=== PATIENT | female | born 1945 | race Caucasian/White ===

== ENCOUNTER 2020-07-04 09:30 | Observation (INO) | payer MEDICARE, SELFPAY ==
[2020-07-04] VITALS (10 sets, daily range): BP systolic 101–144; BP diastolic 50–68; PULSE 72–88; RESP 16–18; TEMP 36.4–37.7; O2SAT 92–99; BMI 38.5
--- NOTE | ~2020-07-04 | CT_ITS ---
EXAMINATION: CT brain wo con DATE: 07/04/2020 15:28 INDICATION: Headache TECHNIQUE: Computed tomography (CT) of the head was performed without intravenous contrast. Sagittal and coronal reconstructions were performed. The mA was adjusted according to patient size. Iterative reconstruction technique was employed. The dose-length product was 605.33 mGy-cm. COMPARISON: head CT dated 11/04/2012 FINDINGS: No acute intracranial hemorrhage, acute infarction or abnormal extra axial fluid collection. There is mild scattered white matter hypoattenuation consistent with chronic small vessel ischemic disease. Ventricles are normal and symmetric. No mass/mass effect. The orbits, paranasal sinuses and mastoid a ir cells are normal. Intracranial calcified cerebral atherosclerosis is noted. IMPRESSION: 1. No acute intracranial process. 2. Age-related changes with mild scattered white matter hypoattenuation consistent with chronic small vessel ischemic disease. Reviewed, dictated and finalized at location A. IMPRESSION: 1. No acute intracranial process. 2. Age-related changes with mild scattered white matter hypoattenuation consist ent with chronic small vessel ischemic disease.
--- NOTE | ~2020-07-04 | CT_ITS ---
EXAMINATION: CTA chest PE protocol EXAM DATE: 07/04/2020 12:36 INDICATION: Chronic thoracic pain. Generalized weakness and body aches. TECHNIQUE: Spiral CTA of the chest (pulmonary arteries) was performed with 100 cc Omnipaque 350 intr avenous contrast injection. Images were acquired during the pulmonary arterial phase. Coronal maxi mum intensity projection 3D-reconstructions were created by the technologist on dedicated workstation . Axial, coronal and sagittal reformatted images were reviewed. The dose-length product (DLP) for t his examination was 988.17 mGy-cm. The exposure was tailored according to patient size (auto mA exp osure control), and iterative reconstruction (ASIR) was used as additional dose reduction technique. Correlation is made to chest x-ray same day. FINDINGS: There are no pulmonary emboli in the 1st through 3rd order (central and interlobar) pulmon kwasi arteries. Some loss of attenuation in the left basilar segmental pulmonary arteries due to respi ratory motion, but no intraluminal filling defects suspected. No thoracic aortic dissection. Some l inear left basilar scarring, with elevated left hemidiaphragm. There are no pleural or pericardial e ffusions. Tracheobronchial tree is patent. There is no mediastinal, hilar or axillary lymphadenop athy. There is no pneumothorax. Heart normal in size. There is mild coronary arterial calcifica tion, arterial sclerosis. Anterior upper abdominal mesh. Right thyroid lobe nodule. There is mild t horacic spondylosis without osteoblastic or osteolytic lesions identified. IMPRESSION: 1. Limited left basilar segmental evaluation, but no pulmonary emboli are suspected or other acute f indings. 2. Left basilar scarring, elevated hemidiaphragm. Reviewed, dictated and finalized at location A. IMPRESSION: 1. Limited left basilar segmental evaluation, but no pulmonary emboli are susp ected or other acute findings. 2. Left basilar scarring, elevated hemidiaphragm.
--- NOTE | ~2020-07-04 | XR_ITS ---
EXAMINATION: XR chest 1V portable EXAM DATE: 07/04/2020 10:38 INDICATION: Pain all over. TECHNIQUE: Portable AP frontal chest x-ray was obtained. Comparison is made to prior examination from 09/26/2019. FINDINGS: Chronic left hemidiaphragm elevation, possible paralysis. This is unchanged. The lungs are clear. There are no pleural effusions. The cardiomediastinal silhouette is within normal limits. T here is no pneumothorax suspected. The bones and soft tissues are unremarkable. IMPRESSION: Chronic left hemidiaphragm elevation. Reviewed, dictated and finalized at location A.
--- NOTE | 2020-07-04 10:27 | ECG_ITS ---
Measurements Intervals [place] Rate: 78 P: 50 [place]: 135 QRS: -4 QRSD: 103 T: -8 QT: 400 QTc: 457 Interpretive Statements SINUS RHYTHM INCOMPLETE RIGHT BUNDLE BRANCH BLOCK LOW QRS VOLTAGE IN PRECORDIAL LEADS NONSPECIFIC ST & T-WAVE ABNORMALITY- ANT/INF LEADS BORDERLINE ECG Electronically Signed On 07-04-2020 16:53:55 CDT by Jonnathan Galdamez D.O.
[2020-07-04] MEDS: SODIUM CHLORIDE 0.9% IV 500 ML 999 ML IV CONT (10:46)
[2020-07-04] MEDS: FAMOTIDINE 20 MG/2 ML VIAL IV PUSH (10:46)
[2020-07-04 10:57] LABS: Basophils Percent Auto 0.2 % (0.2-1.2); Eosinophils Absolute Auto 0.1 K/mm3 (0-0.3); Eosinophils Percent Auto 0.3 % (0-4.4); Hematocrit 39.9 % (37.0-47.0); Hemoglobin 13.3 g/dL (12.0-15.0); Immature Granulocyte Absolute 0.09 K/mm3 (0.00-0.031); Immature Granulocyte Percent A 0.6 % (0-0.5); Lymphocytes Absolute Auto 0.71 K/mm3 (0.9-3.2); Lymphocytes Percent Auto 4.5 % (18.3-44.2); Mean Corpuscular HGB Conc 33.3 g/dl (32-36); Mean Corpuscular Hemoglobin 29.7 pg (26-34); Mean Corpuscular Volume 89.1 fl (80-100); Mean Platelet Volume 9.7 fl (7.4-10.4); Monocytes Absolute Auto 0.8 K/mm3 (0.1-0.6); Neutrophils Percent Auto 89.4 % (45.5-73.1); Platelet Count Result 283 k/mm3 (150-375); Red Blood Count 4.48 M/mm3 (4.2-5.4); Red Cell Distribution Width 14.6 % (11.5-14.5); White Blood Count 15.7 K/mm3 (4.5-10.0)
[2020-07-04 11:05] LABS: Ovalocytes 1+ (NORMAL); Platelet Estimate Adequate (Adequate)
[2020-07-04 11:06] LABS: INR 1.1; Prothrombin Time 13.8 Seconds (11.1-14.7)
[2020-07-04 11:07] LABS: Partial Thromboplastin Time 27.8 SECONDS (22.3-36.8)
[2020-07-04 11:07] LABS: Add Urine Microscopic? YES; Appearance Urine Clear (Clear); Bilirubin Urine 1+ (Negative); Blood Urine Negative (Negative); Color Urine Yellow (Yellow); Glucose Urine UA Negative (Negative); Ketones Urine Trace mg/dL (Negative); Leukocyte Esterase Ur Negative LEU/UL (Negative); Mucus Urine Heavy /lpf; Nitrate Urine Negative (Negative); Protein Urine 1+ mg/dL (Negative); Specific Grav Ur 1.028 (1.001-1.035); Squamous Epithelial Cell Urine Rare /hpf (Few); Urobilinogen Urine Negative mg/dL (<2.0); WBC Urine 0-3 /hpf
[2020-07-04 11:09] LABS: D Dimer 0.75 ug/mL (<0.48)
[2020-07-04 11:19] LABS: Alanine Aminotransferase 16 U/L (4-35); Albumin Level 3.9 g/dL (3.5-5.1); Alkaline Phosphatase 76 U/L (38-126); Anion Gap 6 mmol/L (8-16); Aspartate Amino Transferase 22 U/L (14-36); Bilirubin,Total 0.7 mg/dL (0.2-1.3); Blood Urea Nitrogen 18 mg/dL (7-17); CRP 6.2 mg/dL (<1.0); Carbon Dioxide 34 mmol/L (22-30); Chloride 99 mmol/L (98-107); Estimated CRCL calculation 75 ml/min; Estimated Glomerular Filt Rate > 60; Glucose 121 mg/dL (65-105); Lipase 25 U/L (23-300); Potassium 3.2 mmol/L (3.4-5.0); Sodium 139 mmol/L (137-145)
[2020-07-04 11:20] LABS: Creatine Kinase 60 U/L (30-135)
[2020-07-04 11:22] LABS: Erythrocyte Sedimentation Rate 26 mm/hr (0-20)
[2020-07-04 11:28] LABS: Troponin I < 0.012 ng/mL (0.000-0.034)
[2020-07-04 12:00] LABS: Alveolar/Arterial O2 Gradient 28.3 mmHg; Base Excess ABG 4.4 mEq/l (+/-2.0); Carboxyhemoglobin 0.8 % THb (0-2.0); Device ROOM AIR; Fractional Inspired Oxygen 21 %; HCO3 ABG 29.1 mEq/l (22.0-26.0); Methemoglobin ABG 0.2 %THb (0-1.5); Modified Allen's Test Pass; Oxygen Saturation ABG 94.3 % (95.0-100.0); Oxyhemoglobin 92.7 % THb (90.0-100.0); PCO2 ABG 43.9 mmHg (35.0-45.0); PO2 ABG 68.9 mmHg (80.0-100.0); PO2 FiO2 Ratio Arterial Blood 3.28 %; Reduced Hemoglobin 6.3 %THb (0-5.0); Site Drawn RIGHT RADIAL
[2020-07-04] MEDS: MORPHINE SULFATE (*CRX) 2 MG/ML INJ IV PUSH ×2 (12:01→19:18)
--- NOTE | 2020-07-04 12:44 | PC.NURSE ---
PT STILL COMPLAINING OF 8/[address] PA YAA AWARE, NEW ORDERS PLACED.
[2020-07-04] MEDS: MORPHINE SULFATE (*CRX) 4 MG/ML INJ IV PUSH (12:49)
--- NOTE | 2020-07-04 13:59 | PC.NURSE ---
ATTEMPTED TO AMBULATE PT, PT STATES THAT SHE FEELS LIGHTHEADED, PT HAS UNSTEADY GAIT AND NEEDS ASSIST X2 TO WALK TO COUNTER. RAJESH MON AWARE.
--- NOTE | 2020-07-04 14:34 | ED.GENADULT ---
HPI - General Adult General Chief complaint: Unspecified Stated complaint: severe pain all over my body Time Seen by Provider: 07/04/20 10:15 Source: patient and family Mode of arrival: EMS Limitations: no limitations History of Present Illness HPI narrative: Patient is a 74-year-old female who presents to emergency department for evaluation of generalized body aches noting pain that woke her in the middle the night emanating from the thoracic region and into the extremities and down the back also noting mild headache. Patient denies injury trauma similar occurrence in the past or sick exposures or contacts. Patient presents by EMS due to the level of pain being on tolerable and difficulty with activity secondary to the pain patient also notes some associated nausea. Patient on arrival to emergency department appears uncomfortable but in no distress. Patient's daughter accompanies her. Patient lives at home by herself and is normally ambulatory without complications. Patient has history of chronic low back pain for which she sees pain management and has received injections but does not currently take narcotics or other medications for this. Related Data Home Medications Medication Instructions Recorded Confirmed bupropion HCl 300 mg PO DAILY 09/26/19 09/26/19 citalopram 40 mg DAILY 09/26/19 09/26/19 gabapentin 300 mg TID 09/26/19 09/26/19 hydrochlorothiazide 50 mg DAILY 09/26/19 09/26/19 omeprazole 20 mg DAILY 09/26/19 09/26/19 potassium chloride 20 meq PO DAILY 09/26/19 09/26/19 propranolol 60 mg PO DAILY 09/26/19 09/26/19 simvastatin 40 mg DAILY 09/26/19 09/26/19 Allergies Allergy/AdvReac Type Severity Reaction Status Date / Time Penicillins Allergy Unknown Rash Verified 09/26/19 16:24 Review of Systems Review of Systems: All systems reviewed & are unremarkable except as noted in HPI and below PMFSH Past Medical History Medical History Chronic low back pain Depression Surgical History Surgical History History of orthopedic surgery Social History Social History Smoking status: Never smoker Gender identity (if verbalized by the patient): Female Exam Narrative: Exam Narrative: GENERAL: Well-appearing, well-nourished, and in no acute distress. HEAD: Normocephalic, atraumatic. EYES: PERRLA and EOMI. ENT: Nares clear, no rhinorrhea or epistaxis. Mucous membranes moist. Oropharynx without tonsillar hypertrophy exudate or other lesions. NECK: Supple. No adenopathy or masses. CHEST: Clear to auscultation. No respiratory distress. No wheezes rales or rhonchi HEART: Regular rate and rhythm. No murmur heard. Normal peripheral pulses. ABDOMEN: Soft, nontender, nondistended EXTREMITIES: Normal range of motion. No edema. Patient has tenderness of the spine with no deformities rashes or other abnormalities noted on exam SKIN: Warm, dry, no rash. NEURO: No focal deficits. Alert and oriented x3. Cranial nerves II through XII grossly intact. Moves all extremities without difficulty but does note pain with moving them PSYCH: Normal mood and affect. Course Course Emergency Course: Patient in the room continued to have pain aware of case findings treatment plan and diagnosis patient did have some improvement with medications however with ambulation or activity patient had difficulty ambulating was off balance with increasing pain. Unsure as to the etiology of the patient's pain could be early illness given the white count however no other high risk changes in the imaging or blood work and will bring the patient in for further evaluation of her pain and new disability secondary to her pain Consultations Consultation #1: Discussed case with hospitalist who has agreed to accept the patient Date: 07/04/20 Time: 14:48 Vital Signs Vital signs: Vital Sig
--- NOTE | 2020-07-04 17:10 | ADMGEN ---
This patient, Adalgisa Wu, was admitted to 2 Medical Room 259-. Patient/family oriented to hospital policies and general routines including ID bracelet, bed and alarms, visiting hours, pain management, procedures, bathroom and other care routines, personal items, smoking policy, room service/diet, and visiting hours. Valuables list has been completed. Information on how to activate the Rapid Response Team has been discussed. Patient/Family are encouraged to report perceived risks to care and to ask questions if they do not understand what they are told or what they should do.
[2020-07-04] MEDS: ONDANSETRON INJ 4 MG/2 ML VIAL IV PUSH (19:27)
[2020-07-04] MEDS: HYDROcodone/acetaminophen (*CRX) 5-325 MG TABLET 1 TAB PO (22:47)
[2020-07-05] MEDS: clonazePAM (*CRX) 0.5 MG TABLET PO ×2 (00:13→21:05)
[2020-07-05] MEDS: POTASSIUM CHLORIDE 20 MEQ TABLET 40 MEQ PO (00:53)
[2020-07-05] MEDS: MORPHINE SULFATE (*CRX) 2 MG/ML INJ IV PUSH ×3 (00:54→15:24)
--- NOTE | 2020-07-05 02:28 | PM.IMHP ---
H&P: HPI History of Present Illness Date/Time: 07/05/20 01:20 Chief complaint: weakness, pain all over Narrative: Adalgisa Wu is a 74 year old female with a past medical history of hypertension, depression, chronic back pain and multiple prior back surgeries who presented to the ER after developing sudden onset of fatigue, myalgias and worsening back pain on 07/03/2020. She states that she had been up earlier that day doing her usual amount of activity without difficulty. Then that evening she was aching all over with increased pain across her shoulder blades in her thoracic spine and in her lumbar spine. She had myalgias, decreased appetite and a mild headache. She denies any cough or cold symptoms. 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 She denies any nausea or vomiting. She has not had any changes in her bowel habits. She denies loss of sense of taste or smell but admits that she really has not eaten anything since the afternoon of the . She reports that the pain in her shoulders is worse with palpation of the muscles. She has some point tenderness over the L5 region along the spinous process but otherwise her lumbar pain extends in the to the paraspinal muscles bilaterally and down into the sacrum. She has not had any loss of sensation or loss of bowel or bladder control. Influenza swab performed in the ER was negative. Review of Systems Review of Systems: Narrative: 12 systems were reviewed with pertinent positives and negatives per HPI. Except as documented in the HPI, all other systems were reviewed and are negative. FORMERLY [facility], 1928–[facility] Past Medical History Medical History (Updated 07/05/20 @ 05:09 by Maddy Rasheed DO) Cataracts, bilateral Maturing Chronic low back pain Managed by Dr. Brennan currently getting treated with injections Depression GERD (gastroesophageal reflux disease) Hypercholesterolemia Obesity Obstructive sleep apnea Non adherent to CPAP therapy TIA (transient ischemic attack) 2014 Surgical History Surgical History (Updated 07/05/20 @ 05:03 by Maddy Rasheed DO) H/O cervical spine surgery 1993 with anterior cervical fusion History of cardiac catheterization Normal May 2019 History of gastric bypass In 2002 with subsequent reversal after prolonged hospitalization due to infection. 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 She is and lives in [place]. She has 1 daughter. Primary care physician: She reports that her primary care physician Dr. Keanu Urias retired last summer. She has not yet become established with a new provider. Code status: Full code Surrogate decision maker: Aure Rodriguez (daughter) Smoking status: Never smoker Second hand tobacco smoke exposure: Yes Alcohol intake: never Substance use: never Gender identity (if verbalized by the patient): Female Sexual Orientation (if Verbalized by the Patient): Straight or Heterosexual Spiritual care concerns: No Meds Home Medications and Allergies Home Medications Medication Instructions Recorded Confirmed Type bupropion HCl 300 mg PO DAILY 09/26/19 07/04/20 History citalopram 40 mg PO DAILY 09/26/19 07/04/20 History gabapentin 300 mg PO BID 09/26/19 07/04/20 History hydrochlorothiazide 50 mg PO DAILY 09/26/19 07/04/20 History omeprazole 20 mg PO DAILY 09/26/19 07/04/20 History potassium chloride 20 meq PO
--- NOTE | 2020-07-05 03:24 | PC.NURSE ---
Due to covid testing patient transferred to med surg. Report given to Eduardo.
[2020-07-05 03:30] VITALS: BP 122/64; PULSE 82; RESP 20; TEMP 36.7; O2SAT 93
[2020-07-05 06:16] LABS: Basophils Percent Auto 0.3 % (0.2-1.2); Eosinophils Absolute Auto 0.1 K/mm3 (0-0.3); Eosinophils Percent Auto 0.5 % (0-4.4); Hematocrit 35.7 % (37.0-47.0); Immature Granulocyte Absolute 0.04 K/mm3 (0.00-0.031); Immature Granulocyte Percent A 0.4 % (0-0.5); Lymphocytes Absolute Auto 1.54 K/mm3 (0.9-3.2); Lymphocytes Percent Auto 14.2 % (18.3-44.2); Mean Corpuscular HGB Conc 33.6 g/dl (32-36); Mean Corpuscular Hemoglobin 30.1 pg (26-34); Mean Corpuscular Volume 89.5 fl (80-100); Mean Platelet Volume 9.9 fl (7.4-10.4); Monocytes Absolute Auto 1.1 K/mm3 (0.1-0.6); Monocytes Percent Auto 9.9 % (2.6-8.5); Neutrophils Absolute Auto 8.1 K/mm3 (1.3-6.7); Neutrophils Percent Auto 74.7 % (45.5-73.1); Platelet Count Result 235 k/mm3 (150-375); Red Blood Count 3.99 M/mm3 (4.2-5.4); Red Cell Distribution Width 14.8 % (11.5-14.5); White Blood Count 10.9 K/mm3 (4.5-10.0)
[2020-07-05 06:28] LABS: Magnesium 1.8 mg/dL (1.6-2.3)
[2020-07-05 06:30] LABS: Anion Gap 6 mmol/L (8-16); Blood Urea Nitrogen 13 mg/dL (7-17); Calcium 8.6 mg/dL (8.4-10.2); Carbon Dioxide 33 mmol/L (22-30); Chloride 99 mmol/L (98-107); Estimated CRCL calculation 83 ml/min; Estimated Glomerular Filt Rate > 60; Glucose 100 mg/dL (65-105); Potassium 3.3 mmol/L (3.4-5.0); Sodium 138 mmol/L (137-145)
[2020-07-05 08:00] VITALS: BP 119/56; PULSE 100; PULSE 82; RESP 16; TEMP 36.7; O2SAT 94
[2020-07-05] MEDS: buPROPion HCL XL (24 HR) 150 MG TABCR 300 MG PO (08:09)
[2020-07-05] MEDS: TRIAMCINOLONE ACET 0.1% CREAM 15 GM TUBE 1 APPLIC TOPICAL (08:09)
[2020-07-05] MEDS: NAPROXEN 500 MG TABLET PO ×2 (08:09→17:47)
[2020-07-05] MEDS: ENOXAPARIN 40 MG/0.4 ML SYRINGE SUB-Q (08:10)
[2020-07-05 08:11] VITALS: PULSE 100
[2020-07-05] MEDS: PROPRANOLOL HCL 60 MG CAPSULE CR 180 MG PO (08:11)
[2020-07-05] MEDS: HYDROcodone/acetaminophen (*CRX) 5-325 MG TABLET 1 TAB PO (08:13)
[2020-07-05] MEDS: SIMVASTATIN 20 MG TABLET 40 MG PO (09:45)
[2020-07-05] MEDS: POTASSIUM CHLORIDE 20 MEQ TABLET.ER PO (09:45)
[2020-07-05] MEDS: hydroCHLOROthiazide 25 MG TABLET 50 MG PO (09:45)
[2020-07-05] MEDS: CITALOPRAM HYDROBROMIDE 20 MG TABLET 40 MG PO (09:45)
[2020-07-05] MEDS: GABAPENTIN 300 MG CAPSULE PO ×2 (09:45→17:47)
[2020-07-05 12:00] VITALS: BP 116/66; PULSE 65; RESP 16; TEMP 36.8; O2SAT 95
[2020-07-05] MEDS: PANTOPRAZOLE SOD SESQUIHYDRATE 20 MG TAB PO (15:24)
[2020-07-05 16:00] VITALS: BP 109/56; PULSE 68; RESP 16; TEMP 36.8; O2SAT 95
--- NOTE | 2020-07-05 16:48 | PM.IMPN ---
Progress Note: A&P Assessment and Plan (1) Leukocytosis: Code(s): D72.829 - Elevated white blood cell count, unspecified Status: Acute Assessment and Plan: Mild leukocytosis with no definitive source of infection, but mildly elevated temperature above baseline at 99.8. Influenza swab is negative. Will check COVID swab given the patient's associated myalgias, fatigue, and headache of somewhat sudden onset. 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 Blood cultures are pending. Is possible the patient could have a osteomyelitis or diskitis given her history of back pain but the distribution of her back pain seems inconsistent with fasting last colitis or diskitis. 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 (2) Myalgia: Code(s): M79.10 - Myalgia, unspecified site Status: Acute Assessment and Plan: Please see above plan (3) Back pain: Code(s): M54.9 - Dorsalgia, unspecified Status: Acute Assessment and Plan: Please see above plan. Physical therapy and occupation therapy have been consulted. Pain medications have been ordered with [place] and morphine as needed. She reports that her pain has improved since admission. Her fatigue and myalgias still persist. 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 Review of Systems Review of Systems: All systems reviewed & are unremarkable except as noted in HPI and below Exam Narrative: Exam Narrative: patient is seen in the room but not examined temperature is 98? point pulse is 60 respiratory 68 pulse ox is 95% on 1 L nasal can, patient is 109/56 Const: General: comfortable and no acute distress HENMT: General nose exam: Normal nares present Eyes: Sclera: sclerae normal Neck: Other: no retraction Resp: Effort & Inspection: normal respiratory effort GI: Other: not distended Skin: General skin exam: normal color Neuro: Speech: normal speech Extrem: General: normal to inspection Psych: Affect: Anxious affect present Objective Data Vital Signs Vital Signs: Vital Signs - 24 hr 07/04/20 16:57 07/04/20 17:19 07/04/20 19:19 Temperature 99.8 F H 97.8 F Pulse Rate 72 83 Respiratory Rate 18 18 Blood Pressure 111/61 128/66 Pulse Oximetry 99 97 07/04/20 22:00 07/05/20 03:30 07/05/20 08:00 Temperature 98.1 F 98.1 F 98.0 F Pulse Rate 88 82 100 Respiratory Rate 16 20 16 Blood Pressure 101/50 L 122/64 119/56 L Pulse Oximetry 94 93 94 07/05/20 08:11 07/05/20 12:00 Temperature 98.3 F Pulse Rate 100 65 Respiratory Rate 16 Blood Pressure 116/66 Pulse Oximetry 95 Intake/Output Intake/Output: Intake & Output 07/02/20 07/03/20 07/04/20 07/05/20 23:59 23:59 23:59 23:59 Intake Total 650 940 Output Total 100 800
[2020-07-05 18:12] LABS: SARS-CoV-2 RNA PCR Negative
[2020-07-05 22:00] VITALS: BP 127/57; PULSE 72; RESP 16; TEMP 36.8; O2SAT 96
[2020-07-06 06:00] VITALS: BP 112/55; PULSE 76; RESP 16; TEMP 36.7; O2SAT 97
[2020-07-06] MEDS: HYDROcodone/acetaminophen (*CRX) 5-325 MG TABLET 1 TAB PO (09:19)
[2020-07-06] MEDS: SIMVASTATIN 20 MG TABLET 40 MG PO (09:19)
[2020-07-06] MEDS: GABAPENTIN 300 MG CAPSULE PO (09:19)
[2020-07-06] MEDS: buPROPion HCL XL (24 HR) 150 MG TABCR 300 MG PO (09:19)
[2020-07-06] MEDS: CITALOPRAM HYDROBROMIDE 20 MG TABLET 40 MG PO (09:20)
[2020-07-06] MEDS: NAPROXEN 500 MG TABLET PO (09:20)
[2020-07-06] MEDS: hydroCHLOROthiazide 25 MG TABLET 50 MG PO (09:20)
[2020-07-06] MEDS: TRIAMCINOLONE ACET 0.1% CREAM 15 GM TUBE 1 APPLIC TOPICAL (09:20)
[2020-07-06] MEDS: ENOXAPARIN 40 MG/0.4 ML SYRINGE SUB-Q (09:20)
[2020-07-06] MEDS: POTASSIUM CHLORIDE 20 MEQ TABLET.ER PO (09:20)
[2020-07-06 09:21] VITALS: PULSE 72
[2020-07-06] MEDS: PROPRANOLOL HCL 60 MG CAPSULE CR 180 MG PO (09:21)
[2020-07-06] MEDS: PANTOPRAZOLE SOD SESQUIHYDRATE 20 MG TAB PO (10:03)
[2020-07-06 10:28] LABS: Hematocrit 36.5 % (37.0-47.0); Mean Corpuscular HGB Conc 32.9 g/dl (32-36); Mean Corpuscular Hemoglobin 29.3 pg (26-34); Mean Platelet Volume 10.1 fl (7.4-10.4); Platelet Count Result 310 k/mm3 (150-375); Red Cell Distribution Width 14.7 % (11.5-14.5); White Blood Count 8.6 K/mm3 (4.5-10.0)
[2020-07-06 10:41] LABS: Anion Gap 4 mmol/L (8-16); Blood Urea Nitrogen 19 mg/dL (7-17); Calcium 8.8 mg/dL (8.4-10.2); Carbon Dioxide 38 mmol/L (22-30); Chloride 95 mmol/L (98-107); Estimated CRCL calculation 74 ml/min; Estimated Glomerular Filt Rate > 60; Glucose 156 mg/dL (65-105); Magnesium 1.8 mg/dL (1.6-2.3); Potassium 3.3 mmol/L (3.4-5.0); Sodium 137 mmol/L (137-145)
[2020-07-06] MEDS: POTASSIUM CHLORIDE 20 MEQ TABLET 40 MEQ PO (11:57)
--- NOTE | 2020-07-06 11:59 | PM.DS ---
DS: Admitting Diagnosis Admitting Diagnosis Admitting Diagnosis: weakness, pain all over DS: Discharge Diagnosis Discharge Diagnosis (1) Leukocytosis: Code(s): D72.829 - Elevated white blood cell count, unspecified Status: Acute Assessment and Plan: Mild leukocytosis with no definitive source of infection, but mildly elevated temperature above baseline at 99.8. Influenza swab is negative. Will check COVID swab given the patient's associated myalgias, fatigue, and headache of somewhat sudden onset. 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 Blood cultures are pending. Is possible the patient could have a osteomyelitis or diskitis given her history of back pain but the distribution of her back pain seems inconsistent with fasting last colitis or diskitis. 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 (2) Myalgia: Code(s): M79.10 - Myalgia, unspecified site Status: Acute Assessment and Plan: Please see above plan (3) Back pain: Code(s): M54.9 - Dorsalgia, unspecified Status: Acute Assessment and Plan: Please see above plan. Physical therapy and occupation therapy have been consulted. Pain medications have been ordered with [place] and morphine as needed. She reports that her pain has improved since admission. Her fatigue and myalgias still persist. DS: Summary Hospital Course Reason for hospitalization: Chief complaint: weakness, pain all over Narrative: Adalgisa Wu is a 74 year old female with a past medical history of hypertension, depression, chronic back pain and multiple prior back surgeries who presented to the ER after developing sudden onset of fatigue, myalgias and worsening back pain on 07/03/2020. She states that she had been up earlier that day doing her usual amount of activity without difficulty. Then that evening she was aching all over with increased pain across her shoulder blades in her thoracic spine and in her lumbar spine. She had myalgias, decreased appetite and a mild headache. She denies any cough or cold symptoms. 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 She denies any nausea or vomiting. She has not had any changes in her bowel habits. She denies loss of sense of taste or smell but admits that she really has not eaten anything since the afternoon of the . She reports that the pain in her shoulders is worse with palpation of the muscles. She has some point tenderness over the L5 region along the spinous process but otherwise her lumbar pain extends in the to the paraspinal muscles bilaterally and down into the sacrum. She has not had any loss of sensation or loss of bowel or bladder control. 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
[2020-07-06 14:00] VITALS: BP 117/56; PULSE 66; RESP 18; TEMP 36.3; O2SAT 98
== END 2020-07-06 14:20 | disposition home or self-care (01) ==
LOC: ANHED 15:37 → ANH2MED 07-05 02:29 → ANH3MEDSUR 07-05 11:05 → ANH2MED 07-08 11:57 → ANH3MEDSUR 07-08 11:57
PROVIDERS: Emergency Medicine Emergency Medical Services; Internal Medicine; Admitting Provider Internal Medicine; Emergency Provider Emergency Medicine; Visit Provider Family Medicine
DX: M79.10 Myalgia, unspecified site (principal); Z20.828 Contact with and (suspected) exposure to other viral communicable diseases; R53.83 Other fatigue; G89.29 Other chronic pain; D72.829 Elevated white blood cell count, unspecified; M54.5 Low back pain; E66.9 Obesity, unspecified; G47.33 Obstructive sleep apnea (adult) (pediatric); Z86.73 Personal history of transient ischemic attack (TIA), and cerebral infarction without residual deficits; Z68.38 Body mass index [BMI] 38.0-38.9, adult; Z79.01 Long term (current) use of anticoagulants
CPT/HCPCS: 36415; 36600; 51701; 70450; 71045; 71275; 80048; 80053; 81001; 82375; 82550; 82805; 83050; 83605; 83690; 83735; 84484; 85025; 85027; 85380; 85610; 85652; 85730; 86140; 87040; 87635; 87804; 93005; 96361; 96365; 96372; 96375; 96376; 97110; 97161; 97165; 97530; 97535; 99285; A9270; C9803; G0378; J0131; J1650; J2270; J2405; J7040; Q9967; U0003

== ENCOUNTER 2020-12-20 19:45 | Emergency (ER) | payer MEDICARE, SELFPAY ==
[2020-12-20 19:57] VITALS: BP 85/64; PULSE 75; RESP 20; TEMP 36; O2SAT 96
--- NOTE | 2020-12-20 20:08 | ED.SKABFB ---
HPI - Skin/Abscess/Foreign Bdy General Chief complaint: Skin/Abscess/Foreign Body Stated complaint: Itching on scalp Time Seen by Provider: 12/20/20 19:55 Source: patient and RN notes reviewed Mode of arrival: ambulatory Limitations: no limitations History of Present Illness HPI narrative: 75-year-old female presents to the [facility] with complaints of an itchy scalp. Patient reports that it started this morning. Has tried taking Benadryl (8 25mg since waking up) with no relief. Was started on antibiotic a week ago for an ingrown toenail. No new creams or ointments lotions or detergents. Patient wears a wig. States that she has been using the tea tree oil on her scalp for over over 1 hours. Denies chest pain or shortness of breath. No facial swelling. No lip swelling. Related Data Home Medications Medication Instructions Recorded Confirmed bupropion HCl 300 mg PO DAILY 09/26/19 12/20/20 citalopram 40 mg PO DAILY 09/26/19 12/20/20 hydrochlorothiazide 50 mg PO DAILY 09/26/19 12/20/20 omeprazole 20 mg PO DAILY 09/26/19 12/20/20 potassium chloride 20 meq PO DAILY 09/26/19 12/20/20 propranolol 60 mg PO DAILY 09/26/19 12/20/20 simvastatin 40 mg PO DAILY 09/26/19 12/20/20 clonazepam 1 mg PO HS 07/04/20 12/20/20 propranolol 120 mg PO DAILY 07/04/20 12/20/20 triamcinolone acetonide 1 applic TOPICAL DAILY 07/04/20 12/20/20 naproxen 375 mg PO BID 12/20/20 12/20/20 sulfamethoxazole-trimethoprim 1 tablet PO BID 12/20/20 12/20/20 Allergies Allergy/AdvReac Type Severity Reaction Status Date / Time Penicillins Allergy Unknown Rash Verified 07/04/20 19:41 chlorhexidine Allergy Rash Verified 07/04/20 19:43 Review of Systems Review of Systems: Narrative: CONSTITUTIONAL: Denies fever, chills, or sweats. EYES: Denies visual changes, redness, or discharge. ENT: Denies rhinorrhea, congestion, sore throat, or otalgia. CARDIOVASCULAR: Denies chest pain, palpitations, or edema. RESPIRATORY: Denies cough or dyspnea. SKIN: Denies rash. Reports itching of the scalp only. MUSCULOSKELETAL: Denies back pain, joint pain, or myalgia. NEUROLOGIC: Denies headache, numbness, or weakness. PSYCHIATRIC: Denies anxiety or depression. All other systems reviewed are negative, except as documented in HPI. [facility] Past Medical History Medical History (Updated 12/21/20 @ 00:00 by Background Daemon) Cataracts, bilateral Maturing Chronic low back pain Managed by Dr. Brennan currently getting treated with injections Depression GERD (gastroesophageal reflux disease) Hypercholesterolemia Obesity Obstructive sleep apnea Non adherent to CPAP therapy TIA (transient ischemic attack) 2014 Surgical History Surgical History H/O cervical spine surgery 1993 with anterior cervical fusion History of cardiac catheterization Normal May 2019 History of gastric bypass In 2002 with subsequent reversal after prolonged hospitalization due to infection. 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 She has 1 daughter. Primary care physician: She reports that her primary care physician Dr. Keanu Urias retired last summer. She has not yet become established with a new provider. Code status: Full code Surrogate decision maker: Aure Rodriguez (daughter) Smoking status: Never smoker Second hand tobacco smoke exposure: Yes Alcohol intake: never Substance use: never
[2020-12-20 20:18] VITALS: BP 89/65
== END 2020-12-20 20:19 | disposition home or self-care (01) ==
PROVIDERS: Emergency Provider Nurse Practitioner; PCP Internal Medicine
DX: L29.9 Pruritus, unspecified (principal); L50.9 Urticaria, unspecified; F32.9 Major depressive disorder, single episode, unspecified; E78.00 Pure hypercholesterolemia, unspecified; K21.9 Gastro-esophageal reflux disease without esophagitis; G47.33 Obstructive sleep apnea (adult) (pediatric); Z86.73 Personal history of transient ischemic attack (TIA), and cerebral infarction without residual deficits; E66.9 Obesity, unspecified; Z68.36 Body mass index [BMI] 36.0-36.9, adult; Z98.84 Bariatric surgery status; Z96.653 Presence of artificial knee joint, bilateral
CPT/HCPCS: 99211; G0463

== ENCOUNTER 2022-09-16 14:48 | Emergency (ER) | payer MEDICARE, SELFPAY ==
--- NOTE | ~2022-09-16 | XR_ITS ---
EXAMINATION: XR chest 2V DATE: 09/16/2022 17:37 INDICATION: Shortness of breath. TECHNIQUE: frontal and lateral views of the chest were obtained. COMPARISON: Chest radiograph and CT dated 07/04/2020 FINDINGS: Chronic eventration along the medial right hemidiaphragm. Unchanged elevation of the lateral left hem idiaphragm with opacities at the left costophrenic angle which on prior CT appear to correspond to a small diaphragmatic hernia containing fat with adjacent atelectasis/scarring. Additional linear bands of discoid atelectasis/scarring at the lingula and left lower lobe best appreciated on the lateral p rojection. No new airspace opacities, pulmonary edema, pleural effusion or pneumothorax. The cardiome diastinal silhouette is within normal limits for AP technique. Moderate thoracic spondylosis. IMPRESSION: 1. No acute cardiopulmonary disease. 2. Chronic atelectasis/scarring at the left lower lung zone. Reviewed, dictated and finalized at location A. NEERING PROGRAMMER
[2022-09-16 15:08] VITALS: BP 112/90; PULSE 80; RESP 18; TEMP 37.2; O2SAT 95
--- NOTE | 2022-09-16 17:07 | ECG_ITS ---
Measurements Intervals [place] Rate: 70 P: 35 CO: 150 QRS: -7 QRSD: 93 T: -6 QT: 391 QTc: 424 Interpretive Statements SINUS RHYTHM LOW QRS VOLTAGE IN PRECORDIAL LEADS [QRS DEFLECTION < 1.0 mV IN CHEST LEADS] COMPARED TO ECG 07/04/2020 11:06:13 NO SIGNIFICANT CHANGES Electronically Signed On 09-16-2022 21:18:13 DOBBY LOOMS PEGGER by Beatirz Jade M.D.
--- NOTE | 2022-09-16 17:16 | ED.GENADULT ---
HPI - General Adult General Chief complaint: Shortness of Breath/Dyspnea Stated complaint: SOB Time Seen by Provider: 09/16/22 16:31 History of Present Illness HPI narrative: 76-year-old female with a history of GERD, HLD, morbid obesity, sleep apnea, TIA presents for evaluation of shortness of breath x1 week. Patient has frequent dry cough which causes a burning sensation in her chest while she is coughing. She was seen at outside hospital and given Keflex and albuterol which is not improving her symptoms. She denies fever. Per family at bedside the patient has a history of chronic bronchitis . Related Data Home Medications Medication Instructions Recorded Confirmed bupropion HCl 300 mg 24 hr tablet, 300 mg PO DAILY 09/26/19 12/20/20 extended release citalopram 40 mg tablet 40 mg PO DAILY 09/26/19 12/20/20 hydrochlorothiazide 50 mg tablet 50 mg PO DAILY 09/26/19 12/20/20 omeprazole 40 mg capsule,delayed 20 mg PO DAILY 09/26/19 12/20/20 release potassium chloride 20 mEq 20 meq PO DAILY 09/26/19 12/20/20 tablet,extended release(part/cryst) propranolol 60 mg capsule,24 60 mg PO DAILY 09/26/19 12/20/20 hr,extended release simvastatin 40 mg tablet 40 mg PO DAILY 09/26/19 12/20/20 clonazepam 1 mg tablet 1 mg PO HS 07/04/20 12/20/20 propranolol 120 mg capsule,24 120 mg PO DAILY 07/04/20 12/20/20 hr,extended release triamcinolone acetonide 0.1 % 1 applic topical DAILY 07/04/20 12/20/20 topical cream naproxen 375 mg tablet 375 mg PO BID 12/20/20 12/20/20 sulfamethoxazole 800 1 tablet PO BID 12/20/20 12/20/20 mg-trimethoprim 160 mg tablet Allergies Allergy/AdvReac Type Severity Reaction Status Date / Time Penicillins Allergy Unknown Rash Verified 09/16/22 15:11 chlorhexidine Allergy Rash Verified 09/16/22 15:11 Sulfa (Sulfonamide Allergy Rash Verified 09/16/22 15:11 Antibiotics) Review of Systems Review of Systems: CONSTITUTIONAL: Denies fever, chills, or sweats. EYES: Denies visual changes, redness, or discharge. ENT: Denies rhinorrhea, congestion, sore throat, or otalgia. CARDIOVASCULAR: Denies chest pain, palpitations, or edema. RESPIRATORY: Denies cough or dyspnea. GASTROINTESTINAL: Denies abdominal pain, nausea, vomiting, or diarrhea. GENITOURINARY: Denies dysuria or hematuria. SKIN: Denies rash or itching. MUSCULOSKELETAL: Denies back pain, joint pain, or myalgia. NEUROLOGIC: Denies headache, numbness, or weakness. PSYCHIATRIC: Denies anxiety or depression. [facility] Past Medical History Medical History Cataracts, bilateral Maturing Chronic low back pain Managed by Dr. Brennan currently getting treated with injections Depression GERD (gastroesophageal reflux disease) Hypercholesterolemia Obesity Obstructive sleep apnea Non adherent to CPAP therapy TIA (transient ischemic attack) 2014 Surgical History Surgical History H/O cervical spine surgery 1993 with anterior cervical fusion History of cardiac catheterization Normal May 2019 History of gastric bypass In 2002 with subsequent reversal after prolonged hospitalization due to infection. 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 She has 1 daughter. Primary care physician: She reports that her primary care physician Dr. Keanu Urias retired last summer. She has not
--- NOTE | 2022-09-16 17:30 | PC.NURSE ---
pt in XRAY at this time.
[2022-09-16 17:52] VITALS: O2SAT 98
[2022-09-16 17:52] LABS: Basophils Percent Auto 0.6 % (0.2-1.2); Eosinophils Absolute Auto 0.1 K/mm3 (0-0.3); Eosinophils Percent Auto 0.9 % (0-4.4); Hematocrit 31.4 % (37.0-47.0); Immature Granulocyte Absolute 0.01 K/mm3 (0.00-0.031); Immature Granulocyte Percent A 0.2 % (0-0.5); Lymphocytes Absolute Auto 0.68 K/mm3 (0.9-3.2); Lymphocytes Percent Auto 12.6 % (18.3-44.2); Mean Corpuscular HGB Conc 31.8 g/dl (32-36); Mean Corpuscular Hemoglobin 26.7 pg (26-34); Monocytes Absolute Auto 0.8 K/mm3 (0.1-0.6); Monocytes Percent Auto 14.7 % (2.6-8.5); Neutrophils Absolute Auto 3.8 K/mm3 (1.3-6.7); Platelet Count Result 300 k/mm3 (150-375); Red Blood Count 3.74 M/mm3 (4.2-5.4); Red Cell Distribution Width 15.9 % (11.5-14.5); White Blood Count 5.4 K/mm3 (4.5-10.0)
[2022-09-16 17:53] VITALS: PULSE 73
[2022-09-16 18:04] VITALS: BP 120/61; PULSE 73; RESP 13; O2SAT 97
[2022-09-16 18:08] LABS: Alanine Aminotransferase 16 U/L (6-35); Albumin Level 3.9 g/dL (3.5-5.1); Alkaline Phosphatase 64 U/L (38-126); Anion Gap 5 mmol/L (8-16); Aspartate Amino Transferase 34 U/L (14-36); Bilirubin,Total 0.5 mg/dL (0.2-1.3); Blood Urea Nitrogen 12 mg/dL (7-17); Calcium 8.5 mg/dL (8.4-10.2); Carbon Dioxide 30 mmol/L (22-30); Chloride 98 mmol/L (98-107); Estimated CRCL calculation 55 ml/min; Estimated Glomerular Filt Rate 54; Glucose 94 mg/dL (65-110); Potassium 3.6 mmol/L (3.4-5.0); Sodium 133 mmol/L (137-145)
[2022-09-16 18:19] LABS: NT Pro B Type Natriuretic Pept 930 pg/mL (5-100); Troponin I < 0.012 ng/mL (0.000-0.034)
[2022-09-16 19:18] VITALS: BP 112/56; PULSE 75; RESP 20; O2SAT 95
[2022-09-16] MEDS: FUROSEMIDE INJ 40 MG/4 ML VIAL IV PUSH (19:19)
[2022-09-16] MEDS: ACETAMINOPHEN 500 MG TABLET 1000 MG PO (19:34)
== END 2022-09-16 19:43 | disposition home or self-care (01) ==
PROVIDERS: Emergency Provider Emergency Medicine; PCP Internal Medicine
DX: I50.9 Heart failure, unspecified (principal); J40 Bronchitis, not specified as acute or chronic; E78.00 Pure hypercholesterolemia, unspecified; K21.9 Gastro-esophageal reflux disease without esophagitis; H26.9 Unspecified cataract; G47.33 Obstructive sleep apnea (adult) (pediatric); G89.29 Other chronic pain; M54.50 Low back pain, unspecified; F32.A Depression, unspecified; E66.01 Morbid (severe) obesity due to excess calories; Z68.36 Body mass index [BMI] 36.0-36.9, adult; Z96.653 Presence of artificial knee joint, bilateral; Z86.73 Personal history of transient ischemic attack (TIA), and cerebral infarction without residual deficits; Z98.84 Bariatric surgery status
CPT/HCPCS: 36415; 71046; 80053; 83880; 84484; 85025; 93005; 96374; 99284; A9270; J1940

== ENCOUNTER 2024-01-18 15:36 | Emergency (ER) | payer MEDICARE, SELFPAY ==
[2024-01-18] VITALS (19 sets, daily range): BP systolic 113–192; BP diastolic 54–94; PULSE 67–81; RESP 11–21; TEMP 36.6; O2SAT 97–100
--- NOTE | ~2024-01-18 | XR_ITS ---
EXAMINATION: XR chest 1V portable DATE: 01/18/2024 16:22 INDICATION: Chest pain. TECHNIQUE: A single frontal view of the chest was obtained. COMPARISON: None. FINDINGS: There is mild elevation of left hemidiaphragm. There is blunting of left lateral costophren ic angle, consistent with scarring. No pleural effusion or pneumothorax. The heart size is normal. IMPRESSION: 1. Scarring in left lateral costophrenic angle. Reviewed, dictated and finalized at location E.
--- NOTE | 2024-01-18 16:05 | ECG_ITS ---
SEE SCANNED COPY FOR CONFIRMED REPORT MTDD
--- NOTE | 2024-01-18 16:20 | ED.GENADULT ---
HPI - General Adult General Chief complaint: Unspecified Stated complaint: SOB, anxious, pain all over History of Present Illness HPI narrative: 78-year-old female presenting to the emergency department for a panic attack. Patient does arrive to the emergency department with a high level of anxiety. Patient was complaining of intermittent chest pain. Family states the patient does have a history of anxiety. Related Data Home Medications Medication Instructions Recorded Confirmed bupropion HCl 300 mg 24 hr tablet, 300 mg PO DAILY 09/26/19 12/20/20 extended release citalopram 40 mg tablet 40 mg PO DAILY 09/26/19 12/20/20 hydrochlorothiazide 50 mg tablet 50 mg PO DAILY 09/26/19 12/20/20 omeprazole 40 mg capsule,delayed 20 mg PO DAILY 09/26/19 12/20/20 release potassium chloride 20 mEq 20 meq PO DAILY 09/26/19 12/20/20 tablet,extended release(part/cryst) propranolol 60 mg capsule,24 60 mg PO DAILY 09/26/19 12/20/20 hr,extended release simvastatin 40 mg tablet 40 mg PO DAILY 09/26/19 12/20/20 clonazepam 1 mg tablet 1 mg PO HS 07/04/20 12/20/20 propranolol 120 mg capsule,24 120 mg PO DAILY 07/04/20 12/20/20 hr,extended release triamcinolone acetonide 0.1 % 1 applic topical DAILY 07/04/20 12/20/20 topical cream naproxen 375 mg tablet 375 mg PO BID 12/20/20 12/20/20 sulfamethoxazole 800 1 tablet PO BID 12/20/20 12/20/20 mg-trimethoprim 160 mg tablet Allergies Allergy/AdvReac Type Severity Reaction Status Date / Time Penicillins Allergy Unknown Rash Verified 09/16/22 15:11 chlorhexidine Allergy Rash Verified 09/16/22 15:11 Sulfa (Sulfonamide Allergy Rash Verified 09/16/22 15:11 Antibiotics) Review of Systems Review of Systems: All systems reviewed & are unremarkable except as noted in HPI and below PMFSH Past Medical History Medical History Cataracts, bilateral Maturing Chronic low back pain Managed by Dr. Brennan currently getting treated with injections Depression GERD (gastroesophageal reflux disease) Hypercholesterolemia Obesity Obstructive sleep apnea Non adherent to CPAP therapy TIA (transient ischemic attack) 2014 Surgical History Surgical History H/O cervical spine surgery 1993 with anterior cervical fusion History of cardiac catheterization Normal May 2019 History of gastric bypass In 2002 with subsequent reversal after prolonged hospitalization due to infection. 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 Primary care physician: She reports that her primary care physician Dr. Keanu Urias retired last summer. She has not yet become established with a new provider. Code status: Full code Surrogate decision maker: Aure Rodriguez (daughter) Smoking status: Never smoker Second hand tobacco smoke exposure: Yes Alcohol intake: never Substance use: never Gender identity (if verbalized by the patient): Female Sexual Orientation (if Verbalized by the Patient): Straight or Heterosexual Spiritual care concerns: No Exam Narrative: APPEARANCE: Well appearing, no pain, no distress, well-nourished. HEAD: normocephalic, atraumatic. EYES: PERRLA/EOMI, conjunctivae clear. NOSE: Normal no drainage EARS:TMS clear with good light reflex. THROAT: Pharynx clear, no exudate. NECK: Supple. No adenopathy, no masses. RESPIRATORY: Airway patent, respirations nonlabored. Clear to auscultation bilaterally, no rales, rhonchi, wheezing. CARDIOVASCULAR: Regular rate and rhythm without murmurs rubs or gallops. ABDOMINAL: Soft, nontender, nondistended, normal bowel sounds MUSCULOSKELETAL: Moves all extremities. Strength/ROM intact, No edema, No calf tenderness. NEURO: Alert. Cranial nerves II through XII intact. Good gait. Good coordination SKIN: Warm, dry. Normal Color PSYCHIATRIC: Very anxious upon arrival but improved on re-evaluation Course Vital Signs Vital signs: Vital Signs Temperature 97.8 F 01/18/24 15:41 Pulse Rate 73 01/18/24 15:41 Respiratory Rate 21 H 01/18/24 15:41 Blood Pressure 144/94 H 01/18/24 15:41 Pulse Oximetry 97 01/18/24 15:41 Oxygen Delivery Nasal Cannula 01/18/24 15:41 Oxygen Flow Rate 2 01/18/24 15:41 Temperature 97.8 F 01/18/24 18:46 Pulse Rate 67 01/18/24 20:47 Respiratory Rate 16 01/18/24 20:47 Blood Pressure 116/61 01/18/24 20:47 Pulse Oximetry 97 01/18/24 20:47 Oxygen Delivery Nasal Cannula 01/18/24 15:41 Oxygen Flow Rate 2 01/18/24 15:41 Medical Decision Making MDM Narrative Medical decision making narrative: 78-year-old female presenting to emergency department for evaluation of chest pain and anxiety. Patient's anxiety was reported treatment. Patient had negative cardiac enzymes x2. Patient was afebrile with no leukocytosis and a stable hemoglobin. Patient was comfortable the plan for discharge and close follow-up. All questions concerns were addressed. Low concern for ACS. Symptoms more consistent with a panic attack and anxiety. Differential Diagnosis Differential Diagnosis: Atypical chest pain, pneumonia, pneumothorax, ACS, anxiety, PE Vital Signs Vital Signs: Vital Signs Temperature 97.8 F 01/18/24 15:41 Pulse Rate 73 01/18/24 15:41 Respiratory Rate 21 H 01/18/24 15:41 Blood Pressure 144/94 H 01/18/24 15:41 Pulse Oximetry 97 01/18/24 15:41 Oxygen Delivery Nasal Cannula 01/18/24 15:41 Oxygen Flow Rate 2 01/18/24 15:41 Temperature 97.8 F 01/18/24 18:46 Pulse Rate 67 01/18/24 20:47 Respiratory Rate 16 01/18/24 20:47 Blood Pressure 116/61 01/18/24 20:47 Pulse Oximetry 97 01/18/24 20:47 Oxygen Delivery Nasal Cannula 01/18/24 15:41 Oxygen Flow Rate 2 01/18/24 15:41 Lab Data 01/18/24 16:15 01/18/24 16:15 Labs: Lab Results 04/19/24 04/19/24 Range/Units 16:15 19:09 WBC 6.9 (4.5-10.0) K/mm3 RBC 4.70 (4.2-5.4) M/mm3 Hgb 12.7 (12.0-15.0) g/dL Hct 37.9 (37.0-47.0) % MCV 80.6 (80-100) fl MCH 27.0 (26-34) pg MCHC 33.5 (32-36) g/dl RDW 14.7 H (11.5-14.5) % Plt Count 317 (150-375) k/mm3 MPV 9.9 (7.4-10.4) fl Immature Gran % (Auto) 0.3 (0-0.5) % Neut % (Auto) 65.1 (45.5-73.1) % Lymph % (Auto) 24.2 (18.3-44.2) % [place] % (Auto) 8.8 H (2.6-8.5) % Eos % (Auto) 0.9 (0-4.4) % Baso % (Auto) 0.7 (0.2-1.2) % Lymph # (Auto) 1.68 (0.9-3.2) K/mm3 [place] # (Auto) 0.6 (0.1-0.6) K/mm3 Eos # (Auto) 0.1 (0-0.3) K/mm3 Baso # (Auto) 0.1 (0.0-0.1) K/mm3 Abs Immat Gran (auto) 0.02 (0.00-0.031) K/mm3 Absolute Neuts (auto) 4.5 (1.3-6.7) K/mm3 Absolute Nucleated RBC 0.000 (0.0-0.012) K/mm3 Nucleated RBC % 0.0 (0.0-0.2) % Sodium 139 (137-145) mmol/L Potassium 3.3 L (3.4-5.0) mmol/L Chloride 105 (98-107) mmol/L Carbon Dioxide 26 (22-30) mmol/L Anion Gap 8 (4-12) mmol/L BUN 19 H (7-17) mg/dL Creatinine 0.90 (0.7-1.0) mg/dL Estim Creat Clear Calc 53 ml/min Estimated GFR > 60 (59 - ) Glucose 93 (65-110) mg/dL Calcium 9.6 (8.4-10.2) mg/dL Total Bilirubin 0.6 (0.2-1.3) mg/dL AST 24 (14-36) U/L ALT 15 (6-35) U/L Alkaline Phosphatase 98 (38-126) U/L Troponin I < 0.012 < 0.012 (0.000-0.034) ng/mL Total Protein 8.0 (6.3-8.2) g/dL Albumin 4.4 (3.5-5.1) g/dL Influenza A (RT-PCR) Negative (Negative) Influenza B (RT-PCR) Negative (Negative) RSV (RT-PCR) Negative (Negative) SARS-CoV-2 RNA (RT-PCR) Negative (Negative) Discharge Plan Discharge Clinical Impression: Chest pain, Anxiety Patient Disposition: Home, Self-Care Condition: Stable Instructions: Antibiotic Form, Anxiety (ED) Additional Instructions: have close follow-up with your primary care physician for additional outpatient cardiac testing. if you have any worsening symptoms then please call or return to the emergency department. Prescriptions: No Action simvastatin 40 mg tablet 40 mg PO DAILY potassium chloride 20 mEq tablet,ER particles/crystals 20 meq PO DAILY bupropion HCl 300 mg tablet extended release 24 hr 300 mg PO DAILY citalopram 40 mg tablet 40 mg PO DAILY hydrochlorothiazide 50 mg tablet 50 mg PO DAILY propranolol 60 mg capsule,extended release 24 hr 60 mg PO DAILY Rx Instructions: patient list has 60 mg daily and 120 mg daily to equal 180 mg dose omeprazole 40 mg capsule,delayed release(DR/EC) 20 mg PO DAILY naproxen 375 mg tablet 375 mg PO BID sulfamethoxazole-trimethoprim 800-160 mg tablet 1 tablet PO BID clonazepam 1 mg tablet 1 mg PO HS triamcinolone acetonide 0.1 % cream 1 applic TOPICAL DAILY Rx Instructions: apply to dry skin on legs propranolol 120 mg capsule,extended release 24 hr 120 mg PO DAILY Rx Instructions: 60 mg daily and 120 mg daily to make 180 mg dose furosemide [Lasix] 20 mg tablet 20 mg PO DAILY Qty: 5 0RF Follow-up/Referrals: Mervin,Klye Chávez MD [Primary Care Provider] - Quality HEART score for chest pain patients History: slightly suspicious ECG: normal Age: > or = to 65 years Risk factors: 1 or 2 risk factors Troponin: < or = to 1x normal limit Heart score: 3
[2024-01-18] MEDS: HYDROmorphone HCL INJ (*CRX) 1 MG/ML SYR 0.5 MG IV PUSH (16:21)
[2024-01-18] MEDS: LORazepam INJ (*CRX) 2 MG/ML VIAL 0.5 MG IV PUSH (16:22)
[2024-01-18 16:26] LABS: Basophils Absolute Auto 0.1 K/mm3 (0.0-0.1); Basophils Percent Auto 0.7 % (0.2-1.2); Eosinophils Absolute Auto 0.1 K/mm3 (0-0.3); Eosinophils Percent Auto 0.9 % (0-4.4); Hematocrit 37.9 % (37.0-47.0); Hemoglobin 12.7 g/dL (12.0-15.0); Immature Granulocyte Absolute 0.02 K/mm3 (0.00-0.031); Immature Granulocyte Percent A 0.3 % (0-0.5); Lymphocytes Absolute Auto 1.68 K/mm3 (0.9-3.2); Lymphocytes Percent Auto 24.2 % (18.3-44.2); Mean Corpuscular HGB Conc 33.5 g/dl (32-36); Mean Corpuscular Volume 80.6 fl (80-100); Mean Platelet Volume 9.9 fl (7.4-10.4); Monocytes Absolute Auto 0.6 K/mm3 (0.1-0.6); Monocytes Percent Auto 8.8 % (2.6-8.5); Neutrophils Absolute Auto 4.5 K/mm3 (1.3-6.7); Neutrophils Percent Auto 65.1 % (45.5-73.1); Platelet Count Result 317 k/mm3 (150-375); Red Cell Distribution Width 14.7 % (11.5-14.5); White Blood Count 6.9 K/mm3 (4.5-10.0)
[2024-01-18 16:35] LABS: Alanine Aminotransferase 15 U/L (6-35); Albumin Level 4.4 g/dL (3.5-5.1); Alkaline Phosphatase 98 U/L (38-126); Anion Gap 8 mmol/L (4-12); Aspartate Amino Transferase 24 U/L (14-36); Bilirubin,Total 0.6 mg/dL (0.2-1.3); Blood Urea Nitrogen 19 mg/dL (7-17); Calcium 9.6 mg/dL (8.4-10.2); Carbon Dioxide 26 mmol/L (22-30); Chloride 105 mmol/L (98-107); Estimated CRCL calculation 53 ml/min; Estimated Glomerular Filt Rate > 60; Glucose 93 mg/dL (65-110); Potassium 3.3 mmol/L (3.4-5.0); Sodium 139 mmol/L (137-145)
[2024-01-18 16:47] LABS: Troponin I < 0.012 ng/mL (0.000-0.034)
[2024-01-18 17:01] LABS: Influenza A QL RT-PCR Negative (Negative); Influenza B QL RT-PCR Negative (Negative); RSV RNA, RT-PCR Negative (Negative); SARS-CoV-2 RNA PCR Negative (Negative)
--- NOTE | 2024-01-18 18:56 | PC.NURSE ---
Pt resting with reg resp. Family at bedside states pt anxiety is improved, pt able to handle back pain.
--- NOTE | 2024-01-18 19:20 | ECG_ITS ---
SEE SCANNED COPY FOR CONFIRMED REPORT MTDD
--- NOTE | 2024-01-18 19:33 | PC.NURSE ---
this rn assumed care of patient. this rn took patient report from CAMILA Strange.
[2024-01-18 19:57] LABS: Troponin I < 0.012 ng/mL (0.000-0.034)
== END 2024-01-18 20:50 | disposition home or self-care (01) ==
PROVIDERS: Emergency Provider Emergency Medicine; PCP Internal Medicine
DX: F41.9 Anxiety disorder, unspecified (principal); R07.9 Chest pain, unspecified; Z20.822 Contact with and (suspected) exposure to COVID-19; K21.9 Gastro-esophageal reflux disease without esophagitis; E78.00 Pure hypercholesterolemia, unspecified; G47.33 Obstructive sleep apnea (adult) (pediatric); Z86.73 Personal history of transient ischemic attack (TIA), and cerebral infarction without residual deficits; Z98.1 Arthrodesis status; Z98.84 Bariatric surgery status; Z90.710 Acquired absence of both cervix and uterus; Z96.653 Presence of artificial knee joint, bilateral
CPT/HCPCS: 36415; 71045; 80053; 84484; 85025; 87637; 93005; 96374; 96375; 99284; J1170; J2060

== ENCOUNTER 2025-05-21 15:30 | Emergency (ER) | payer MEDICARE, SELFPAY ==
--- NOTE | 2025-05-21 15:39 | ECG_ITS ---
Test Date: 2025-05-21 16:00:24 Measurements Intervals [place] Rate: 67 P: 50 UT: 160 QRS: -7 QRSD: 102 T: 28 QT: 442 QTc: 467 Interpretive Statements SINUS RHYTHM LOW QRS VOLTAGE IN PRECORDIAL LEADS PATTERN CONSISTENT WITH PULMONARY DISEASE BORDERLINE ST-T WAVE ABNORMALITY- ANT/INF LEADS BASELINE ARTIFACT- I, II, III, AVR, AVL, AVF, V1-V6 BORDERLINE ECG No previous ECG available for comparison Electronically Signed On 05-21-2025 16:32:16 CDT by Jonnathan Galdamez D.O.
[2025-05-21 15:42] VITALS: BP 114/68; PULSE 68; RESP 22; TEMP 36.4; O2SAT 99
[2025-05-21 16:08] LABS: EDCOVIDSCREEN Negative (Negative); EDINFLUASCREEN Negative (Negative); EDINFLUBSCREEN Negative (Negative)
--- NOTE | 2025-05-21 16:22 | ED.SOB ---
HPI - SOB/Dyspnea General Chief Complaint: Shortness of Breath/Dyspnea Stated Complaint: SOB Source: patient and RN notes reviewed Mode of arrival: ambulatory Limitations: no limitations History of Present Illness HPI Narrative: 79-year-old female presents Express Care complaining of shortness of breath for 1 week. Patient has got worse over the last 2 days. He has a history of heart failure and chronic bronchitis. She also reports chest pain that is with inspiration. Patient has shortness of breath is worse with exertion when she is lying flat. Patient reports she has had a cough and scratchy throat. Patient denies any congestion, rhinorrhea, earache, chest pain with exertion, dizziness, lightheadedness loss consciousness, nausea vomiting, diarrhea, or any other symptoms. Per patient's daughter she had a recent echo that says she has stable heart function. Patient denies any leg swelling. Related Data Home Medications ?Medication ?Instructions ?Recorded ?Confirmed ?Last Taken ?Type bupropion HCl 300 mg 24 hr tablet, 300 mg PO DAILY 09/26/19 12/20/20 Unknown History extended release citalopram 40 mg tablet 40 mg PO DAILY 09/26/19 12/20/20 Unknown History hydrochlorothiazide 50 mg tablet 50 mg PO DAILY 09/26/19 12/20/20 Unknown History omeprazole 40 mg capsule,delayed 20 mg PO DAILY 09/26/19 12/20/20 Unknown History release potassium chloride 20 mEq 20 meq PO DAILY 09/26/19 12/20/20 Unknown History tablet,extended release(part/cryst) simvastatin 40 mg tablet 40 mg PO DAILY 09/26/19 12/20/20 Unknown History propranolol 120 mg capsule,24 120 mg PO DAILY 07/04/20 12/20/20 Unknown History hr,extended release triamcinolone acetonide 0.1 % 1 applic topical DAILY 07/04/20 12/20/20 Unknown History topical cream naproxen 375 mg tablet 375 mg PO BID 12/20/20 12/20/20 Unknown History aripiprazole 2 mg tablet mg 05/21/25 Unknown History spironolactone 25 mg tablet mg 05/21/25 Unknown History Allergies Allergy/AdvReac Type Severity Reaction Status Date / Time Penicillins Allergy Unknown Rash Verified 05/21/25 15:34 chlorhexidine Allergy Rash Verified 05/21/25 15:34 Sulfa (Sulfonamide Allergy Rash Verified 05/21/25 15:34 Antibiotics) Review of Systems Review of Systems: CONSTITUTIONAL: Denies fever, chills, or sweats. EYES: Denies visual changes, redness, or discharge. ENT: Denies rhinorrhea, congestion, or otalgia. Positive for sore throat. CARDIOVASCULAR: Denies chest pain with exertion, palpitations, or edema. RESPIRATORY: Positive for dyspnea with exertion, orthopnea, cough, and pain with inspiration. Patient denies dyspnea at rest. GASTROINTESTINAL: Denies abdominal pain, nausea, vomiting, or diarrhea. GENITOURINARY: Denies dysuria or hematuria. SKIN: Denies rash or itching. MUSCULOSKELETAL: Denies back pain, joint pain, or myalgia. NEUROLOGIC: Denies headache, numbness, or weakness. PSYCHIATRIC: Denies anxiety or depression. All other systems reviewed are negative, except as documented in HPI. [facility] Past Medical History Medical History Cataracts, bilateral Maturing Chronic low back pain Managed by Dr. Brennan currently getting treated with injections Depression GERD (gastroesophageal reflux disease) Hypercholesterolemia Obesity Obstructive sleep apnea Non adherent to CPAP therapy TIA (transient ischemic attack) 2014 Surgical History Surgical History H/O cervical spine surgery 1993 with anterior cervical fusion History of cardiac catheterization Normal May 2019 History of gastric bypass In 2002 with subsequent reversal after prolonged hospitalization due to infection. 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 She is and lives in [place]. She has 1 daughter. Primary care physician: She reports that her primary care physician Dr. Keanu Urias retired last summer. She has not yet become established with a new provider. Code status: Full code Surrogate decision maker: Aure Rodriguez (daughter) Smoking status: Never smoker Second hand tobacco smoke exposure: Yes Alcohol intake: never Substance use: never Gender identity (if verbalized by the patient): Female Sexual Orientation (if Verbalized by the Patient): Straight or Heterosexual Spiritual care concerns: No Comments At the time of my signature, I reviewed and agree with the nursing past medical, surgical, social, and family history. There is no relevant family history pertinent to the patient complaint. Exam Narrative: GENERAL: This is a well-nourished, well-developed adult, in no apparent distress. They are non ill-appearing, nontoxic appearing. HEAD: normocephalic, atraumatic. EYES: Sclera clear/white. Conjunctiva normal. Vision is grossly intact. Extraocular movements intact EARS: External ears normal, auditory canals clear and without drainage, TMs normal without perforation. Hearing grossly intact. NOSE: External nose normal with no obvious nasal discharge, nasal turbinates without redness, no rhinorrhea. THROAT: Mucous membranes moist, posterior pharynx clear, without erythema or swelling. Uvula midline. NECK: Neck supple, non-tender without lymphadenopathy, masses or thyromegaly. CARDIOVASCULAR: Regular rate and rhythm without murmurs, gallops, or rubs. RESPIRATORY: Clear to auscultation. Breath sounds equal bilaterally. No wheezes, rales, or rhonchi. Respiratory rate normal, respiratory effort nonlabored, no respiratory distress SKIN: warm, Dry, intact with no suspicious lesions or rash, good texture and turgor. NEURO: awake, alert, and oriented to person, place and time. There were no obvious focal neurologic abnormalities. EXTREMITIES: No joint tenderness, effusion. Mild nonpitting edema present to bilateral lower extremities below the knee. BACK: Nontender without deformity. No CVA tenderness. Course Course Emergency Course: Portions of this record may have been created with voice recognition software Level of Care: Express Care Visit Vital Signs Vital signs: Vital Signs Temperature 97.5 F L 05/21/25 15:42 Pulse Rate 68 05/21/25 15:42 Respiratory Rate 22 H 05/21/25 15:42 Blood Pressure 114/68 05/21/25 15:42 Pulse Oximetry 99 05/21/25 15:42 Oxygen Delivery Room Air 05/21/25 15:42 Temperature 97.5 F L 05/21/25 15:42 Pulse Rate 68 05/21/25 15:42 Respiratory Rate 22 H 05/21/25 15:42 Blood Pressure 114/68 05/21/25 15:42 Pulse Oximetry 99 05/21/25 15:42 Oxygen Delivery Room Air 05/21/25 15:42 Reviewed MDM - SOB/Dyspnea MDM Narrative Medical decision making narrative: EKG sinus rhythm without ischemic findings. EKG may suggest pulmonary disease. She does have a history of chronic bronchitis. No adventitious lung sounds auscultated. Patient does not appear to be in respiratory distress. Rapid COVID and flu were negative. Patient cough dry nonproductive. Symptoms may be related to patient's chronic lung disease or heart failure. Does not appear to be pneumonia, no evidence upper respiratory infection. Given patient's symptoms, it is recommend the patient seek a higher level care and proceed immediately to the emergency department. Patient does not want to go to the ER and would like to see if her symptoms improve deny. Patient will be signing out against medical advice. Patient has chosen to refuse further care. Risks of an incomplete evaluation and treatment were discussed with the patient, including potential for or permanent disability. Patient seems to understand these risks, but still desires to refuse further care. Patient recommended to follow up with PCP in the next possible interval. Specifically, patient was told they can go to the ED ED at any time to resume care. Differential Diagnosis Differential diagnosis: Likely acute exacerbation of chronic obstructive airways disease, congestive heart failure, community acquired pneumonia and pulmonary embolism Lab Data Attestation: I reviewed the patient's lab results. Labs: Lab Results 05/21/25 Range/Units 16:05 POC Influenza A Ag Negative (Negative) POC Influenza B Ag Negative (Negative) POC SARS CoV-2 Ag Negative (Negative) ECG Data EKG #1: Attestation: I personally reviewed and interpreted this ECG as follows: ECG completion date: 05/21/25 ECG completion time: 16:00 Prior ECG tracings: not available for review Interpretation: Abnormal EKG artifact present. EKG Interpretation: normal rate, sinus rhythm, no ectopy, no ST changes, normal QRS and normal QT Critical Care Time Critical Care Time Critical Care Time: No Discharge Plan Discharge Patient Disposition: Left Against Medical Advice Condition: Stable Patient Language: [place] Prescriptions: No Action simvastatin 40 mg tablet 40 mg PO DAILY potassium chloride 20 mEq tablet,ER particles/crystals 20 meq PO DAILY bupropion HCl 300 mg tablet extended release 24 hr 300 mg PO DAILY citalopram 40 mg tablet 40 mg PO DAILY hydrochlorothiazide 50 mg tablet 50 mg PO DAILY omeprazole 40 mg capsule,delayed release(DR/EC) 20 mg PO DAILY naproxen 375 mg tablet 375 mg PO BID spironolactone 25 mg tablet aripiprazole 2 mg tablet triamcinolone acetonide 0.1 % cream 1 applic TOPICAL DAILY Rx Instructions: apply to dry skin on legs propranolol 120 mg capsule,extended release 24 hr 120 mg PO DAILY Rx Instructions: 60 mg daily and 120 mg daily to make 180 mg dose Follow-up/Referrals: Mervin,Kyle Chávez MD [Primary Care Provider] Time of Disposition: 16:22
== END 2025-05-21 16:23 | disposition left against medical advice (07) ==
PROVIDERS: PCP Internal Medicine
DX: R06.02 Shortness of breath (principal); Z20.822 Contact with and (suspected) exposure to COVID-19; I50.9 Heart failure, unspecified; E78.00 Pure hypercholesterolemia, unspecified; Z86.73 Personal history of transient ischemic attack (TIA), and cerebral infarction without residual deficits; K21.9 Gastro-esophageal reflux disease without esophagitis; H26.9 Unspecified cataract; E66.9 Obesity, unspecified; Z68.35 Body mass index [BMI] 35.0-35.9, adult; Z98.84 Bariatric surgery status; Z96.653 Presence of artificial knee joint, bilateral
CPT/HCPCS: 87426; 87804; 93005; 99213; G0463

== ENCOUNTER 2025-09-24 19:13 | Inpatient (IN) | payer MEDICARE, SELFPAY ==
--- OUTSIDE RECORDS SUMMARY | 2024-03-27 10:00 | XMS_ITS ---
Author Organization [facility] [employer] [facility] Address [facility] [facility] [address] [place] [address] Care Team Providers Care Labels Molder Name Role Phone Mervin BENTON, Kyle Primary Care Provider UnavailRadha Milton Unavailable [phone] Social History Sex Assigned At : Social History Observation Description Sex Assigned At Female Encounters Encounter Location Date Provider Diagnosis [facility] [employer] [place] [id number] [facility] [address] [place] [address] 03/27/2024 Thena Demar Plan Of Treatment No Information Progress Notes * RACHEL ENGEL [birth year]EDOB:[birth year] (79 yo F)Acc No.[id number]:03/27/2024 Patient: Pratima RACHEL OCHOA Provider: Susu HAMILTON MD :1945 A ge:78 Y S ex:Female Date:03/27/2024 Address:[address] [place] [address] Pcp:Kyle Jeffries MD * Electronic signature of Casie Hamilton MD on 09/24/2025 at 07:16 PM CARPET REPAIRER Sign off status: Pending * Provider: Susu HAMILTON MD Date: 0 03/27/2024 Generated for Erlini ng/Fashanag/eTransmitting on: 1 11/25/2024 07:16 PM CARPET REPAIRER
--- OUTSIDE RECORDS SUMMARY | 2024-04-01 05:30 | XMS_ITS ---
Author Organization [facility] [employer] [facility] Address [facility] [facility] [address] [place] [address] Care Team Providers Care Bleach Mixer Name Role Phone Mervin BENTON, Kyle Primary Care Provider UnavailRadha Milton Unavailable [phone] Social History Sex Assigned At : Social History Observation Description Sex Assigned At Female Encounters Encounter Location Date Provider Diagnosis [facility] [employer] [place] [id number] [facility] [address] [place] [address] 04/01/2024 Thena Demar Plan Of Treatment No Information Progress Notes * RACHEL ENGEL ANNEDOB:[birth year] (79 yo F)Acc No.[id number]:04/01/2024 Patient: Pratima RACHEL OCHOA Provider: Susu HAMILTON MD :1945 A ge:78 Y S ex:Female Date:04/01/2024 Address:[address] [place] [address] Pcp:Kyle Jeffries MD * Electronic signature of Casie Hamilton MD on 09/24/2025 at 07:16 PM TURNING MACHINE SET UP OPERATOR Sign off status: Pending * Provider: Susu HAMILTON MD Date: 0 04/01/2024 Generated for Erlini ng/Fashanag/eTransmitting on: 1 11/25/2024 07:16 PM TURNING MACHINE SET UP OPERATOR
--- OUTSIDE RECORDS SUMMARY | 2024-09-04 03:00 | XMS_ITS ---
Author Organization [facility] Address [facility] [facility] [address] [place] [address] Care Team Providers Care Dean Of Faculty Name Role Phone Mervin BENTON, Kyle Primary Care Provider Radha Jenkins Unavailable [phone] Social History Sex Assigned At : Social History Observation Description Sex Assigned At Female Encounters Encounter Location Date Provider Diagnosis [facility] [employer] [place] [id number] [facility] [address] [facility] [address] [place] [address] 09/04/2024 Thena Demar Plan Of Treatment No Information Progress Notes * RACHEL ENGEL ANNEDOB:[birth year] (79 yo F)Acc No.[id number]:09/04/2024 Patient: Pratima RACHEL OCHOA Provider: Susu HAMILTON MD :1945 A ge:78 Y S ex:Female Date:09/04/2024 Address:[address] [place] [address] Pcp:Kyle Jeffries MD Billing Information: * Procedure Codes: * Electronic signature of Casie Hamitlon MD on 09/24/2025 at 07:16 PM MILL MANAGER Sign off status: Pending * Provider: Susu HAMILTON MD Date: 11/05/2023 Generated for Printi ng/Faxing/eTransmitting on: 11/25/2024 07:16 PM MILL MANAGER
[2025-09-24] VITALS (7 sets, daily range): BP systolic 107–159; BP diastolic 58–122; PULSE 63–77; RESP 16; TEMP 36.9; O2SAT 94–100
--- NOTE | ~2025-09-24 | CT_ITS ---
CT abdomen pelvis w con Clinical History: R flank and LQ pain . Comparison: None Technique: Axial images lung bases to symphysis pubis 100 mL Omnipaque 350 Coronal, sagittal reformats CT images acquired with automatic exposure control for dose reduction DLP: 1410 mGy-cm Findings: Lung bases: Scarring left side. Visualized heart and pericardium: Unremarkable. Liver: Steatosis. Intrahepatic biliary ductal dilatation after cholecystectomy Gallbladder: Removed. Spleen: Unremarkable. Pancreas: Unremarkable. Adrenal glands: Unremarkable. Kidneys: Right kidney- No hydronephrosis. No renal stones. Cyst. Left kidney- No hydronephrosis. No renal stones. Cysts. Distal esophagus/stomach: Suture line. Small bowel loops: Normal caliber and wall thickness. Colon: Diverticula. Normal caliber and wall thickness. Appendix enlarged and inflamed. Nodes: No enlarged nodes. Peritoneum: No ascites. No free air. Urinary bladder: Unremarkable. Uterus: Absent. Adnexa: No masses. Bones: No acute bony abnormality. Soft tissues: Large ventral abdominal wall hernia mesh repair. Aorta: No aneurysm or dissection. IVC: Unremarkable. Main portal vein/SMV/splenic vein: Patent. IMPRESSION: 1. Acute appendicitis. No complicating features. Reviewed, dictated and finalized at location R. K [employer] HELPER
--- OUTSIDE RECORDS SUMMARY | 2025-09-24 19:16 | XMS_ITS | Continuity of Care Document ---
Author Organization [facility], Main Office Address [address] [place] [address] Assessment Encounter Date Assessment Date Assessment LastModified by Organization Details LastModified Time 07/06/2025 07/06/2025 Labs and Imaging Visit Summary A 79-year-old female with a history of depression and tremors presented for follow-up. She reported ongoing depression with feelings of hopelessness, helplessness, and lack of energy. She had previously discontinued Abilify due to tremors but resumed taking it after approximately three weeks due to worsening mental health symptoms. She continues to experience tremors primarily affecting her right hand and mouth. Current medications include Abilify 2mg daily, Lexapro, Wellbutrin 300mg, and Trazodone for sleep. She reports that her mental health is better with Abilify despite the side effects of tremors. She has been diagnosed with tremors (not Parkinson's) by a movement disorder specialist and has an appointment scheduled for August. The patient reports passive suicidal thoughts but denies active plan or intent, identifying her dogs as protective factors. She reports adequate sleep at night but now takes daytime naps, which is unusual for her. She also reports weight loss and lack of appetite. Discussion focused on the risk-benefit assessment of increasing Abilify dosage to address depression versus potentially worsening tremors. The patient expressed concern about worsening tremors but acknowledged significant mental health struggles. Other recommendations included spending time outdoors for vitamin D exposure and considering therapy. Follow-up appointment scheduled for October 05, 2025, at 9:30 AM. Standardized Scales: PHQ9=13 GAD7=0 [email or web address] Not available 07/06/2025 23:28:59 Plan of Treatment Reminders Order Date Submit Date Provider Last Modified By Organization Details Last Modified Time Details Appointments Psychiatr ic Follow up 2025 09:30A M Ana Rosa Templeton Not available Not available Not available Lab None recorded. Referral None recorded. Procedures None recorded. Surgeries None recorded. Imaging None recorded. Medication Orders Lexapro 20 mg tablet 2024 [place] [facility], [address], [address], [place], [place], [id number], 07/06/2025 23:38:14 Wellbutri n XL 300 mg 24 hr tablet, extended release 2024 [place] [facility], [address], [address], [place], [place], [id number], 07/06/2025 23:38:14 Abilify 2 mg tablet 2024 [place] [facility], [address], [address], [place], [place], [id number], 07/06/2025 23:38:15 Patient TargetsNo targets recorded. Patient InstructionsNo instructions recorded. Reason for Referral None Reported. Problems Name Problem SNOMED Code Status Onset Date Resolution Date Notes Provider Name and Address Organization Details Recorded Time Depressive disorder 94320657 Active 2023 Elisabet haji, [facility] 4 13:55:08 Severe recurrent major depression without psychotic features 44638664 Active 2023 Ana Rosa Templeton CNM, [facility] [address], [place], [address], [facility] [place] 4 15:01:38 Recurrent major depressive episodes, mild 366179072 Active 2023 [facility], [facility] [address], [place], [address], [facility] [place] 5 13:46:42 Insomnia 867150921 Active 2023 [facility], [facility] [address], [place], [address], [facility] [place] 4 12:10:20 Generalized anxiety disorder 42909668 Active 2023 Ana Rosa Templeton CNM, [facility] [address], [place], [address], [facility] [place] 4 12:11:23 Abnormal weight gain 374631038 Active 2023 Ana Rosa Templeton CNM, [facility] [address], [place], [address], [facility] [place] 4 12:12:26 Moderate recurrent major depression 50065631 Active 2024 Ana Rosa Templeton CNM, [facility] [address], [place], [address], [facility] [place] 5 13:45:54 Mild recurrent major depression 22301506 Active 2024 Ana Rosa Templeton CNM, [facility] [address], [place], [address], [facility] [place] 5 15:54:04 Abnormal movement 776897527 Active 2024 Ana Rosa Templeton CNM, [facility] [address], [place], [address], [facility] [place] 5 23:31:46 Involuntary movement 557642011 Active 2024 Ana Rosa Templeton CNM, [facility] [address], [place], [address], [facility] [place] 5 23:32:03 Notes:Some problems listed i n Document: #[id number] could not be added to this patient's chart. Please review this document and add these problems to the patient's chart manually as needed. Problem Notes None recorded. Procedures Surgical History Date Name Laterality Status Provider Name and Address Organization Details Recorded Time 10/01/19 25 Colonoscopy completed Jaylyn Toure [facility] 04/01/2025 12:57:30 10/01/19 24 procedure on back completed Jaylyngililan Toure [facility] 04/01/2025 12:30:33 10/01/19 22 [facility] 12:30:04 10/01/19 18 procedure on back completed Jaylyn Toure [facility] 04/01/2025 12:30:45 10/01/19 13 [facility] 12:27:06 10/01/19 11 [facility] 12:26:47 10/01/19 10 hernia repair completed [facility] 04/01/2025 12:29:07 10/01/19 01 Gstr rstcv px shrt junior-en-y completed [facility] 04/01/2025 12:28:43 10/01/18 83 [facility] 13:01:45 Imaging Results None recorded. Procedure Notes None recorded. Medical Equipment None Reported. Allergies Allergen ID Allergen Name Allergen Category Reaction Reaction Severity Criticality Documentation Date Start Date Code Code System Note Provider Name and Address Organization Details Recorded Time 1402 Product containin g penicilli n (product) medicatio n rash Not available Not available 08/26/20242017 50597 8001 SNOMED Jaylyn Toure [facility] 12:22:09 2345 chlorhexi dine medicatio n rash Not available high 04/01/2025 2358 RxNorm Jaylyn Toure [facility] 12:22:04 2346 sulfameth oxazole / trimethop rim medicatio n itching Not available low 04/01/20252020 66915 RxNorm Jaylyn Toure [facility] 12:22:11 2347 Substance with sulfonami de structure and antibacte rial mechanism of action (substanc e) medicatio n itching Not available low 04/01/20252021 90275 8003 SNOMED Jaylyn Toure [facility] 12:22:13 Medications Name Sig Start Date Stop Date Status Note LastModified by Organization Details LastModified Time propranolol ER 160 mg capsule,24 hr,extended release 04/01 completed Not Available Not Available Not Available naproxen 375 mg tablet active Not Available Not Available Not Available citalopram 40 mg tablet 04/01 completed Not Available Not Available Not Available trazodone 50 mg tablet TAKE 1 TABLET BY MOUTH DAILY 04/01 completed Not Available Not Available Not Available azithromyci n 250 mg tablet TAKE 2 TABLETS BY MOUTH FOR 1 DAY THEN TAKE 1 TABLET BY MOUTH DAILY FOR 4 DAYS 04/01 completed Not Available Not Available Not Available hydrochloro thiazide 50 mg tablet Take 1 tablet(s) every day by oral route. active Not Available Not Available No t Available hydrocodone 5 mg-acetamin ophen 325 mg tablet TAKE 1 TABLET BY MOUTH TWICE DAILY FOR 5 DAYS NEEDED 04/01 completed Not Available Not Available Not Available prazosin 1 mg capsule TAKE 1 CAPSULE BY MOUTH EVERY DAY AT BEDTIME 04/01 completed Not Available Not Available Not Available clonazepam 0.5 mg tablet TAKE 1/2 TABLET BY MOUTH DAILY 04/01 completed Not Available Not Available Not Available clonazepam 1 mg tablet 04/01 completed Not Available Not Available Not Available omeprazole 40 mg capsule,del ayed release active Not Available Not Available Not Available potassium chloride 10 mEq/100mL in sterile water intravenous piggyback Inject by intraveno us route. 04/01 completed Not Available Not Available Not Available potassium chloride ER 20 mEq tablet,exte nded release(par t/cryst) active Not Available Not Available Not Available trazodone 100 mg tablet TAKE 1 TABLET BY MOUTH AT BEDTIME 2024 active Not Available Not Available Not Avai lable simvastatin 20 mg tablet Take 1 tablet every day by oral route. 04/01 completed Not Available Not Available Not Available gabapentin 300 mg capsule Take 1 capsule 3 times a day by oral route. active Not Available Not Available No t Available furosemide 20 mg tablet Take 1 tablet every day by oral route. 04/01 completed Not Available Not Available Not Available propranolol ER 120 mg capsule,24 hr,extended release 04/01 completed Not Available Not Available Not Available methylpredn isolone 4 mg tablets in a dose pack FOLLOW PACKAGE DIRECTION S 04/01 completed Not Available Not Available Not Available ondansetron 4 mg disintegrat ing tablet 04/01 completed Not Available Not Available Not Available Lexapro 20 mg tablet Take 1 tablet every day by oral route. 2024 active Not Available Not Available Not Avai lable Restasis 0.05 % eye drops in a dropperette INSTILL 1 DROP INTO AFFECTED EYE(S) BY OPHTHALMI C ROUTE EVERY 12 HOURS active Not Available Not Available No t Available bupropion HCl XL 300 mg 24 hr tablet, extended release TAKE 1 TABLET BY MOUTH DAILY 2024 active Not Available Not Available Not Avai lable nitrofurant oin monohydrate /macrocryst als 100 mg capsule 04/01 completed Not Available Not Available Not Available aspirin active Not Available Not Avail able Not Available omeprazole 04/01 completed Not Available Not Available Not Available propranolol 04/01 completed Not Available Not Available Not Available naproxen 04/01 completed Not Available Not Available Not Available clonazepam 04/01 completed Not Available Not Available Not Available topiramate active Not Available Not Av ailable Not Available aripiprazol e 2 mg tablet TAKE 1 TABLET BY MOUTH DAILY 2024 active Not Available Not Available Not Avai lable FeroSul 325 mg (65 mg iron) tablet TAKE 1 TABLET BY MOUTH TWICE DAILY active Not Available Not Available No t Available GaviLyte-G 236 gram-22.74 gram-6.74 gram-5.86 gram oral solution FOLLOW PRESCRIBE R DIRECTION S 04/01 completed Not Available Not Available Not Available bupropion HCl 150 mg tablet,12 hr sustained-r elease(smok ing deterrent) Take 1 tablet twice a day by oral route. 04/01 completed Not Available Not Available Not Available Mitigo (PF) 10 mg/mL injection solution Take by injection route. active Not Available Not Available No t Available Lagevrio 200 mg capsule (EUA) TAKE 4 CAPSULES BY MOUTH EVERY 12 HOURS FOR 5 DAYS 04/01 completed Not Available Not Available Not Available Vitals Date Recorded Body height Body mass index (BMI) Body weight Heart rate Systolic And Diastolic Provider Name and Address Organization Details Last Updated DateTime 07/06/2025 170.18 cm 34 kg/m2 01309.54 g 70 /min 123/77 mm[Hg] Jaylyn Toure [facility] 12:31:57 Social History Question Answer Notes LastModified by [employer] for [employer] Details LastModified Time Tobacco Smoking Status Never Smoker Elisabet Sumner [facility] 08/26/2024 14:05:28 What Is Your Level Of Caffeine Consumption? Moderate [email or web address] Information not available 08/26/2024 Are There Any Guns Present In Your Home? No [email or web address] Information not available 08/26/2024 Do You Feel Safe In Your Home? Yes [email or web address] Information not available 08/26/2024 Sex: Unknown Functional Status Question Answer Note LastModified by [employer] for [employer] Details LastModified Time Do you use any illicit or recreational drugs? No [email or web address] Information not available 08/26/2024 Do you or have you ever used any other forms of tobacco or nicotine? No [email or web address] Information not available 08/26/2024 What is your level of alcohol consumption? None [email or web address] Information not available 08/26/2024 What is your exercise level? None Information not available 08/26/2024 Mental Status Question Answer Note LastModified by Organization D etails LastModified Time Do you feel stressed (tense, restless, nervous, or anxious, or unable to sleep at night)? [id number] Information not available 08/26/2024 Family History Relationship Description Onset Age of this Age Resolved Age Notes LastModified by Organization Details LastModified Time Mother Intracranial aneurysm Not available 2023 14:04:32 Medical History Condition Response Anxiety Disorder Y Drug/Latex Allergies/Reactions Y High Cholesterol Y Hypertension Y GI Problems Y Depression Y Neurologic/Epilepsy Y Gynecological History Statement/Question Response Date of Last Pap Smear Current Control Method Hysterectom y Date of LMP 10/01/1982 Obstetrics History GPAL:G 1 P 1 0 0 1 Type Value Full Term 1 Living 1 Total 1 Past Encounters Encounter ID Performer Location Encounter Start Date Encounter Closed Date Diagnosis/Indication Diagnosis SNOMED-CT Code Diagnosis ICD10 Code Diagnosis IMO Codes Diagnosis Note [id number] Ana Rosa Templeton CNM, [facility]- Main Office [address] [place] [address] 07/06/2025 12:26:25 07/09/2025 00:44:08 Moderate recurrent major depression 84448713 F33.1 [id number] I discussed with the patient her ongoing depression symptoms including feelings of hopelessne ss, helplessne ss, and lack of energy. She reports passive suicidal thoughts but denies active plan or intent, identifyin g her dogs as protective factors. We discussed the risk-benef it assessment of increasing her Abilify dosage from 2mg to 5mg to address her depression symptoms versus potentiall y worsening her tremors. The patient expressed concern about worsening tremors but acknowledg ed significan t mental health struggles. Continue current medication s: Abilify 2mg daily, Lexapro, Wellbutrin 300mg, and Trazodone for sleepNo medication changes at this time due to concerns about worsening tremorsRec ommended spending time outdoors (20 minutes on porch) for vitamin D exposureSu ggested considerin g therapy to address depression and loneliness Discussed importance of eating regularly with small, frequent mealsFollo w-up appointmen t scheduled for October 05, 2025, at 9:30 AMPatient advised she can call for earlier appointmen t if [id number] minutes spent face to face, an additional 10 minutes spent reviewing chart, documentin g postvisit and sending out RX Involuntary movement 267 739053 R25.9 51412 I discussed with the patient her ongoing tremors primarily affecting her right hand and mouth. These tremors appear to be medication -induced from Abilify. The patient previously discontinu ed Abilify due to tremors but resumed taking it after approximat darleen three weeks due to worsening mental health symptoms. She reports that her mental health is better with Abilify despite the side effects of tremors. She has been diagnosed with tremors (not Parkinson' s) by a movement disorder specialist .Continue current Abilify dosage of 2mg dailyNo increase in Abilify dosage at this time due to concerns about worsening tremorsWil l research potential medication s that could help manage the tremorsPat ient to follow up with movement disorder specialist in August as scheduledW ill reassess at next appointmen t based on movement disorder specialist recommenda tions Health Concerns Section Related Observation LastModified by Organization Detai ls LastModified Time None Recorded Concern Status LastModified by Organization Details LastModified Time None Recorded Payers Encounter Date Sequence Insurance Name Policy Number Policy Basilio Covered Member ID Basilio Member ID Guarantor Name 07/06/2025 1 [facility] [id number] Janette Wu [id number] Adalgisa Wu Notes Date Note Type Note Provider Name and Address Organization Details Recorded Time 07/06/2025 text/html History of present illness Adalgisa Wu is a 79-year-old female presenting for follow-up. She reports ongoing depression with feelings of hopelessness and helplessness. She states that she has no energy at all and can't get off the couch on many days. She describes feeling very depressed again with weekends being particularly difficult due to less social interaction outside of hindu. She reports having passive suicidal thoughts but denies having a specific plan or intent to act on these thoughts, stating I wouldn't do it. She mentions her dogs as protective factors, saying she needs to take care of them. She previously discontinued Abilify due to tremors but resumed taking it after approximately three weeks because her mental health deteriorated without it. The tremors have continued, primarily affecting her right hand and mouth. She reports that her mental health is better with the medication than without it, despite the side effects. She expresses concerns about loneliness, noting that her significant other plans to continue working for another two years, which is frustrating to her given her age. She reports a lack of motivation for household tasks, stating I don't have any desire to clean my house. 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 She reports that her sleep is pretty good but mentions that she now takes naps during the day, which is unusual for her. She typically goes to bed around 9-10 PM and wakes between 6-7 AM. She also mentions having lost weight recently and states that she doesn't care whether she eats or not. She sees a movement disorder specialist who has diagnosed her with tremors (not Parkinson's disease) but notes that her condition could potentially develop into Parkinson's disease. Her next appointment with the movement disorder specialist is scheduled for August. Past Medical History Illness, Injuries, Operations, and Treatment: Tremors (not Parkinson's disease), back pain Previous Psychiatric or Mental Health Treatment: Not provided Previous Psychiatric or Mental Health Hospitalization: Not provided Medication History 1. Abilify 2mg daily Temporarily discontinued due to tremors but restarted after approximately three weeks Currently taking due to mental health benefits despite side effects of tremors Effectiveness: Described as the lema on top that significantly improved her mental health 2. Lexapro (dosage not specified) Currently taking Effectiveness: 3. Wellbutrin 300mg Currently taking Effectiveness: 4. Trazodone (dosage not specified) Currently taking for sleep Effectiveness: Reported as effective for sleep Ana Rosa Templeton, [facility], [facility] [address], [place], [address], [facility] [place] 07/06/2025 23:40:05 OBGyn Episode No OBEpisode recorded.
--- OUTSIDE RECORDS SUMMARY | 2025-09-24 19:16 | XMS_ITS | Encounter Summary ---
Author Organization [employer] Address [address] [place] [address] Care Team Providers Care Insurance Agency Manager Name Role Phone Unavailable Primary Care Provider Unavailabl e Encounter Details Date Type Department Care Team (Late st Contact Info) Description 03/04/2024 Telephone [employer] [facility] [id number] [facility] [place] [address] [place] [address] [facility] [address] [place] [address] Social History Tobacco Use Types Packs/Day Years Used Date Smoking Tobacco: Never Smokeless Tobacco: Never Alcohol Use Standard Drinks/Week Comments No 0 (1 standard drink = 0.6 oz pur e alcohol) Comments Unknown Sex and Gender Information Value Date Recorded Sex Assigned at Not on file Legal Sex Female 10:28 PM CDT Gender Identity Not on file Sexual Orientation Not on file documented as of this encounter Miscellaneous Notes * Telephone Encounter - Tulio Copeland - 03/07/2024 12:58 PM CDT Phone number [phone] in patient profile not in service . * Telephone Encounter - Margot Jaramillo RN - 03/04/2024 1:27 PM CDT Patient left voicemail on procedural line needing to schedule new patient visit. Message forwarded to clinic documented in this encounter Plan of Treatment Not on file documented as of this encounter Visit Diagnoses Not on filedocumented in this encounter
--- OUTSIDE RECORDS SUMMARY | 2025-09-24 19:16 | XMS_ITS | Clinical Summary ---
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 Gender Identity Not on file Sexual Orientation Not on file Plan of Treatment Health Maintenance Due Date Last Done Comments Hepatitis C 1963 DTaP, Tdap and Td Vaccines ( 1 - Tdap) 1966 Pneumococcal Vaccine: 50+ Years (1 of 1 - PCV) 1997 Zoster Vaccines (1 of 2) 1997 Annual Medicare Wellness Visit 2012 Dexa Scan (General) 2012 RSV Immunization or 60+ Years (1 - 1-dose 75+ series) 2022 COVID-19 Vaccine (3 - 2024-2 6 season) 2025 12/03/2020, 11/12/2020 Influenza Adult (#1) 2025 Hepatitis A Vaccines Aged Out No long er eligible based on patient's age to complete this topic Meningococcal B Vaccine Aged Out No l onger eligible based on patient's age to complete this topic Meningococcal Vaccine Aged Out No brett linda eligible based on patient's age to complete this topic RSV Immunizations Under 20 Months Aged Out No longer eligible b ased on patient's age to complete this topic Insurance [facility] MEDICARE Care Teams Helicopter Pilot Instructor Relationship Specialty Start Date End Date None, Provider, PCP - General 10/07/21
--- OUTSIDE RECORDS SUMMARY | 2025-09-24 19:16 | XMS_ITS | Clinical Summary ---
Author Organization 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 Gender Identity Not on file Sexual Orientation Not on file Plan of Treatment Health Maintenance Due Date Last Done Comments Hepatitis C Virus (HCV) Screening 1945 Pneumococcal Immunization (5 0+ years) (1 of 1 - PCV) 1997 Zoster Immunization (1 of 2) 1997 Respiratory Syncytial Virus (RSV) Immunization (Adult) (1 - 1-dose 75+ series) 2022 Influenza Immunization (#1) 06/01/202507/01, 07/17/2013 SARS-COV-2 Immunization ( - season) 2025 DTaP/Tdap/Td Immunization Discontinued 07/17/2013 TdaP Immunization Completed 07/17/2013 Hepatitis B Immunization Aged Out No longer eligible based on patient's age to complete this topic Human Papillomavirus (HPV) Immunization Aged Out No longer eligible based on patient's age to complete this topic Meningococcal Immunization (ACWY) Aged Out No longer eligible based on patient's age to complete this topic Rotavirus Immunization Aged Out No lo nger eligible based on patient's age to complete this topic
--- OUTSIDE RECORDS SUMMARY | 2025-09-24 19:17 | XMS_ITS | Data Portability ---
Author Organization [facility], Telehealth (patients home) Address [address] [place] [address] Assessment Encounter Date Assessment Date Assessment LastModified by Organization Details LastModified Time 09/09/2024 09/09/2024 Met with Adalgisa mann to follow-up on her severe recurrent MDD. Afua is feeling much better PHQ 9 = 3 RONAL-7 = 2 Not available 09/09/2024 21:36:21 10/08/2024 10/08/2024 Met with Adalgisa mann to follow-up on her MDD and insomnia PHQ-9 = 3 RONAL-7 = 3 [email or web address] Not available 10/08/2024 18:03:16 12/31/2024 12/31/2024 Met with Adalgisa mann for follow up on her recurrent mdd, abnormal weight gain and insomnia PHQ9=5 GAD7-0 [email or web address] Not available 12/31/2024 20:50:23 04/01/2025 04/01/2025 Visit Summary A female patient with psychiatric history was seen today for medication management follow-up. She reports good medication adherence to her current regimen of Abilify 2mg, Wellbutrin 300mg, Lexapro 20mg, and trazodone for sleep. She reports significant improvement in her condition, with stable mood, good sleep, and stable weight. Her only complaint is significant dry mouth, though this was not definitively linked to any specific medication. She also mentions having balance problems but notes these are not new. The patient appears to be responding well to the current medication regimen with no reported side effects other than dry mouth. She denies any symptoms of depression, anxiety, psychosis, or suicidal/homicidal ideation. The treatment plan involves continuing the current medication regimen without changes, as the patient reports being satisfied with her current state. A follow-up appointment was scheduled for July 06, 2025, at 11:30 AM. Standardized Scales: PHQ9=5 [email or web address] Not available 04/01/2025 13:11:40 07/06/2025 07/06/2025 Labs and Imaging Visit Summary [...] at 9:30 AM. Standardized Scales: PHQ9=13 GAD7=0 Not available 07/06/2025 23:28:59 Plan of Treatment Reminders Order Date Submit Date Provider Last Modified By Organization Details Last Modified Time Details Appointments Psychiatr ic Follow up 2025 09:30A M Ana Rosa Templeton Not available Not available Not available Lab None recorded. Referral None recorded. Procedures None recorded. Surgeries None recorded. Imaging None recorded. Medication Orders [facility] 20 [facility], [address], [facility] [address], [place], [place], [id number], 07/06/2025 23:38:14 Wellbutri n XL 300 mg 24 hr tablet, extended release 2024 025 [facility], [address], [address], [place], [place], [id number], 07/06/2025 23:38:14 Abilify 2 mg tablet 2024 025 [facility], [address], [address], [place], [place], [id number], 07/06/2025 23:38:15 Abilify 2 mg tablet 2024 025 [facility], [address], [address], [place], [place], [id number], 04/01/2025 13:06:00 Wellbutri n XL 300 mg 24 hr tablet, extended release 2024 025 [facility], [address], [address], [place], [place], [id number], 04/01/2025 13:06:02 Lexapro 20 mg tablet 2024 025 [facility], [address], [address], [place], [place], [id number], 04/01/2025 13:06:00 trazodone 100 mg tablet 2024 025 [facility], [address], [address], [place], [place], [id number], 04/01/2025 13:06:01 Abilify 2 mg tablet 2024 025 [facility], [address], [address], [place], [place], [id number], 12/31/2024 20:55:16 Wellbutri n XL 300 mg 24 hr tablet, extended release 2024 025 [facility], [address], [address], [place], [place], [id number], 12/31/2024 20:55:18 Lexapro 20 mg tablet 2024 025 [facility], [address], [address], [place], [place], [id number], 12/31/2024 20:55:16 Abilify 2 mg tablet 2024 025 [facility], [address], [address], [place], [place], [id number], 10/08/2024 18:12:29 Wellbutri n XL 300 mg 24 hr tablet, extended release 2024 025 [facility], [address], [address], [place], [place], [id number], 10/08/2024 18:12:29 Lexapro 20 mg tablet 2024 025 [facility], [address], [address], [place], [place], [id number], 10/08/2024 18:12:30 trazodone 50 mg tablet 2024 025 [email or web address] [facility], [address], [address], [place], [place], [id number], 04/01/2025 12:59:49 Abilify 2 mg tablet 2023 024 [facility], [address], [address], [place], [place], [id number], 09/09/2024 12:10:58 Wellbutri n XL 300 mg 24 hr tablet, extended release 2023 [facility], [address] [place] [address], [address], [place], [place], [id number], 09/09/2024 12:10:59 Lexapro 20 mg tablet 2023 024 [facility], [address], [address], [place], [place], [id number], 09/09/2024 12:10:59 trazodone 50 mg tablet 2023 024 [email or web address] [facility], [address], [address], [place], [place], [id number], 04/01/2025 12:59:49 Patient TargetsNo targets recorded. Patient Instructions Encounter Date Encounter Id Patient Instructions Last Modified By Organization Details Last Modified Time 09/09/2024 [id number] depression treatment: care instructions [email or web address] Not available 09/09/2024 12:10:56 insomnia: care instructions [email or web address] Not available 09/09/2024 12:10:56 10/08/2024 [id number] insomnia: care instructions [email or web address] Not available 10/08/2024 18:12:28 12/31/2024 [id number] depression treatment: care instructions [email or web address] Not available 12/31/2024 16:06:22 insomnia: care instructions [email or web address] Not available 12/31/2024 16:06:22 04/01/2025 [id number] depression treatment: care instructions [email or web address] Not available 04/01/2025 13:05:59 Reason for Referral None Reported. Problems Name Problem SNOMED Code Status Onset Date Resolution Date Notes Provider Name and Address Organization Details Recorded Time Depressive disorder 64863172 Active [address] [facility] 13:55:08 Severe recurrent major depression without psychotic features 24359250 Active 2023 Ana Rosa Templeton CNM, PMHNP-BC [address], [place], [address], [facility] 11/26/202 4 15:01:38 Recurrent major depressive episodes, mild 610867595 Active 2023 Ana Rosa Templeton CNM, [facility] [address], [place], [address], [facility] 5 13:46:42 Insomnia 745965237 Active 2023 Ana Rosa Templeton CNM, [facility]- [address], [place], [address], [facility] 4 12:10:20 Generalized anxiety disorder 32885449 Active 2023 Ana Rosa Templeton CNM, [facility] [address], [place], [address], [facility] 4 12:11:23 Abnormal weight gain 445139359 Active 2023 Ana Rosa Templeton CNM, [facility] [address], [place], [address] 4 12:12:26 Moderate recurrent major depression 52568858 Active 2024 Ana Rosa Templeton CNM, [facility] [address], [place], [address], [facility] 5 13:45:54 Mild recurrent major depression 84943181 Active 2024 Ana Rosa Templeton CNM, [facility]- [address], [place], [address], [facility] 5 15:54:04 Abnormal movement 623805579 Active 2024 Ana Rosa Templeton CNM, [facility] [address], [place], [address], [facility] 5 23:31:46 Involuntary movement 994709260 Active 2024 Ana Rosa Templeton CNM, [facility]- [address], [place], [address], [facility] 23:32:03 Notes:Some problems listed i n Document: #[id number] could not be added to this patient's chart. Please review this document and add these problems to the patient's chart manually as needed. Problem Notes None recorded. Procedures Surgical History Date Name Laterality Status Provider Name and Address Organization Details Recorded Time 10/01/19 25 Colonoscopy completed Jaylyngillian Toure [facility] 04/01/2025 12:57:30 10/01/19 24 procedure on back completed Jaylyn Toure [facility] 04/01/2025 12:30:33 10/01/19 22 [facility] 12:30:04 10/01/19 18 procedure on back completed Jaylyn [facility] 04/01/2025 12:30:45 10/01/19 13 total knee replacement completed Jaylyngillian Toure [facility] 04/01/2025 12:27:06 10/01/19 11 total knee replacement completed Jaylyngillian Toure [facility] 04/01/2025 12:26:47 10/01/19 10 hernia repair completed Jaylyn [facility] 04/01/2025 12:29:07 10/01/19 01 Gstr rstcv px shrt junior-en-y completed [facility] 04/01/2025 12:28:43 10/01/18 83 Hysteroscopy completed Jaylyngillian Toure [facility] 04/01/2025 13:01:45 Imaging Results None recorded. Procedure Notes None recorded. Medical Equipment None Reported. Allergies Allergen ID Allergen Name Allergen Category Reaction Reaction Severity Criticality Documentation Date Start Date Code Code System Note Provider Name and Address Organization Details Recorded Time 1402 Product containin g penicilli n (product) medicatio n rash Not available Not available 08/26/20242017 35950 8001 SNOMED Jaylyngillian Toure [facility] 12:22:09 2345 chlorhexi dine medicatio n rash Not available [facility] 04/01/2025 2358 RxNorm Jaylyn Toure [facility] 12:22:04 2346 sulfameth oxazole / trimethop rim medicatio n itching Not available [facility] 04/01/20252020 40396 RxNorm Jaylyn Toure [facility] 12:22:11 2347 Substance with sulfonami de structure and antibacte rial mechanism of action (substanc e) medicatio n itching Not available [facility] 04/01/20252021 14838 8003 SNOMED Jaylyn Toure [facility] 12:22:13 Medications Name Sig Start Date [...] and Address Organization Details Last Updated DateTime 10/08/2024 170.18 cm 36.5 kg/m2 708729.0 2 g 67 /min 126/84 mm[Hg] Elisabet Sumner [facility] 10/08/2024 17:20:50 Date Recorded Body height Body mass index (BMI) Body weight Heart rate Systolic And Diastolic Provider Name and Address Organization Details Last Updated DateTime 12/31/2024 170.18 cm 36 kg/m2 507442.2 5 g 66 /min 116/71 mm[Hg] Elisabet Sumner [facility] 12/31/2024 15:49:29 Date Recorded Body height Body mass index (BMI) Body weight Heart rate Systolic And Diastolic Provider Name and Address Organization Details Last Updated DateTime 04/01/2025 170.18 cm 36 kg/m2 913452.8 1 g 71 /min 100/63 mm[Hg] Jaylyn Toure [facility] 12:21:53 Date Recorded Body height Body mass index (BMI) Body weight Heart rate Systolic And Diastolic Provider Name and Address Organization Details Last Updated DateTime 07/06/2025 170.18 cm 34 kg/m2 27065.54 g 70 /min 123/77 mm[Hg] Jaylyn Toure [facility] 12:31:57 Date Recorded Body height Body mass index (BMI) Body weight Heart rate Systolic And Diastolic Provider Name and Address Organization Details Last Updated DateTime 09/09/2024 170.18 cm 35.7 kg/m2 437211.0 6 g 69 /min 128/59 mm[Hg] Elisabet Sumner [facility] 09/09/2024 11:19:17 Social History Question Answer Notes LastModified by Organizat ion Details LastModified Time Tobacco Smoking Status [facility] 08/26/20[facility] 14:05:28 What Is Your Level Of Caffeine Consumption? Moderate [email or web address] Information not available 08/26/2024 Are There Any Guns Present In Your Home? No Information not available 08/26/2024 Do You Feel Safe In Your Home? Yes [email or web address] Information not available 08/26/2024 Sex: Unknown Functional Status Question Answer Note LastModified by Organizat ion Details LastModified Time Do you use any illicit or recreational drugs? No Information not available 08/26/2024 Do you or have you ever used any other forms of tobacco or nicotine? No [email or web address] Information not available 08/26/2024 What is your level of alcohol consumption? None [email or web address] Information not available 08/26/2024 What is your exercise level? None [email or web address] Information not available 08/26/2024 Mental Status Question Answer Note LastModified by Organization D etails LastModified Time Do you feel stressed (tense, restless, nervous, or anxious, or unable to sleep at night)? [id number] [email or web address] Information not available 08/26/2024 Family History Relationship Description Onset Age of this Age Resolved Age Notes LastModified by Organization Details LastModified Time Mother Intracranial aneurysm [email or web address] Not available 2023 14:04:32 Medical History Condition Response Anxiety Disorder Y Drug/Latex Allergies/Reactions Y High Cholesterol Y Hypertension Y Depression Y GI Problems Y Neurologic/Epilepsy Y Gynecological History Statement/Question Response Date of Last Pap Smear Current Control Method Hysterectom y Date of LMP 10/01/1982 Obstetrics History GPAL:G 1 P 1 0 0 1 Type Value Full Term 1 Living 1 Total 1 Past Encounters Encounter ID Performer Location Encounter Start Date Encounter Closed Date Diagnosis/Indication Diagnosis SNOMED-CT Code Diagnosis ICD10 Code Diagnosis IMO Codes Diagnosis Note [id number] Ana Rosa Templeton CNM, [facility]- Main Office [address] [place] [address] 08/26/2024 13:51:00 08/27/2024 12:17:54 Severe recurrent major depression without psychotic features 50635360 F33.2 start abilify 2mg dailyDiscu ssed risks and benefits ofAbilifyy continue Wellbutrin XL 300mg dailyConti nue Lexapro 20mg dailyconti nue Trazodone 50mg dailyconti nue therapy with Analy at [facility] [id number] Ana Rosa Templeton CNM, [facility] Main Office [address] [facility] [place] [address] 09/09/2024 11:12:22 09/10/2024 10:47:29 Recurrent major depressive episodes, mild 287396610 F33.0 continue abilify 2mg dailyconti nue Wellbutrin XL 300mg dailyConti nue Lexapro 20mg dailyconti nue Trazodone 50mg dailyconti nue [facility] to follow up on weight gain Insomnia 752238653 G47.0 0 continue trazodone 50mg at bedtime Abnormal weight gain 161 297324 R63.5 13 lb wt gain over the past 3 weeks.Enco urage exercise. Increase water intake. Will reevaluate at next visit. [id number] Ana Rosa Templeton CNM, [facility] Main Office [address] [place] [address] 10/08/2024 17:13:36 10/09/2024 10:27:03 Insomnia 387094490 G47.00 continue trazodone 50mg at bedtime Abnormal weight gain 161 431113 R63.5 5 lb wt gain over the past 4 weeks- also over the holiday season.Enc ourage exercise. Increase water intake. Limit empty calories. Increase fruits and vegetables Recurrent major depressive episodes, mild 916279142 F33.0 continue abilify 2mg dailyconti nue Wellbutrin XL 300mg dailyConti nue Lexapro 20mg dailyconti nue Trazodone 50mg dailyconti nue therapy with Analy at [facility] [id number] Ana Rosa Templeton CNM, [facility] Main Office [address] [facility] [place] [address] 12/31/2024 15:46:30 01/02/2025 10:57:29 Recurrent major depressive episodes, mild 795233030 F33.0 continue abilify 2mg dailyconti nue Wellbutrin XL 300mg dailyConti nue Lexapro 20mg dailyconti nue Trazodone 100mg daily increase by movement disorder doctorno longer doing therapy Insomnia 704328586 G47.0 0 continue trazodone 100mg at bedtime Abnormal weight gain 161 484642 R63.5 3 pound weight loss since last visit. [id number] Ana Rosa Templeton CNM, [facility] Main Office [address] [place] [address] 04/01/2025 12:01:12 04/02/2025 06:22:23 Moderate recurrent major depression 74537519 F33.1 Recurrent major depressive episodes, mild 466098339 F33.0 The patient is doing well on her current medication regimen. She reports good mood, stable weight, and good sleep. She denies any symptoms of depression , anxiety, or psychosis. She reports no side effects from her medication s except for significan t dry mouth, though this was not definitive ly linked to any specific medication in her regimen. We discussed her current symptoms and medication effects, and she expressed satisfacti on with her current treatment. Continue Abilify 2mg daily Continue Wellbutrin 300mg daily Continue Lexapro 20mg daily Continue trazodone for sleep Encouraged continued hydration for dry mouth symptoms Follow up in 3 months (July 06, 2025, at 11:30 AM) Insomnia 459153080 G47.0 0 continue trazodone 100mg at bedtime [id number] Ana Rosa Templeton CNM, [facility] Main Office [address] [place] [address] 07/06/2025 12:26:25 07/09/2025 00:44:08 Moderate recurrent major depression 62611906 F33.1 8222592 I discussed with the patient her ongoing [...] can call for earlier appointmen t if [email or web address] minutes spent face to face, an additional 10 minutes spent reviewing chart, documentin g postvisit and sending out RX Involuntary movement 267 978527 R25.9 28387 I discussed with the patient her ongoing [...] by Organization Details LastModified Time None Recorded Advance Directives Directive None Recorded Payers Insurance Date Sequence Insurance Name Policy Number Policy Basilio Covered Member ID Basilio Member ID Guarantor Name 07/09/2025 1 [facility] [id number] Janette Wu [id number] Adalgisa Wu Notes Date Note Type Note Provider Name and Address Organization Details Recorded Time 09/09/2024 text/html Met with Adalgisa mann to follow-up on her severe recurrent MDD. And evaluate her response to Abilify. Adalgisa is doing well, states her mood to be okay. Feelings of worthlessness, hopelessness, and helplessness all have improved. She is frustrated by having a 13 pound weight gain since last visit 3 weeks ago. States her appetite has increased. States her sleep has been good, no difficulty falling asleep, no difficulty staying asleep. Getting 8 to 9 hours of sleep at night. Denies any SI or HI. Denies any auditory hallucinations or visual hallucinations. Enjoying her therapy with Analy at [facility], therapy is going well. Ana Rosa Templeton CNM, [facility] [address], [place], [address], [facility] 09/09/2024 21:41:48 10/08/2024 text/html Met with Adalgisa today to follow-up on her recurrent MDD.. Adalgisa is doing well, states I feel great. Feelings of worthlessness, hopelessness, and helplessness all have improved. She is frustrated over the weight gain. States her appetite has increased. States mood taste much better. I am cooking. States sleep is wonderful. No difficulty falling asleep, no difficulty staying asleep. Getting 8 to 9 hours of sleep at night. Denies any SI or HI. Denies any auditory hallucinations or visual hallucinations. Therapy is going well. Ana Rosa Templeton CNM, [facility] [address], [place], [address], [facility] 10/08/2024 21:09:49 12/31/2024 text/html met with Adalgisa to follow-up on her MDD, insomnia, and abnormal weight gain. Adalgisa states her mood to be okay. Denies any feelings of worthlessness, hopelessness, or helplessness. She is feeling a decrease in her motivation. She states her sleep to be fine, one of her physicians increased her trazodone to 100 mg. Denies any problems falling asleep or staying asleep. Denies any SI or HI. Denies any auditory hallucinations or visual hallucinations. No longer seeing Analy for therapy, stating she feels like she no longer needs therapy. Ana Rosa Templeton CNM, [facility] [address], [place], [address], [facility] 12/31/2024 20:55:54 04/01/2025 text/html History of present illness Adalgisa Wu presents today for a follow-up visit. She reports that she is doing well and is all smiles today. She states that her weight has stabilized and she is continuing on the same medications. She reports that her mood is good and denies any feelings of worthlessness, hopelessness, or helplessness, stating I'm great, and I know it. She denies experiencing any hallucinations or having thoughts of harming herself or others. She reports that her appetite is good and her weight is stable, noting it was actually down like, a half a pound or something. She reports sleeping well, stating she sleeps like a baby with the help of her medication. She mentions having balance problems but clarifies that these are not new. She also reports experiencing significant dry mouth, stating I can hardly talk and My mouth gets so dry. I can hardly talk. She reports drinking water frequently throughout the day but still experiences significant dryness. Past Medical History Illness, Injuries, Operations, and Treatment: Not provided Previous Psychiatric or Mental Health Treatment: Not provided Previous Psychiatric or Mental Health Hospitalization: Not provided Medication History 1. Abilify 2mg daily 2. Wellbutrin 300mg daily 3. Lexapro 20mg daily (escitalopram) 4. Trazodone (dosage not specified) for sleep Ana Rosa Templeton CNM, [facility] [address], [place], [address], [facility] 04/01/2025 13:13:13 07/06/2025 text/html History of present illness Adalgisa Wu is a 79-year-old female presenting for follow-up. She reports ongoing depression with feelings of hopelessness and helplessness. She states that she has no energy at all and can't get off the couch on many days. She describes feeling very depressed again with weekends being particularly difficult due to less social interaction outside of [employer]. She reports having passive suicidal thoughts but [...] to clean my house. She mentions playing uBiome and bridge as activities she engages in, [...] sleep Ana Rosa Templeton, SCOTT, PMHNP-BC [address], [place], [address], [facility] 07/06/2025 23:40:05 OBGyn Episode No OBEpisode recorded.
--- OUTSIDE RECORDS SUMMARY | 2025-09-24 19:17 | XMS_ITS | Clinical Summary ---
Author Organization [facility] Address [address] [place] [address] Phone Care Team Providers Care Mds Manager Name Role Phone Unavailable Primary Care Provider Unavailabl e Allergies Active Allergy Reactions Criticality Noted Date Comments Penicillins Rash 06/11/2018 Medications potassium chloride (KLOR-CON) 20 mEq Extended Release tablet Take 20 mEq by mouth daily. Active propranolol (INDERAL) 60 mg Tablet Take 60 mg by mouth daily. Active propranolol (INDERAL LA) 120 mg Long Acting 24 hour capsule Take 120 mg by mouth daily. Active gabapentin (NEURONTIN) 300 mg capsule Take 300 mg by mouth 3 times daily. Active omeprazole (PriLOSEC) 20 mg Capsule, Delayed Release(E.C.) Take 20 mg by mouth daily. Active buPROPion HCl (WELLBUTRIN XL) 300 mg Extended Release 24 hour tablet Take 300 mg by mouth daily bag shaker. Active citalopram (CeleXA) 40 mg tablet Take 40 mg by mouth daily. Active aspirin (ECOTRIN EC) 81 mg Tablet, Delayed Release (E.C.) Take 81 mg by mouth daily. Active hydroCHLOROthiaz pb 50 mg tablet Take 50 mg by mouth daily. Active simvastatin (ZOCOR) 40 mg tablet Take 40 mg by mouth late in the day. Active Social History Tobacco Use Types Packs/Day Years Used Date Smoking Tobacco: Never Smokeless Tobacco: Never Alcohol Use Standard Drinks/Week Comments No 0 (1 standard drink = 0.6 oz pur e alcohol) Comments Unknown Sex and Gender Information Value Date Recorded Sex Assigned at Not on file Legal Sex Female 10:28 PM CDT Gender Identity Not on file Sexual Orientation Not on file Last Filed Vital Signs Vital Sign Reading Time Taken Comments Blood Pressure 131/77 06/12/2018 2:28 PM CDT Pulse 69 06/12/2018 2:00 PM CDT Temperature 36.4 C (97.5 F) 06/12/2018 2:00 PM CDT Respiratory Rate 16 06/12/2018 2:00 PM CDT Oxygen Saturation 94% 06/12/2018 2:00 PM CDT Inhaled Oxygen Concentration - - Weight 122 kg (269 lb) 06/12/2018 8:16 AM CDT Height - - Body Mass Index - - Plan of Treatment Health Maintenance Due Date Last Done Comments DTAP/TDAP/TD VACCINES (1 - Tdap) 1966 PNEUMOCOCCAL VACCINE 50+ YEARS (1 of 1 - PCV) 11/10/18 98 ZOSTER VACCINE (1 of 2) 1997 OSTEOPOROSIS SCREENING 2012 RSV VACCINE (60+ or ) (1 - 1-dose 75+ series) 2022 INFLUENZA VACCINE (#1) 2025 Insurance [facility] [id number] RX [employer] Member Subscriber Plan / Payer (Ef fective for All Dates) Name:MANDY WU Relation to Subscriber:Self Name:Janette Wu Payer ID:Not on file Group ID:[id number] Type:RX Medicare Part D Address: [address]
--- OUTSIDE RECORDS SUMMARY | 2025-09-24 19:17 | XMS_ITS | Patient Health Record ---
Author Organization [facility] [employer] Address [address] [place] [address] Care Team Providers Care Event Sales Assistant Name Role Phone Kyle Jeffries MD Primary Care Provider Radha Jenkins Unavailable [phone] Allergies Allergen (clinical drug ingredient) Drug/Non Drug Allergy documented on EMR Reaction Allergy Type Onset Date Status Substance with penicillin structure and antibacterial mechanism of action (substance) Penicillins Unknown Drug Allergy 01/31/2024 Active Reason For Referral No Information Medications Medication SIG (Take, Route, Frequency, Duration) Notes Start Date End Date Status Simvastatin 20 MG Tablet Oral 01/31/2024 Active Escitalopram Oxalate 20 MG Tablet 1 tablet Orally Once a day; Duration: 30 days Active clonazePAM 0.5 MG Tablet 0.5 - 1 tablet Orally Once a day; Duration: 30 days As needed for insomnia; avoid use with narcotic pain medication 08/13/2024 Active Furosemide 20 MG Tablet 1 tablet Orally Once a day As needed 01/31/2024 Active Propranolol HCl ER 160 MG Capsule Extended Release 24 Hour Oral 01/31/2024 Active Naproxen 375 MG Tablet Oral 01/31/2024 Active Potassium Chloride Darlene ER 20 MEQ Tablet Extended Release Oral 01/31/2024 Active Restasis 0.05 % Emulsion Ophthalmic 01/31/2024 Active Omeprazole 40 MG Capsule Delayed Release Oral 01/31/2024 Active hydroCHLOROthiazide 50 MG Tablet Oral 01/31/2024 Active traZODone HCl 50 MG Tablet 1 tablet Oral Once a day; Duration: 90 days Active Escitalopram Oxalate 20 MG Tablet 1 tablet Oral Once a day; Duration: 90 days Active MORPHINE SULFATE-0.9% NACL 50 mg/50 mL (1 mg/mL) PREFILLED PUMP RESERVOIR INTRAVENOUS *Reorder from Immunovaccine for eRx and Interaction Alerts* 01/31/2024 Active buPROPion HCl ER (XL) 300 MG Tablet Extended Release 24 Hour 1 tablet every morning Oral Once a day; Duration: 90 days 01/31/2024 Active Social History Tobacco Use: Social History Observation Description Date Details (start date - stop date) Never Smoker NA - NA Sex Assigned At : Social History Observation Description Sex Assigned At Female Social History Miscellaneous: Social Info Question Answer Notes Advance Care Planning Are you your own decision-maker Yes Do you have Power of Skydiving Instructor for Health or [facility]? No Safety issues: Are there any firearms in the house? No Social History Social Info Question Answer Notes Household: Marital Status: Number of Adults in household: 1 Number of Children in Household: 0 Level of Education: Not Finished College Drug/Alcohol: Social Info Question Answer Notes Drugs Have you used drugs other than those for medical reasons in the past 12 months? No AUDIT-C (Standard) Did you have a drink containing alcohol in the past year? No Interpretation Negative Tobacco Use: Social Info Question Answer Notes Tobacco Control (Standard) Tobacco use: Nonsmoker Additional Details Category Social Info Options Details Migrated Social History Migrated Social History Alcohol Intake: None 09/27/2023,Tobacco Years: Never smoker 09/27/2023 Problems Problem Type SNOMED Code ICD Code Onset Dates Problem Status W/U Status Risk Notes Problem Generalized anxiety disorder (85255826) Generalized anxiety disorder (F41.1) Active confirmed Problem Generalized anxiety disorder (42556066) RONAL (generalized anxiety disorder) (F41.1) Active confirmed Problem Recurrent major depression (57378444) Depression, major, recurrent, in remission (F33.40) Active confirmed Plan Of Treatment No Information Insurance Providers Payer Name Payer Address Payer Phone Subscriber Number Group Number Insured Name Patient Relationship to Insured Coverage Start Date Coverage End Date [employer] Medicare Replacement/ Advantage - [employer]mo [address] [address] [place] [address] [id number] RACHEL ENGEL Self - patient is the insured Medical (General) History Medical History History ICD Code Problems: Degeneration of lumbar interve rtebral disc Generalized anxiety disorder 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
--- OUTSIDE RECORDS SUMMARY | 2025-09-24 19:17 | XMS_ITS | Clinical Summary ---
Author Organization [facility] Address [address] [place] [address] Care Team Providers Care Piping Design Specialist Name Role Phone Keanu Urias MD Primary Care Provider [phone] Source Comments [facility],non-owned Affiliates and Associated Physician Practices is amultiple site organization consisting of ambulatory clinics and hospital sitesin [place], [place], [place] and [place]. This disclosure is being madepursuant to the Care Everywhere program and may not contain all information available regarding this patient. Last updated 18.[facility] Allergies Active Allergy Reactions Criticality Noted Date Comments Penicillins Rash Low 02/12/2016 Medications * This document contains information received from the source organization and may not represent a complete record from that organization. * Be aware that medications may not be up to date on this document. Alwaysverify current medications with the patient. 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 Gender Identity Not on file Sexual Orientation Not on file Last Filed Vital Signs Vital Sign Reading Time Taken Comments Blood Pressure 142/82 04/20/2016 2:20 PM CDT Pulse 72 04/20/2016 2:20 PM CDT Temperature 36.9 C (98.4 F) 02/12/2016 9:07 PM CDT Respiratory Rate 18 02/12/2016 5:00 PM CDT Oxygen Saturation 99% 02/12/2016 8:32 PM CDT Inhaled Oxygen Concentration - - Weight 124.3 kg (274 lb) 04/20/2016 2:20 PM CDT Height 172.7 cm (5' 8) 04/20/2016 2:20 PM CDT Body Mass Index 41.66 04/20/2016 2:20 PM CDT Plan of Treatment Health Maintenance Due Date Last Done Comments BONE DENSITY TESTING 1945 HEPATITIS C SCREENING 11/05/1965 DTAP/TDAP/TD VACCINES (1 - Tdap) 1966 PNEUMOCOCCAL VACCINE 50+ (1 of 1 - PCV) 1997 ZOSTER VACCINE (1 of 2) 1997 Respiratory Syncytial Virus (RSV) Vaccine Pt: or over 60 yrs (1 - 1-dose 75+ series) 2022 DEPRESSION SCREENING 10/01/2024 COVID-19 VACCINE ( - 2024-2 6 season) 2025 INFLUENZA VACCINE (#1) 2025 HEPATITIS B VACCINE Aged Out No longe r eligible based on patient's age to complete this topic HIB VACCINE Aged Out No longer eligi ble based on patient's age to complete this topic HPV VACCINE Aged Out No longer eligi ble based on patient's age to complete this topic MENINGOCOCCAL (Group B) VACC INE SHARED DECISION-MAKING Aged Out No longer eligibl e based on patient's age to complete this topic MENINGOCOCCAL GROUPS A/C/Y/W VACCINE Aged Out No longer eligible b ased on patient's age to complete this topic Insurance [address] MANAGED MEDICARE ADV [address] [place] [address] MANAGED MEDICARE ADV 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
--- OUTSIDE RECORDS SUMMARY | 2025-09-24 19:17 | XMS_ITS | Encounter Summary ---
Author Organization [facility] Address [address] [place] [address] Care Team Providers Care Frickertron Checker Name Role Phone Keanu Urias MD Primary Care Provider [phone] Kyle Jeffries MD Primary Care Provider [phone] Brenda Mckeon MD Unavailable Encounter Details Date Type Department Care Team (Late st Contact Info) Description 04/17/2018 Community Orders [facility] EpicCare Link Keanu Urias MD [address] [facility] [address] [place] [address] Spinal stenosis of lumbar region with radiculopathy (Primary Dx) Social History Tobacco Use Types Packs/Day Years Used Date Smoking Tobacco: Never Comments Unknown Sex and Gender Information Value Date Recorded Sex Assigned at Not on file 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 Gender Identity Not on file Sexual Orientation Not on file documented as of this encounter Plan of Treatment Scheduled Procedures Name Priority Associated Diagnoses Date/Ti me COLONOSCOPY Open Access Anemia, unspecified type ESOPHAGOGASTRODUODENOSCOPY Open Access Anemia, unspecified type ESOPHAGOGASTRODUODENOSCOPY Weight loss documented as of this encounter Results * MRI Lumbar Spine WO Contrast (04/27/2018 10:41 AM CDT) Anatomical Region Laterality Modality Spine N/A Magnetic Resonan ce 04/27/2018 1:48 PM CDT Impressions 04/27/2018 2:24 PM CDT Degenerative changes of the lumbar spine with severe spinal canal stenosis at L4-L5, as described in detail above. Electronically signed by: Agustin Vaz M.D. Narrative 04/27/2018 2:24 PM CDT EXAMINATION: Magnetic resonance imaging (MRI) of the lumber spine without contrast. HISTORY: Spinal stenosis of the lumbar region with radiculopathy. TECHNIQUE: Multiplanar multi-weighted MRI of the lumbar spine was performed without intravenous contrast using the standard lumbar spine protocol. COMPARISON: None available. FINDINGS: There is retrolisthesis of L2 over L3 and grade 1 anterolisthesis of L4 over L5. Vertebral bodies demonstrate Modic degenerative changes with marginal osteophytes at all levels. There is reduced disc space at L1-L2, L2-L3, L4-L5. There is disc desiccation at L1-L2, L2-L3. There is paraspinal fatty degeneration consistent with surgery at multiple levels. L1-L2: Disc bulge. There is moderate bilateral facet arthropathy. There is hypertrophy of ligamentum flavum. There is mild bilateral neuroforaminal stenosis. There is mild spinal canal stenosis. L2-L3: Disc bulge. There is left laminectomy and facetectomy with mild right facet arthropathy. There is hypertrophy of ligamentum flavum. There is mild bilateral neuroforaminal stenosis. There is mild spinal canal stenosis L3-L4: Disc bulge. There is mild bilateral facet arthropathy. There is mild bilateral neuroforaminal stenosis. There is severe spinal canal stenosis L4-L5: Disc bulge. There is moderate bilateral facet arthropathy. There is mild to moderate bilateral neuroforaminal stenosis. There is severe spinal canal stenosis L5-S1: Disc bulge. There is moderate bilateral facet arthropathy. There is moderate bilateral neuroforaminal stenosis. There is mild spinal canal stenosis There are no compression fractures. The conus medullaris terminates at the level of L1. The distal spinal cord signal intensity is normal. There are no annular fissures identified. Limited views of the abdomen and pelvis show no soft tissue abnormality. The aorta is normal. Note is made of simple cyst in both kidneys. Procedure Note Agustin Vaz MD PhD - 04/27/2018 EXAMINATION: Magnetic resonance imaging (MRI) of the lumber spine without contrast. HISTORY: Spinal stenosis of the lumbar region with radiculopathy. TECHNIQUE: Multiplanar multi-weighted MRI of the lumbar spine was performed without intravenous contrast using the standard lumbar spine protocol. COMPARISON: None available. FINDINGS: There is retrolisthesis of L2 over L3 and grade 1 anterolisthesis of L4 over L5. Vertebral bodies demonstrate Modic degenerative changes with marginal osteophytes at all levels. There is reduced disc space at L1-L2, L2-L3, L4-L5. There is disc desiccation at L1-L2, L2-L3. There is paraspinal fatty degeneration consistent with surgery at multiple levels. L1-L2: Disc bulge. There is moderate bilateral facet arthropathy. There is hypertrophy of ligamentum flavum. There is mild bilateral neuroforaminal stenosis. There is mild spinal canal stenosis. L2-L3: Disc bulge. There is left laminectomy and facetectomy with mild right facet arthropathy. There is hypertrophy of ligamentum flavum. There is mild bilateral neuroforaminal stenosis. There is mild spinal canal stenosis L3-L4: Disc bulge. There is mild bilateral facet arthropathy. There is mild bilateral neuroforaminal stenosis. There is severe spinal canal stenosis L4-L5: Disc bulge. There is moderate bilateral facet arthropathy. There is mild to moderate bilateral neuroforaminal stenosis. There is severe spinal canal stenosis L5-S1: Disc bulge. There is moderate bilateral facet arthropathy. There is moderate bilateral neuroforaminal stenosis. There is mild spinal canal stenosis There are no compression fractures. The conus medullaris terminates at the level of L1. The distal spinal cord signal intensity is normal. There are no annular fissures identified. Limited views of the abdomen and pelvis show no soft tissue abnormality. The aorta is normal. Note is made of simple cyst in both kidneys. IMPRESSION: Degenerative changes of the lumbar spine with severe spinal canal stenosis at L4-L5, as described in detail above. Electronically signed by: Agustin Vaz M.D. Keanu Urias MD IMG MRI PROCEDURES Final Resu lt documented in this encounter Visit Diagnoses Diagnosis Spinal stenosis of lumbar region with radiculopathy- Primary Spinal stenosis of lumbar region with radiculopathy documented in this encounter Additional Health Concerns Infection Onset Date Last Indicated Resolved Time COVID: Suspected 08/03/2022 08/03/2022 08/03/2022 4:44 PM CDT COVID: Suspected 08/03/2022 08/03/2022 08/03/2022 9:28 PM CDT documented as of this encounter Care Teams Frickertron Checker Relationship Specialty Start Date End Date Keanu Urias MD [address] [address] PCP - General 01/13/17 07/20/20 Kyle Jeffries MD [address] [address] PCP - General Internal Medicine 07/21/20 Brenda Mckeon MD [address] [facility] [phone] [place] [address] Consulting Physician Obstetrics and Gynecology 03/29/23 documented as of this encounter
[2025-09-24 22:09] LABS: Hematocrit 41.0 % (37.0-47.0); Hemoglobin 13.9 g/dL (12.0-15.0); Immature Granulocyte Percent A 0.4 % (0-0.5); Lymphocytes Absolute Auto 1.94 K/mm3 (0.9-3.2); Mean Corpuscular HGB Conc 33.9 g/dl (32-36); Mean Corpuscular Hemoglobin 30.0 pg (26-34); Mean Corpuscular Volume 88.6 fl (80-100); Nucleated Red Blood Cells Absolute Auto 0.000 K/mm3 (0.0-0.012); Nucleated Red Blood Cells Perc 0.0 % (0.0-0.2); Platelet Count Result 248 k/mm3 (150-375); Red Blood Count 4.63 M/mm3 (4.2-5.4); White Blood Count 12.4 K/mm3 (4.5-10.0)
[2025-09-24 22:12] LABS: Add Urine Microscopic? YES; Appearance Urine Clear (Clear); Glucose Urine UA Negative (Negative); Leukocyte Esterase Ur 2+ LEU/UL (Negative); Nitrate Urine Negative (Negative); Non Pathogenic Casts 0-2; Specific Grav Ur 1.025 (1.001-1.035)
[2025-09-24 22:23] LABS: Alanine Aminotransferase 12 U/L (6-35); Albumin Level 4.0 g/dL (3.5-5.1); Alkaline Phosphatase 77 U/L (38-126); Anion Gap 7 mmol/L (4-12); Aspartate Amino Transferase 21 U/L (14-36); Bilirubin,Total 0.8 mg/dL (0.2-1.3); Blood Urea Nitrogen 22 mg/dL (7-17); Calcium 8.8 mg/dL (8.4-10.2); Carbon Dioxide 30 mmol/L (22-30); Chloride 100 mmol/L (98-107); Estimated Glomerular Filt Rate 48; Glucose 108 mg/dL (65-110); Potassium 3.0 mmol/L (3.4-5.0); Sodium 137 mmol/L (137-145); Total Protein 7.1 g/dL (6.3-8.2)
--- NOTE | 2025-09-24 22:33 | PC.NURSE ---
Pt. to CT
--- NOTE | 2025-09-24 22:40 | ED.GENADULT ---
HPI - General Adult General Chief complaint: Abdominal Pain <RAJESH Bryant - Last Filed: 09/25/25 03:15> Stated complaint: Sharp pain on RT side <RAJESH Bryant - Last Filed: 09/25/25 03:15> Time Seen by Provider: 09/24/25 21:19 <RAJESH Bryant - Last Filed: 09/25/25 03:15> History of Present Illness HPI narrative: 79-year-old female presenting with sharp intermittent right flank and RLQ abdominal pain since this morning. Patient states that the pain is consistent but that it does worsen with. She reports a history cholecystectomy and hysterectomy with unilateral oophorectomy. She endorses that she still has her appendix and has no history of kidney stones. Denies nausea/vomiting/diarrhea, melena/hematochezia, urinary complaints, chest pains shortness of breath. Patient states her last bowel movement was yesterday. <RAJESH Bryant - Last Filed: 09/25/25 03:15> Related Data Home medications: Home Medications ?Medication ?Instructions ?Recorded ?Confirmed ?Last Taken ?Type bupropion HCl 300 mg 24 hr tablet, 300 mg PO DAILY 09/26/19 09/25/25 09/24/25 History extended release citalopram 40 mg tablet 40 mg PO DAILY 09/26/19 09/25/25 09/24/25 History hydrochlorothiazide 50 mg tablet 50 mg PO DAILY 09/26/19 09/25/25 09/24/25 History omeprazole 40 mg capsule,delayed 20 mg PO DAILY 09/26/19 09/25/25 Unknown History release potassium chloride 20 mEq 20 meq PO DAILY 09/26/19 09/25/25 09/25/25 History tablet,extended release(part/cryst) simvastatin 40 mg tablet 40 mg PO DAILY 09/26/19 09/25/25 09/24/25 History propranolol 120 mg capsule,24 120 mg PO DAILY 07/04/20 09/25/25 09/24/25 History hr,extended release naproxen 375 mg tablet 375 mg PO BID 12/20/20 09/25/25 09/24/25 History aripiprazole 2 mg tablet 2 mg PO DAILY 05/21/25 09/25/25 09/24/25 History topiramate 25 mg sprinkle capsule 25 mg PO DAILY 09/25/25 09/25/25 09/24/25 History trazodone 100 mg tablet 100 mg PO HS 09/25/25 09/25/25 09/23/25 History <RAJESH Bryant - Last Filed: 09/25/25 03:15> Allergies/adverse reactions: Allergies Allergy/AdvReac Type Severity Reaction Status Date / Time Penicillins Allergy Unknown Rash Verified 09/25/25 09:52 chlorhexidine Allergy Rash Verified 09/25/25 09:52 ciprofloxacin Allergy Hives Verified 09/25/25 09:53 Sulfa (Sulfonamide Allergy Rash Verified 09/25/25 09:52 Antibiotics) <RAJESH Bryant - Last Filed: 09/25/25 03:15> Review of Systems Review of Systems: All systems reviewed & are unremarkable except as noted in HPI and below <RAJESH Bryant - Last Filed: 09/25/25 03:15> [facility] Past Medical History Medical History: Medical History Cataracts, bilateral Maturing Chronic low back pain Managed by Dr. Brennan currently getting treated with injections Depression GERD (gastroesophageal reflux disease) Hypercholesterolemia Obesity Obstructive sleep apnea Non adherent to CPAP therapy TIA (transient ischemic attack) 2014 <RAJESH Bryant - Last Filed: 09/25/25 03:15> Surgical History Surgical History: Surgical History H/O cervical spine surgery 1993 with anterior cervical fusion History of cardiac catheterization Normal May 2019 History of gastric bypass In 2002 with subsequent reversal after prolonged hospitalization due to infection. 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 She is and lives in [place]. She has 1 daughter. Primary care physician: She reports that her primary care physician Dr. Keanu Urias retired last summer. She has not yet become established with a new provider. Code status: Full code Surrogate decision maker: Aure Rodriguez (daughter) Smoking status: Never smoker Second hand tobacco smoke exposure: Yes Alcohol intake: never Substance use: never Substance use type: does not use Lack of Transportation: No Lack of Food: Never True Current Housing: I Have Housing Concerned About Future Housing: No Difficulty Paying Gas/Electric Bills: No Difficulty Paying for Meds: No Currently Unemployed: No Education: High School Diploma/GED Difficulty w/ Childcare or Family Care: No Gender identity (if verbalized by the patient): Female Sexual Orientation (if Verbalized by the Patient): Straight or Heterosexual Spiritual care concerns: No <RAJESH Bryant - Last Filed: 09/25/25 03:15> Exam Narrative: GENERAL: Well-appearing, well-nourished, and in no acute distress. HEAD: Normocephalic, atraumatic. EYES: PERRLA and EOMI. ENT: Nares clear, no rhinorrhea or epistaxis. Mucous membranes moist. Oropharynx without tonsillar hypertrophy exudate or other lesions. Bilateral TMs pearly wright non-bulging NECK: Supple. No adenopathy or masses. No carotid bruits or JVD CHEST: Clear to auscultation. No respiratory distress. No wheezes rales or rhonchi HEART: Regular rate and rhythm. No murmur heard. Normal peripheral pulses. ABDOMEN: Soft, nondistended, normal active bowel sounds. RLQ TTP. LLQ palpable firmness at the site of a previous intrathecal pain pump, without erythema, warmth, or fluctuance. EXTREMITIES: Normal range of motion. No edema. SKIN: Warm, dry, no rash. NEURO: No focal deficits. Alert and oriented x3. PSYCH: Normal mood and affect <RAJESH Bryant - Last Filed: 09/25/25 03:15> Course SERVICE REPRESENTATIVE/PA Physician Supervision PA advised this patient would be admitted under general surgeon for acute uncomplicated appendicitis. We discussed a variety of antibiotic regimens that could be used (Zosyn had been advised by general surgeon but lists a penicillin allergy). Has been stable. <Isabel Gonzales MD - Last Filed: 09/25/25 10:17> Vital Signs Vital signs: Vital Signs Temperature 98.5 F 09/24/25 19:19 Pulse Rate 63 09/24/25 19:19 Respiratory Rate 16 09/24/25 19:19 Blood Pressure 107/71 09/24/25 19:19 Pulse Oximetry 98 09/24/25 19:19 Oxygen Delivery Room Air 09/24/25 19:19 Temperature 98 F 09/25/25 09:45 Pulse Rate 61 09/25/25 09:45 Respiratory Rate 20 09/25/25 09:45 Blood Pressure 116/63 09/25/25 09:45 Pulse Oximetry 93 09/25/25 09:45 Oxygen Delivery Room Air 09/25/25 09:45 <RAJESH Bryant - Last Filed: 09/25/25 03:15> Vital Signs Temperature 98.5 F 09/24/25 19:19 Pulse Rate 63 09/24/25 19:19 Respiratory Rate 16 09/24/25 19:19 Blood Pressure 107/71 09/24/25 19:19 Pulse Oximetry 98 09/24/25 19:19 Oxygen Delivery Room Air 09/24/25 19:19 Temperature 98 F 09/25/25 09:45 Pulse Rate 61 09/25/25 09:45 Respiratory Rate 20 09/25/25 09:45 Blood Pressure 116/63 09/25/25 09:45 Pulse Oximetry 93 09/25/25 09:45 Oxygen Delivery Room Air 09/25/25 09:45 <Isabel Gonzales MD - Last Filed: 09/25/25 10:17> [facility] MDM Narrative Medical decision making narrative: 79-year-old female presenting with sharp intermittent right flank and RLQ abdominal pain since this morning. Patient states that the pain is consistent but that it does worsen with movement. She reports a history cholecystectomy and hysterectomy with unilateral oophorectomy. She endorses that she still has her appendix and has no history of kidney stones. Denies nausea/vomiting/diarrhea, melena/hematochezia, urinary complaints, chest pains shortness of breath. Patient states her last bowel movement was yesterday. Upon my initial assessment patient appears nontoxic with stable vitals. Labs demonstrated leukocytosis at 12.4, mild azotemia with slightly reduced eGFR, and mild hypokalemia. Replenished orally and administered a half L of fluids. Imaging demonstrates acute uncomplicated appendicitis. Discussed with general surgeon Dr. Multani patient presentation and workup. Agrees with admission at this time with recommendations to begin Zosyn. Patient has a mild penicillin allergy, started ciprofloxacin and metronidazole. Patient is stable pending transfer upstairs. <RAJESH Bryant - Last Filed: 09/25/25 03:15> Differential Diagnosis Differential Diagnosis: Differential diagnostic considerations for acute abdominal pain include surgical abdominal etiology, ischemic bowel, inflammatory bowel disease, gastritis, PUD, gastroenteritis, cardiac etiology, appendicitis, diverticulitis, bowel obstruction, kidney stone, pyelonephritis, abdominal aortic aneurysm, pancreatitis, constipation, endometriosis. <RAJESH Bryant - Last Filed: 09/25/25 03:15> Medical Records I have reviewed the following patient records and this information was taken into consideration when formulating the assessment and plan.: previous labs and previous ER visits <RAJESH Bryant - Last Filed: 09/25/25 03:15> Lab Data MDM Lab Attestation statement: I personally reviewed the patient's lab results. <RAJESH Bryant - Last Filed: 09/25/25 03:15> Result diagrams: 09/24/25 22:00 09/24/25 22:00 <RAJESH Bryant - Last Filed: 09/25/25 03:15> Labs: Lab Results 09/24/25 Range/Units 22:00 WBC 12.4 H (4.5-10.0) K/mm3 RBC 4.63 (4.2-5.4) M/mm3 Hgb 13.9 (12.0-15.0) g/dL Hct 41.0 (37.0-47.0) % MCV 88.6 (80-100) fl MCH 30.0 (26-34) pg MCHC 33.9 (32-36) g/dl RDW 13.7 (11.5-14.5) % Plt Count 248 (150-375) k/mm3 MPV 9.8 (7.4-10.4) fl Immature Gran % (Auto) 0.4 (0-0.5) % Neut % (Auto) 73.2 H (45.5-73.1) % Lymph % (Auto) 15.7 L (18.3-44.2) % [place] % (Auto) 9.7 H (2.6-8.5) % Eos % (Auto) 0.8 (0-4.4) % Baso % (Auto) 0.2 (0.2-1.2) % Lymph # (Auto) 1.94 (0.9-3.2) K/mm3 [place] # (Auto) 1.2 H (0.1-0.6) K/mm3 Eos # (Auto) 0.1 (0-0.3) K/mm3 Baso # (Auto) 0.0 (0.0-0.1) K/mm3 Abs Immat Gran (auto) 0.05 H (0.00-0.031) K/mm3 Absolute Neuts (auto) 9.1 H (1.3-6.7) K/mm3 Absolute Nucleated RBC 0.000 (0.0-0.012) K/mm3 Nucleated RBC % 0.0 (0.0-0.2) % PT 14.1 (11.1-14.7) Seconds INR 1.1 APTT 30.8 (22.3-36.8) Seconds Sodium 137 (137-145) mmol/L Potassium 3.0 L (3.4-5.0) mmol/L Chloride 100 (98-107) mmol/L Carbon Dioxide 30 (22-30) mmol/L Anion Gap 7 (4-12) mmol/L BUN 22 H (7-17) mg/dL Creatinine 1.11 H (0.7-1.0) mg/dL Estim Creat Clear Calc Not Reportable Estimated GFR 48 L (59 - ) Glucose 108 (65-110) mg/dL Calcium 8.8 (8.4-10.2) mg/dL Magnesium 1.8 (1.6-2.3) mg/dL Total Bilirubin 0.8 (0.2-1.3) mg/dL AST 21 (14-36) U/L ALT 12 (6-35) U/L Alkaline Phosphatase 77 (38-126) U/L Total Protein 7.1 (6.3-8.2) g/dL Albumin 4.0 (3.5-5.1) g/dL Lipase 33 (23-300) U/L Urine Color Dark yellow (Yellow) Urine Appearance Clear (Clear) Urine pH 7.0 (5.0-9.0) Ur Specific [place] 1.025 (1.001-1.035) Urine Protein Trace (Negative) mg/dL Urine Glucose (UA) Negative (Negative) mg/dL Urine Ketones Trace H (Negative) mg/dL Ur Blood (Man) Negative (Negative) Urine Nitrate Negative (Negative) Urine Bilirubin Negative (Negative) Urine Urobilinogen 1.0 (<2.0) mg/dL Leukocyte Esterase Rfl 2+ H (Negative) AMANDEEP/UL Urine RBC 0-2 (0-2) /hpf Urine WBC 21-50 H (0-3) /hpf Ur Squamous Epith Cells Few (Few) /hpf Urine Bacteria None seen /hpf Urine Casts 0-2 <RAJESH Bryant - Last Filed: 09/25/25 03:15> Lab Results 09/24/25 Range/Units 22:00 WBC 12.4 H (4.5-10.0) K/mm3 RBC 4.63 (4.2-5.4) M/mm3 Hgb 13.9 (12.0-15.0) g/dL Hct 41.0 (37.0-47.0) % MCV 88.6 (80-100) fl MCH 30.0 (26-34) pg MCHC 33.9 (32-36) g/dl RDW 13.7 (11.5-14.5) % Plt Count 248 (150-375) k/mm3 MPV 9.8 (7.4-10.4) fl Immature Gran % (Auto) 0.4 (0-0.5) % Neut % (Auto) 73.2 H (45.5-73.1) % Lymph % (Auto) 15.7 L (18.3-44.2) % [place] % (Auto) 9.7 H (2.6-8.5) % Eos % (Auto) 0.8 (0-4.4) % Baso % (Auto) 0.2 (0.2-1.2) % Lymph # (Auto) 1.94 (0.9-3.2) K/mm3 [place] # (Auto) 1.2 H (0.1-0.6) K/mm3 Eos # (Auto) 0.1 (0-0.3) K/mm3 Baso # (Auto) 0.0 (0.0-0.1) K/mm3 Abs Immat Gran (auto) 0.05 H (0.00-0.031) K/mm3 Absolute Neuts (auto) 9.1 H (1.3-6.7) K/mm3 Absolute Nucleated RBC 0.000 (0.0-0.012) K/mm3 Nucleated RBC % 0.0 (0.0-0.2) % PT 14.1 (11.1-14.7) Seconds INR 1.1 APTT 30.8 (22.3-36.8) Seconds Sodium 137 (137-145) mmol/L Potassium 3.0 L (3.4-5.0) mmol/L Chloride 100 (98-107) mmol/L Carbon Dioxide 30 (22-30) mmol/L Anion Gap 7 (4-12) mmol/L BUN 22 H (7-17) mg/dL Creatinine 1.11 H (0.7-1.0) mg/dL Estim Creat Clear Calc Not Reportable Estimated GFR 48 L (59 - ) Glucose 108 (65-110) mg/dL Calcium 8.8 (8.4-10.2) mg/dL Magnesium 1.8 (1.6-2.3) mg/dL Total Bilirubin 0.8 (0.2-1.3) mg/dL AST 21 (14-36) U/L ALT 12 (6-35) U/L Alkaline Phosphatase 77 (38-126) U/L Total Protein 7.1 (6.3-8.2) g/dL Albumin 4.0 (3.5-5.1) g/dL Lipase 33 (23-300) U/L Urine Color Dark yellow (Yellow) Urine Appearance Clear (Clear) Urine pH 7.0 (5.0-9.0) Ur Specific [place] 1.025 (1.001-1.035) Urine Protein Trace (Negative) mg/dL Urine Glucose (UA) Negative (Negative) mg/dL Urine Ketones Trace H (Negative) mg/dL Ur Blood (Man) Negative (Negative) Urine Nitrate Negative (Negative) Urine Bilirubin Negative (Negative) Urine Urobilinogen 1.0 (<2.0) mg/dL Leukocyte Esterase Rfl 2+ H (Negative) AMANDEEP/UL Urine RBC 0-2 (0-2) /hpf Urine WBC 21-50 H (0-3) /hpf Ur Squamous Epith Cells Few (Few) /hpf Urine Bacteria None seen /hpf Urine Casts 0-2 <Isabel Gonzales MD - Last Filed: 09/25/25 10:17> Discharge Plan Discharge Clinical Impression: Appendicitis <RAJESH Bryant - Last Filed: 09/25/25 03:15> Patient Disposition: Still a Patient <RAJESH Bryant - Last Filed: 09/25/25 03:15> Condition: Stable <RAJESH Bryant - Last Filed: 09/25/25 03:15>
[2025-09-24 23:19] LABS: Lipase 33 U/L (23-300); Magnesium 1.8 mg/dL (1.6-2.3)
[2025-09-24] MEDS: ONDANSETRON INJ 4 MG/2 ML VIAL IV PUSH (23:22)
[2025-09-24] MEDS: SODIUM CHLORIDE 0.9% IV 500 ML 999 ML IV CONT (23:23)
[2025-09-24] MEDS: POTASSIUM CHLORIDE 20 MEQ ER TABLET PO (23:23)
[2025-09-24] MEDS: MORPHINE SULFATE (*CRX) 4 MG/ML INJ 2 MG IV PUSH (23:23)
[2025-09-25] VITALS (20 sets, daily range): BP systolic 101–153; BP diastolic 51–78; PULSE 61–78; RESP 12–20; TEMP 36.2–36.9; O2SAT 89–99; BMI 34.0
[2025-09-25 00:28] LABS: INR 1.1; Prothrombin Time 14.1 Seconds (11.1-14.7)
[2025-09-25 00:29] LABS: Partial Thromboplastin Time 30.8 Seconds (22.3-36.8)
[2025-09-25] MEDS: SODIUM CHLORIDE 0.9% IV 500 ML 999 ML IV CONT (02:32)
[2025-09-25] MEDS: MORPHINE SULFATE (*CRX) 4 MG/ML INJ 2 MG IV PUSH (02:32)
[2025-09-25] MEDS: metroNIDAZOLE 500 MG/ISO 100ML 500 MG/100 ML BAG 100 MG IVPB (02:50)
[2025-09-25] MEDS: CIPROFLOXACIN 400 MG/D5W 200ML 200 ML 200 MG IVPB (03:53)
--- NOTE | 2025-09-25 03:55 | WPCEDHO ---
ED Hand Off Checklist All vitals saved: Yes IV Site documented: Yes All med administrations documented: Yes Triage Note Triage Note Pt presents to ED c/o worsening 5 09/24/25 19:19 /10 sharp RLQ pain near R hip, non radiating started this AM. Pt took Aleve around 1700 with no improvement. Pt denies n/v, denies diarrhea, denies constipation, denies fever, denies trauma. Allergies Penicillins Allergy (Unknown, Verified 05/21/25 15:34) Rash and blisters chlorhexidine Allergy (Verified 05/21/25 15:34) Rash from hibiclens scrub before surgery Sulfa (Sulfonamide Antibiotics) Allergy (Verified 05/21/25 15:34) Rash Family History (Last Reviewed 09/16/22 @ 17:20 by Dougie Borges, DO) Mother Cerebral aneurysm Father Murder Sibling Diabetes mellitus Administered/Completed Medications Discontinued Medications Sodium Chloride (Normal Saline Iv) 500 mls @ 999 mls/hr IV CONT .Q31M STA Stop: 09/24/25 23:10 Last Infusion: 09/25/25 00:07 Dose: Infused Documented By: Admin: 09/24/25 23:23 Dose: 999 mls/hr Documented By: MARY Sodium Chloride (Normal Saline Iv) 500 mls @ 999 mls/hr IV CONT .Q31M STA Stop: 09/25/25 01:16 Last Infusion: 09/25/25 03:34 Dose: Infused Documented By: Admin: 09/25/25 02:32 Dose: 999 mls/hr Documented By: JAYE Metronidazole (Flagyl 500 Mg/Iso Soln 100 Ml) 500 mg in 100 mls @ 100 mls/hr IVPB ONCE STA Stop: 09/25/25 03:22 Last Infusion: 09/25/25 03:48 Dose: Infused Documented By: Admin: 09/25/25 02:50 Dose: 100 mls/hr Documented By: JAYE Ciprofloxacin/Dextrose (Cipro 400 Mg/D5w 200 Ml) 200 mls @ 200 mls/hr IVPB ONCE STA Stop: 09/25/25 03:27 Last Admin: 09/25/25 03:53 Dose: 200 mls/hr Documented By: JAYE Morphine Sulfate (Morphine Sulfate (*Crx) 4 Mg/Ml Inj) 2 mg IV PUSH ONCE STA Stop: 09/24/25 22:27 Last Admin: 09/24/25 23:23 Dose: 2 mg Documented By: MARY Morphine Sulfate (Morphine Sulfate (*Crx) 4 Mg/Ml Inj) 2 mg IV PUSH ONCE STA Stop: 09/25/25 02:10 Last Admin: 09/25/25 02:32 Dose: 2 mg Documented By: JAYE Ondansetron HCl (Ondansetron Inj 4 Mg/2 Ml Vial) 4 mg IV PUSH ONCE STA Stop: 09/24/25 22:27 Last Admin: 09/24/25 23:22 Dose: 4 mg Documented By: MARY Potassium Chloride (Potassium Chloride 20 Meq Er Tablet) 20 meq PO ONCE STA Stop: 09/24/25 22:27 Last Admin: 09/24/25 23:23 Dose: 20 meq Documented By: MARY Notes 09/24/25 22:33 Nurse Note by Annie Chacon Pt. to CT Initialized on 09/24/25 22:33 - END OF NOTE Interventions/Assessments IV / Saline Lock, Insert Start: 09/24/25 19:19 Freq: Status: Active Protocol: Document 09/24/25 22:00 KJT (Rec: 09/24/25 22:02 KJT [id number]) IV Assessment Peripheral Access Left Forearm IV Catheter Access Initiated IV Insertion Date 09/24/25 IV Insertion Time 22:01 Catheter Gauge 20 IV Insertion 2 Attempts Ultrasound Used for No Placement IV Site Assessment WNL IV Care and WNL Maintenance PA: Gastrointestinal Assessment Start: 09/24/25 19:19 Freq: Status: Active Protocol: Document 09/24/25 19:25 EZG (Rec: 09/24/25 19:26 EZG [id number]) GI Assessment Gastrointestinal Pain Symptoms Description Soft Pattern Normal Flatus Present Date of Last Bowel 09/23/25 Movement Stool Brown Characterisitics Stool Size Small Nausea/Vomiting Assessment Nausea Frequency None Emesis Frequency None Last Vital Signs Temperature 98.5 F 09/24/25 19:19 Pulse Rate 70 09/24/25 23:21 Respiratory Rate 16 09/24/25 23:21 Pulse Oximetry 89 L 09/25/25 03:46 Blood Pressure 115/59 L 09/25/25 03:46 Blood Pressure Mean 77 09/25/25 03:46 Blood Pressure Position Sitting 09/24/25 23:21 Oxygen Delivery Room Air 09/24/25 19:19 Last Result - Abnormals Only WBC 12.4 K/mm3 (4.5-10.0) H 09/24/25 22:00 Neut % (Auto) 73.2 % (45.5-73.1) H 09/24/25 22:00 Lymph % (Auto) 15.7 % (18.3-44.2) L 09/24/25 22:00 [place] % (Auto) 9.7 % (2.6-8.5) H 09/24/25 22:00 [place] # (Auto) 1.2 K/mm3 (0.1-0.6) H 09/24/25 22:00 Abs Immat Gran (auto) 0.05 K/mm3 (0.00-0.031) H 09/24/25 22:00 Absolute Neuts (auto) 9.1 K/mm3 (1.3-6.7) H 09/24/25 22:00 Potassium 3.0 mmol/L (3.4-5.0) L 09/24/25 22:00 BUN 22 mg/dL (7-17) H 09/24/25 22:00 Creatinine 1.11 mg/dL (0.7-1.0) H 09/24/25 22:00 Estimated GFR 48 (59-) L 09/24/25 22:00 Urine Ketones Trace mg/dL (Negative) H 09/24/25 22:00 Leukocyte Esterase Rfl 2+ AMANDEEP/UL (Negative) H 09/24/25 22:00 Urine WBC 21-50 /hpf (0-3) H 09/24/25 22:00 Most Recent Suicide Severity Rating Suicide Severity Rating NO RISK INDICATED 09/24/25 19:19
--- NOTE | 2025-09-25 04:45 | ADMGEN ---
This patient, Janette Wu, was admitted to 2 Medical Room 251-. Patient/family oriented to hospital policies and general routines including ID bracelet, bed and alarms, visiting hours, pain management, procedures, bathroom and other care routines, personal items, smoking policy, room service/diet, and visiting hours. Information on how to activate the Rapid Response Team has been discussed. Patient/Family are encouraged to report perceived risks to care and to ask questions if they do not understand what they are told or what they should do.
[2025-09-25] MEDS: diphenhydrAMINE HCl CAP 25 MG CAPSULE PO (06:00)
[2025-09-25] MEDS: AZTREONAM 1 GM in SODIUM CHLORIDE 0.9% IV 50 ML IVPB ×3 (06:01→22:33)
--- NOTE | 2025-09-25 06:28 | PC.NURSE ---
Patient was recieving Ciprofloxacin 400mg/D5W IV at 0415. Patient reported itching and redness to skin. Upon assessment, noted generalized urticarial rash to fold of left arm. No SOB, wheezing or throat tightness noted. Vitals stable: BP141/53. HR 68 R 20 Sp02 97% RA. Ciprofloxacin discontinued. Provider, Dr. Multani Notified at 0500, new orders received for diphenhydramine 25mg PO, administered with good tolerance. Aztreonam 1gm IV Q8hrs.
--- NOTE | 2025-09-25 09:15 | PC.NURSE ---
Report called to Bushra JENSEN in preop.
--- NOTE | 2025-09-25 09:35 | PC.NURSE ---
To OR via wheelchair. Voiding without difficulty. Family at bedside,
--- NOTE | 2025-09-25 09:43 | PM.IMHP2 ---
H&P: HPI History of Present Illness Date/Time: 09/25/25 09:43 Chief Complaint: abdominal pain Narrative: Patient is a 79-year-old female with minimal pertinent past medical history who presented to the emergency department last night with right flank/right lower quadrant abdominal pain that started earlier in the morning after she had awoken. She states that the pain was exacerbated with movement and walking. Denies any associated nausea and vomiting. She has not eaten in 2 days. For the last bowel movement was also 2 days ago. She states that she usually has a bowel movement every day. Patient denies any blood in her stool or urine. Upon admission to the hospital, labs revealed a white blood cell count was 12.4. Afebrile. CT was obtained and demonstrated wall thickening and inflammatory changes to the cecum and appendix. Patient was started on IV antibiotics. Made NPO with IV fluids. Upon interview today, patient still endorses some right lower quadrant pain that she rates at a 5/10. Patient's previous abdominal surgeries include a hysterectomy, cholecystectomy, gastric bypass with reversal, and insertion of left abdominal pain pump for chronic back pain. FORMERLY [facility], [facility] Past Medical History Medical History Cataracts, bilateral Maturing Chronic low back pain Managed by Dr. Brennan currently getting treated with injections Depression GERD (gastroesophageal reflux disease) Hypercholesterolemia Obesity Obstructive sleep apnea Non adherent to CPAP therapy TIA (transient ischemic attack) 2014 Surgical History Surgical History H/O cervical spine surgery 1993 with anterior cervical fusion History of cardiac catheterization Normal May 2019 History of gastric bypass In 2002 with subsequent reversal after prolonged hospitalization due to infection. 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 She is and lives in [place]. She has 1 daughter. Primary care physician: She reports that her primary care physician Dr. Keanu Urias retired last summer. She has not yet become established with a new provider. Code status: Full code Surrogate decision maker: Aure Rodriguez (daughter) Smoking status: Never smoker Second hand tobacco smoke exposure: Yes Alcohol intake: never Substance use: never Substance use type: does not use Lack of Transportation: No Lack of Food: Never True Current Housing: I Have Housing Concerned About Future Housing: No Difficulty Paying Gas/Electric Bills: No Difficulty Paying for Meds: No Currently Unemployed: No Education: High School Diploma/GED Difficulty w/ Childcare or Family Care: No Gender identity (if verbalized by the patient): Female Sexual Orientation (if Verbalized by the Patient): Straight or Heterosexual Spiritual care concerns: No Meds Home Medications and Allergies Home Medications ?Medication ?Instructions ?Recorded ?Confirmed ?Type bupropion HCl 300 mg 24 hr tablet, 300 mg PO DAILY 09/26/19 09/25/25 History extended release citalopram 40 mg tablet 40 mg PO DAILY 09/26/19 09/25/25 History hydrochlorothiazide 50 mg tablet 50 mg PO DAILY 09/26/19 09/25/25 History omeprazole 40 mg capsule,delayed 20 mg PO DAILY 09/26/19 09/25/25 History release potassium chloride 20 mEq 20 meq PO DAILY 09/26/19 09/25/25 History tablet,extended release(part/cryst) simvastatin 40 mg tablet 40 mg PO DAILY 09/26/19 09/25/25 History propranolol 120 mg capsule,24 120 mg PO DAILY 07/04/20 09/25/25 History hr,extended release naproxen 375 mg tablet 375 mg PO BID 12/20/20 09/25/25 History aripiprazole 2 mg tablet 2 mg PO DAILY 05/21/25 09/25/25 History topiramate 25 mg sprinkle capsule 25 mg PO DAILY 09/25/25 09/25/25 History trazodone 100 mg tablet 100 mg PO HS 09/25/25 09/25/25 History Allergies Allergy/AdvReac Type Severity Reaction Status Date / Time Penicillins Allergy Unknown Rash Verified 09/25/25 09:52 chlorhexidine Allergy Rash Verified 09/25/25 09:52 ciprofloxacin Allergy Hives Verified 09/25/25 09:53 Sulfa (Sulfonamide Allergy Rash Verified 09/25/25 09:52 Antibiotics) Vital Signs Vital Signs - 24 hr 09/24/25 19:19 09/24/25 21:59 09/24/25 22:00 Temperature 98.5 F Pulse Rate 63 77 Respiratory Rate 16 16 Blood Pressure 107/71 118/58 L 119/68 Pulse Oximetry 98 99 94 Oxygen Delivery Room Air 09/24/25 22:01 09/24/25 22:16 09/24/25 22:47 Temperature Pulse Rate Respiratory Rate Blood Pressure 119/68 117/75 159/122 H Pulse Oximetry 99 98 100 Oxygen Delivery 09/24/25 23:21 09/25/25 03:31 09/25/25 03:46 Temperature Pulse Rate 70 Respiratory Rate 16 Blood Pressure 140/71 109/69 115/59 L Pulse Oximetry 99 93 89 L Oxygen Delivery 09/25/25 03:56 09/25/25 04:16 09/25/25 04:42 Temperature 98.2 F 97.3 F L Pulse Rate 63 68 68 Respiratory Rate 18 20 20 Blood Pressure 101/60 141/53 H Pulse Oximetry 96 97 97 Oxygen Delivery Room Air 09/25/25 07:45 Temperature Pulse Rate Respiratory Rate 20 Blood Pressure Pulse Oximetry 97 Oxygen Delivery Room Air Exam Const: General: comfortable and no acute distress Eyes: General: appearance normal, both eyes and all related structures Neck: Neck: supple Resp: Effort & Inspection: normal respiratory effort Cardio: Rate: regular rate GI: Inspection: non-distended GI Palp: Yes Soft to palpation and Yes Tenderness to palpation present (GI) (RLQ) Auscultation: normal bowel sounds Other: Pain pump palpable underneath the skin of the left abdomen periumbilical region. Skin: General skin exam: normal color and no rashes or lesions noted Neuro: Speech: normal speech Extrem: General: normal to inspection Psych: Mental Status: mental status grossly normal Results Labs Labs: Short CBC 09/24/25 Range/Units 22:00 WBC 12.4 H (4.5-10.0) K/mm3 Hgb 13.9 (12.0-15.0) g/dL Hct 41.0 (37.0-47.0) % Plt Count 248 (150-375) k/mm3 [facility] 09/24/25 22:00 Sodium 137 Potassium 3.0 L Chloride 100 Carbon Dioxide 30 BUN 22 H Creatinine 1.11 H Glucose 108 Calcium 8.8 Liver Function 09/24/25 Range/Units 22:00 Total Bilirubin 0.8 (0.2-1.3) mg/dL AST 21 (14-36) U/L ALT 12 (6-35) U/L Alkaline Phosphatase 77 (38-126) U/L Albumin 4.0 (3.5-5.1) g/dL Urine 09/24/25 Range/Units 22:00 Urine Color Dark yellow (Yellow) Urine Appearance Clear (Clear) Urine pH 7.0 (5.0-9.0) Ur Specific [place] 1.025 (1.001-1.035) Urine Protein Trace (Negative) mg/dL Urine Glucose (UA) Negative (Negative) mg/dL Assessment and Plan Assessment and plan (1) Appendicitis: Code(s): K37 - Unspecified appendicitis Status: Acute Assessment and Plan: Patient presented to the emergency department last night with right lower quadrant pain that started earlier in the morning when she woke up. She denies any associated nausea and vomiting. Upon arrival to the ED last night labs revealed a WBC count of 12.4. CT demonstrated acute appendicitis, with no abscess or perforation identified. Patient is started on IV antibiotics. Made NPO for surgery today. Discussed risks benefits, alternatives, and recovery of laparoscopic appendectomy with patient. She understands and wishes to proceed. Plan Discussed patient's case and plan of care with Dr. Multani.
[2025-09-25] MEDS: LACTATED RINGERS 1,000 ML 30 ML IV CONT ×2 (10:00→12:57)
--- NOTE | 2025-09-25 10:17 | WPDANESEPPF ---
Anes - Initial Pre Proc Eval Procedure: Operation Date: 09/25/25 11:00 Proposed Procedures p Laparoscopic Appendectomy, Possible Open - Guillermo Multani MD Date/Time: 09/25/25 10:17 Surgeon: Guillermo Multani MD Pre Op Diagnosis: Acute appendicitis Patient Data Age: 79 Gender: F Height: 1.73 m Weight: 101.5 kg Last Vital Signs Temp 36.6 C 09/25/25 09:45 Pulse 61 09/25/25 09:45 Resp 20 09/25/25 09:45 BP 116/63 09/25/25 09:45 Pulse Ox 93 09/25/25 09:45 O2 Del Method Room Air 09/25/25 09:45 Allergies Allergy/AdvReac Type Severity Reaction Status Date / Time Penicillins Allergy Unknown Rash Verified 09/25/25 09:52 chlorhexidine Allergy Rash Verified 09/25/25 09:52 ciprofloxacin Allergy Hives Verified 09/25/25 09:53 Sulfa (Sulfonamide Allergy Rash Verified 09/25/25 09:52 Antibiotics) Home Medications ?Medication ?Instructions ?Recorded ?Confirmed ?Type bupropion HCl 300 mg 24 hr tablet, 300 mg PO DAILY 09/26/19 09/25/25 History extended release citalopram 40 mg tablet 40 mg PO DAILY 09/26/19 09/25/25 History hydrochlorothiazide 50 mg tablet 50 mg PO DAILY 09/26/19 09/25/25 History omeprazole 40 mg capsule,delayed 20 mg PO DAILY 09/26/19 09/25/25 History release potassium chloride 20 mEq 20 meq PO DAILY 09/26/19 09/25/25 History tablet,extended release(part/cryst) simvastatin 40 mg tablet 40 mg PO DAILY 09/26/19 09/25/25 History propranolol 120 mg capsule,24 120 mg PO DAILY 07/04/20 09/25/25 History hr,extended release naproxen 375 mg tablet 375 mg PO BID 12/20/20 09/25/25 History aripiprazole 2 mg tablet 2 mg PO DAILY 05/21/25 09/25/25 History topiramate 25 mg sprinkle capsule 25 mg PO DAILY 09/25/25 09/25/25 History trazodone 100 mg tablet 100 mg PO HS 09/25/25 09/25/25 History Laboratory Tests 09/24/25 22:00 WBC 12.4 H K/mm3 (4.5-10.0) RBC 4.63 M/mm3 (4.2-5.4) Hgb 13.9 g/dL (12.0-15.0) Hct 41.0 % (37.0-47.0) MCV 88.6 fl (80-100) MCH 30.0 pg (26-34) MCHC 33.9 g/dl (32-36) RDW 13.7 % (11.5-14.5) Plt Count 248 k/mm3 (150-375) MPV 9.8 fl (7.4-10.4) Immature Gran % (Auto) 0.4 % (0-0.5) Neut % (Auto) 73.2 H % (45.5-73.1) Lymph % (Auto) 15.7 L % (18.3-44.2) Keith % (Auto) 9.7 H % (2.6-8.5) Eos % (Auto) 0.8 % (0-4.4) Baso % (Auto) 0.2 % (0.2-1.2) Lymph # (Auto) 1.94 K/mm3 (0.9-3.2) Keith # (Auto) 1.2 H K/mm3 (0.1-0.6) Eos # (Auto) 0.1 K/mm3 (0-0.3) Baso # (Auto) 0.0 K/mm3 (0.0-0.1) Abs Immat Gran (auto) 0.05 H K/mm3 (0.00-0.031) Absolute Neuts (auto) 9.1 H K/mm3 (1.3-6.7) Absolute Nucleated RBC 0.000 K/mm3 (0.0-0.012) Nucleated RBC % 0.0 % (0.0-0.2) PT 14.1 Seconds (11.1-14.7) INR 1.1 APTT 30.8 Seconds (22.3-36.8) Sodium 137 mmol/L (137-145) Potassium 3.0 L mmol/L (3.4-5.0) Chloride 100 mmol/L (98-107) Carbon Dioxide 30 mmol/L (22-30) Anion Gap 7 mmol/L (4-12) BUN 22 H mg/dL (7-17) Creatinine 1.11 H mg/dL (0.7-1.0) Estim Creat Clear Calc Not Reportable Estimated GFR 48 L (59 - ) Glucose 108 mg/dL (65-110) Calcium 8.8 mg/dL (8.4-10.2) Magnesium 1.8 mg/dL (1.6-2.3) Total Bilirubin 0.8 mg/dL (0.2-1.3) AST 21 U/L (14-36) ALT 12 U/L (6-35) Alkaline Phosphatase 77 U/L (38-126) Total Protein 7.1 g/dL (6.3-8.2) Albumin 4.0 g/dL (3.5-5.1) Lipase 33 U/L (23-300) Urine Color Dark yellow (Yellow) Urine Appearance Clear (Clear) Urine pH 7.0 (5.0-9.0) Ur Specific [place] 1.025 (1.001-1.035) Urine Protein Trace mg/dL (Negative) Urine Glucose (UA) Negative mg/dL (Negative) Urine Ketones Trace H mg/dL (Negative) Ur Blood (Man) Negative (Negative) Urine Nitrate Negative (Negative) Urine Bilirubin Negative (Negative) Urine Urobilinogen 1.0 mg/dL (<2.0) Leukocyte Esterase Rfl 2+ H AMANDEEP/UL (Negative) Urine RBC 0-2 /hpf (0-2) Urine WBC 21-50 H /hpf (0-3) Ur Squamous Epith Cells Few /hpf (Few) Urine Bacteria None seen /hpf Urine Casts 0-2 Patient hx anesthesia problems: none Family hx anesthesia problems: none Results Review: All pre-operative results and documents have been reviewed as part of the pre-operative evaluation. [facility] Past Medical History Medical History Cataracts, bilateral Maturing GERD (gastroesophageal reflux disease) Obstructive sleep apnea Non adherent to CPAP therapy Hypercholesterolemia TIA (transient ischemic attack) 2014 Obesity Chronic low back pain Managed by Dr. Brennan currently getting treated with injections Depression Surgical History Surgical History H/O cervical spine surgery 1993 with anterior cervical fusion History of hysterectomy for benign disease 1984 due to dysfunctional uterine bleeding History of lumbar surgery 1994 and 2017 History of total left knee replacement (TKR) 2012 History of total right knee replacement (TKR) 2010 History of gastric bypass In 2002 with subsequent reversal after prolonged hospitalization due to infection. 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 She has 1 daughter. Primary care physician: She reports that her primary care physician Dr. Keanu Urias retired last summer. She has not yet become established with a new provider. Code status: Full code Surrogate decision maker: Aure Rodriguez (daughter) Smoking status: Never smoker Second hand tobacco smoke exposure: Yes Alcohol intake: never Substance use: never Substance use type: does not use Lack of Transportation: No Lack of Food: Never True Current Housing: I Have Housing Concerned About Future Housing: No Difficulty Paying Gas/Electric Bills: No Difficulty Paying for Meds: No Currently Unemployed: No Education: High School Diploma/GED Difficulty w/ Childcare or Family Care: No Gender identity (if verbalized by the patient): Female Sexual Orientation (if Verbalized by the Patient): Straight or Heterosexual Spiritual care concerns: No Anes - Eval Final PreProcedure Day of Procedure 09/25/25 10:17 Patient weight: obese Heart: regular rate and rhythm Lungs: clear to auscultation Airway: Mallampati scale class II Neurological: alert and oriented Last oral intake: >/= 8 hours ASA classification: III Emergent: no Anesthetic plan: proceed Anesthesia type and monitoring: general ETT and standard monitoring Results Review: All pre-operative results and documents have been reviewed as part of the pre-operative evaluation. Informed Consent: The patient's anesthetic plan and its attendant risks and benefits were discussed with the patient/family/POA. Questions were solicited and answers provided to the satisfaction of the patient/family/POA.
--- NOTE | 2025-09-25 10:42 | SUR.PREOP ---
Per Dr. Multani, give 1400 Aztreonam dose now. Medication requested from pharmacy.
--- NOTE | 2025-09-25 10:43 | WPDHPUPDATE1 ---
History and Physical Update Update Date/Time: 09/25/25 10:43 History and Physical has been reviewed, including an updated exam of the patient. There are NO changes in the patient's condition. Risks, benefits, and alternatives have been discussed and questions answered. Patient agrees to proceed with procedure.
[2025-09-25] MEDS: LIDO 1%/EPINEPHRINE 1:100,000 20 ML VIAL 30 ML INFILTRATE (11:48)
--- NOTE | 2025-09-25 12:14 | S_PTH ---
PATIENT: Janette Wu LOC: [id number] U#:[id number] AGE/SX: 79/F ROOM: 251 RE09/26/[address]: Guillermo Multani MD : 1945 BED: 01 DIS: 09/28/2025 SPEC #: [id number] RECD: 09/28/25 08:10 STATUS: SAI REIván #: [id number] ANNA: 09/25/25 12:[address]: Guillermo Multani DEPT: [facility] Surgical RECD BY: Falguni Burrows ENTERED: 09/28/25 08:10 SP TYPE: Surgical OTHR DR: Kyle JeffriesMD Tissues: A - Appendix Procedures: Hematoxylin and Eosin Stain Gross and Microscopic Level 3
--- NOTE | 2025-09-25 13:05 | P.OP_ITS ---
Procedure Note - Detailed Date of Procedure 09/25/25 Pre-op Diagnosis Acute appendicitis Post-op Diagnosis Same Procedure Performed Open appendectomy Surgeon Guillermo Multani MD Siebel Administrator Narcisa Stafford [facility] Anesthesia General Indications Patient is a 79-year-old female who presented to the emergency room with worsening right lower quadrant abdominal pain. Workup in emergency room showed a mild leukocytosis of 12,000. CT scan abdomen pelvis showed a dilated appendix with some periappendiceal inflammation without perforation or abscess. Appendiceal wall was thickened. Patient's exam was consistent with acute appendicitis with pain in the right lower quadrant over McBurney's point. The patient has had a complex abdominal surgical history with prior gastric bypass. Also had incisional hernia repair via open approach with placement of a very large piece of intraperitoneal mesh which can be seen on CT very easily. She also has a left abdominal wall pain pump in place. For this reason I discussed with the patient trying to stay out of her mesh and performing a open appe ndectomy with the right lower quadrant incision rather than a laparoscopic procedure. She agrees. Findings The patient had acute appendicitis with severe inflammation of appendix throughout its whole length. However the base of the appendix was viable but moderately inflamed. No periappendiceal abscess was noted. Quadrants is in remained lateral and inferior to the intraperitoneal mesh. None of the mesh was cut during the surgery. Description of Procedure After informed consent was obtained patient brought to the operating room she was placed supine position and general endotracheal anesthesia was administered. A Dennis catheter was placed decompress the bladder the abdomen was then prepped and draped usual sterile fashion. Time-out was then performed correctly identifying the patient as well as procedure to be performed. She was already on scheduled IV antibiotics. I then palpatd he right anterior superior iliac spine and then I marked off a transverse incision over McBurney's point between the umbilicus and the right anterior superior iliac spine. I then made incision with the scalpel then dissected down through the generous subcutaneous tissue layer dividing the Jaky's fascia and then dissecting the adipose tissue off of the external oblique aponeurosis. Once this was done I then incised the external oblique aponeurosis diagonally along the direction of its fibers. I then the aponeurosis from its underlying internal oblique muscle fibers. I then opened the internal oblique muscle fibers transversely along the direction of its fibers splitting the muscle not dividing any muscle. Medially I divided about 1cm of the lateral edge of the right rectus muscle. I then encountered the transversalis fascia and divided this with electrocautery and then opened the peritoneum sharply with Metzenbaum scissors. I then opened peritoneum transversely and then placed retractors in to improve exposure. Small bowel was packed medially with a moistened sponge. I could feel that the edge of the mesh was superior and medial to my incision. Laterally in the right lower quadrant I was able to palpate the inflamed appendix and then when I was able to see it I was able to grasp it with a Pancho clamp. With traction on the appendix I then bluntly dissected the peritoneum and deliver the appendix up into the incision. I then proceeded to divide the mesoappendix between clamps and ligated the mesoappendix with 0 silk sutures. The appendix was says pretty severely inflamed throughout its hold course however the base of the appendix was viable and there was no need to for partial cecetomy. I then placed a right angle clamp across the base of the appendix and then ligated the base of the appendix with a 0 silk suture. The appendix was then divided distal to the ligating suture with sharp scissors. The appendix was then passed off table sent to pathology for examination. A 2nd suture was then used to ligate the appendiceal stump. A 0 Vicryl endoloop was then used to ligate the base of the appendiceal stump just proximal to the ligating the 0 silk suture. I then irrigated out the right lower quadrant sterile saline solution hemostasis was good. I then removed the sponges from the abdomen and proceeded to close the i ncision. The peritoneal layer was then closed utilizing a running 2-0 chromic suture. This is then followed by a running 0 PDS suture to approximate the edges of the internal oblique muscle fibers and transversalis fascia. Lastly a 0 PDS suture was used to reapproximate the edges of the external oblique aponeurosis. The incision was then irrigated sterile saline solution. 1% lidocaine mixed with 0.5% Marcaine with some epinephrine injected underneath the external oblique aponeurosis and the subcutaneous tissues around the incision. The incision was then closed utilizing multiple layers of interrupted 3-0 Vicryl sutures in the subcutaneous tissues. The skin edges were then approximated utilizing skin junior. A sterile dressing was then applied. The patient tolerated the procedure well no complications. All sponges, needles, and instrument counts were correct at the end procedure. EBL was _25__cc. The patient was awakened and taken to recovery in stable and satisfactory condition. Implants None Estimated Blood Loss 25 Drains No Packing No Pathology Yes ( appendix sent to pathology) Complications No immediate complications Condition Stable Disposition PACU [facility] Billing Surgery - Charge Forward: Surgery Billing
[2025-09-25] MEDS: fentaNYL CITRATE INJ (*CRX) 100 MCG/2 ML VIAL 25 MCG IV PUSH ×4 (13:27→13:47)
--- NOTE | 2025-09-25 14:40 | PC.NURSE ---
Returned from OR via stretcher. Voiding without difficulty.
[2025-09-25] MEDS: IBUPROFEN IV 800 MG/200 ML 800 MG/200 ML BAG 400 MG IVPB ×2 (14:49→21:30)
[2025-09-25] MEDS: oxyCODONE HCL (*CRX) 5 MG TAB IR PO (15:12)
[2025-09-25] MEDS: MORPHINE SULFATE (*CRX) 4 MG/ML INJ IV PUSH (20:00)
[2025-09-25] MEDS: HYDROcodone/acetaminophen (*CRX) 5-325 MG TABLET 1 TAB PO (21:34)
[2025-09-26] VITALS: BP 130/62; PULSE 82; RESP 18; TEMP 36.9; O2SAT 97
[2025-09-26 04:00] VITALS: BP 139/64; PULSE 82; RESP 18; TEMP 36.6; O2SAT 94
[2025-09-26] MEDS: IBUPROFEN IV 800 MG/200 ML 800 MG/200 ML BAG 300 MG IVPB (04:56)
[2025-09-26 05:40] LABS: Hematocrit 34.4 % (37.0-47.0); Hemoglobin 11.1 g/dL (12.0-15.0); Mean Corpuscular HGB Conc 32.3 g/dl (32-36); Mean Corpuscular Hemoglobin 29.8 pg (26-34); Mean Corpuscular Volume 92.2 fl (80-100); Platelet Count Result 225 k/mm3 (150-375); Red Blood Count 3.73 M/mm3 (4.2-5.4); White Blood Count 14.0 K/mm3 (4.5-10.0)
[2025-09-26 05:58] LABS: Anion Gap 6 mmol/L (4-12); Blood Urea Nitrogen 18 mg/dL (7-17); Calcium 8.1 mg/dL (8.4-10.2); Carbon Dioxide 33 mmol/L (22-30); Chloride 102 mmol/L (98-107); Estimated CRCL calculation 44 ml/min; Estimated Glomerular Filt Rate 44; Glucose 117 mg/dL (65-110); Potassium 3.7 mmol/L (3.4-5.0); Sodium 141 mmol/L (137-145)
[2025-09-26] MEDS: AZTREONAM 1 GM in SODIUM CHLORIDE 0.9% IV 50 ML IVPB ×3 (06:00→22:52)
[2025-09-26 08:00] VITALS: BP 128/53; PULSE 80; RESP 16; TEMP 36.3; O2SAT 97
[2025-09-26] MEDS: POTASSIUM CHLORIDE 20 MEQ ER TABLET PO (10:15)
[2025-09-26] MEDS: LIDOCAINE 5% PATCH 1 PATCH TRANSDERM (10:16)
[2025-09-26] MEDS: PANTOPRAZOLE 40 MG TABLET PO (10:16)
[2025-09-26] MEDS: CITALOPRAM HYDROBROMIDE 20 MG TABLET 40 MG PO (10:17)
[2025-09-26] MEDS: PROPRANOLOL HCL ER 60 MG CAPSULE 180 MG PO (10:17)
[2025-09-26] MEDS: SIMVASTATIN 20 MG TABLET 40 MG PO (10:17)
[2025-09-26] MEDS: buPROPion HCL XL (24 HR) 150 MG TABCR 300 MG PO (10:18)
[2025-09-26 12:00] VITALS: BP 97/57; PULSE 75; RESP 16; TEMP 36.6; O2SAT 99
[2025-09-26] MEDS: IBUPROFEN IV 800 MG/200 ML 800 MG/200 ML BAG 200 MG IVPB ×2 (12:58→22:05)
[2025-09-26] MEDS: MORPHINE SULFATE (*CRX) 4 MG/ML INJ IV PUSH (12:59)
--- NOTE | 2025-09-26 14:30 | P.PN_ITS ---
Progress Note: A&P Assessment and Plan (1) Appendicitis: Code(s): K37 - Unspecified appendicitis Status: Acute Assessment and Plan: Postop day 1 after open appendectomy. Continue Azactam for now [place] [id number] [place] [id number]. There was no perforation or periappendiceal abscess but the patient does have a large piece of intraperitoneal mesh and so I will continue IV antibiotics for now. Continue regular diet as tolerated. Continue to ambulate to the bathroom and sitting up in chair. We will make sure she is on some Lovenox for DVT prophylaxis and uses SCDs while in bed. Encouraged to transition over to using oral narcotic pain medications as needed. Asked her to drink a little more fluid as well. Hopefully she can be discharged home in the next 24 to 48 hours. Subjective Date/time seen: 09/26/25 14:30 Interval history: Patient seems to be doing fairly well. Still complains of having right lower quadrant pain but she has an open appendectomy incision. No fever. White blood cell counts is 14,000 today when it was 12,000 preop. Overall though the patient seems to be better clinically. She is able to ambulate to the bathroom and urinate spontaneously. She has been able to sit up in a chair. She tolerated some solid food earlier today. She is still requiring morphine for IV pain medications. I encouraged her to use oral pain medications since she is eating. Exam GI: Other: Abdomen is obese but soft. Right lower quadrant incision dressed and dry. Rogerson in place. No redness but some minor ecchymosis. No hematoma. Mild expected tenderness. Objective Data Vital Signs Vital Signs: Vital Signs - 24 hr 09/25/25 14:45 09/25/25 14:50 09/25/25 15:05 Temperature 36.2 C L 36.4 C Pulse Rate 74 73 Respiratory Rate 16 16 16 Blood Pressure 143/54 H 125/51 L Pulse Oximetry 95 96 95 Oxygen Delivery Room Air 09/25/25 15:35 09/25/25 16:35 09/25/25 20:00 Temperature 36.2 C L 36.2 C L 36.7 C Pulse Rate 73 70 78 Respiratory Rate 16 16 12 Blood Pressure 125/74 128/53 L 134/57 L Pulse Oximetry 95 96 Oxygen Delivery 09/26/25 00:00 09/26/25 04:00 09/26/25 08:00 Temperature 36.9 C 36.6 C 36.3 C L Pulse Rate 82 82 80 Respiratory Rate 18 18 16 Blood Pressure 130/62 139/64 128/53 L Pulse Oximetry 97 94 97 Oxygen Delivery 09/26/25 12:00 Temperature 36.6 C Pulse Rate 75 Respiratory Rate 16 Blood Pressure 97/57 L Pulse Oximetry 99 Oxygen Delivery Intake/Output Intake/Output: Intake & Output 09/23/25 09/24/25 09/25/25 09/26/25 23:59 23:59 23:59 23:59 Intake Total 2480 368 Output Total 451 Balance 2480 -83 Meds/Results Medications: Active Medications Generic Name Dose Route Start Last Admin Trade Name Freq PRN Reason Stop Dose Admin Acetaminophen 1,000 mg 09/25/25 12:58 Acetaminophen 500 Mg Tablet PO Q6H PRN Mild Pain (1-3) or Fever Hydrocodone Bitart/Acetaminophen 1 tab 09/25/25 12:58 09/25/25 21:34 Hydrocodone/Acetaminophen (*Crx) 5-325 Mg Tablet PO 1 tab Q4H PRN Administration Pain Rated 4-6 Aripiprazole 2 mg 09/26/25 09:00 09/26/25 10:16 Aripiprazole 2 Mg Tablet PO 2 mg DAILY MICHAEL Administration Bupropion HCl 300 mg 09/26/25 09:00 09/26/25 10:18 Bupropion Hcl Xl (24 Hr) 150 Mg Tabcr PO 300 mg DAILY MICHAEL Administration Citalopram Hydrobromide 40 mg 09/26/25 09:00 09/26/25 10:17 Citalopram Hydrobromide 20 Mg Tablet PO 40 mg DAILY MICHAEL Administration Diphenhydramine HCl 25 mg 09/25/25 05:23 09/25/25 06:00 Diphenhydramine Hcl Cap 25 Mg Capsule PO 25 mg Q6H PRN Administration Itching Hydrochlorothiazide 50 mg 09/26/25 09:00 09/26/25 10:15 Hydrochlorothiazide 25 Mg Tablet PO 50 mg DAILY MICHAEL Administration Aztreonam 1 gm/ Sodium 50 mls @ 100 mls/hr 09/25/25 06:00 09/26/25 06:30 Chloride IVPB Infused Q8H MICHAEL Infusion Ibuprofen 800 mg in 200 mls @ 400 mls/hr 09/25/25 13:00 09/26/25 12:58 Caldolor 800 Mg/200 Ml IVPB 200 mls/hr Q8H MICHAEL Administration Lidocaine 1 patch 09/26/25 09:00 09/26/25 10:16 Lidocaine 5% Patch TRANSDERM 1 patch DAILY MICHAEL Administration Morphine Sulfate 4 mg 09/25/25 12:58 09/26/25 12:59 Morphine Sulfate (*Crx) 4 Mg/Ml Inj IV PUSH 4 mg Q3H PRN Administration Pain Rated 7-10 IF NPO Oxycodone HCl 5 mg 09/25/25 12:58 09/25/25 15:12 Oxycodone Hcl (*Crx) 5 Mg Tab Ir PO 5 mg Q4H PRN Administration Pain Rated 7-10 Pantoprazole Sodium 40 mg 09/26/25 09:00 09/26/25 10:16 Pantoprazole 40 Mg Tablet PO 40 mg DAILY MICHAEL Administration Potassium Chloride 20 meq 09/26/25 09:00 09/26/25 10:15 Potassium Chloride 20 Meq Er Tablet PO 20 meq DAILY MICHAEL Administration Propranolol HCl 180 mg 09/26/25 09:00 09/26/25 10:17 Propranolol Hcl Er 60 Mg Capsule PO 180 mg QAM MICHAEL Administration Simvastatin 40 mg 09/26/25 09:00 09/26/25 10:17 Simvastatin 20 Mg Tablet PO 40 mg DAILY MICHAEL Administration Topiramate 25 mg 09/26/25 21:00 Topiramate 25 Mg Tablet PO HS MICHAEL Trazodone HCl 100 mg 09/25/25 21:00 09/25/25 21:29 Trazodone Hcl 50 Mg Tablet PO 100 mg HS MICHAEL Administration Radiology Results: ITS Impressions Abdomen/Pelvis CT 09/25/25 11:46 IMPRESSION: 1. Acute appendicitis. No complicating features. Labs Labs: Laboratory Results - last 24 hr 09/26/25 05:08 WBC 14.0 H RBC 3.73 L Hgb 11.1 L Hct 34.4 L MCV 92.2 MCH 29.8 MCHC 32.3 RDW 13.8 Plt Count 225 MPV 10.1 Sodium 141 Potassium 3.7 Chloride 102 Carbon Dioxide 33 H Anion Gap 6 BUN 18 H Creatinine 1.19 H Estim Creat Clear Calc 44 Estimated GFR 44 L Glucose 117 H Calcium 8.1 L
[2025-09-26 16:00] VITALS: BP 98/53; PULSE 72; RESP 16; TEMP 36.4; O2SAT 93
[2025-09-26] MEDS: HYDROcodone/acetaminophen (*CRX) 5-325 MG TABLET 1 TAB PO ×2 (16:12→22:51)
[2025-09-26] MEDS: oxyCODONE HCL (*CRX) 5 MG TAB IR PO (18:15)
[2025-09-26 19:59] VITALS: BP 112/58; PULSE 66; RESP 16; TEMP 36.3; O2SAT 92
[2025-09-26] MEDS: TOPIRAMATE 25 MG TABLET PO (22:04)
[2025-09-26] MEDS: LACTATED RINGERS 500 ML 999 ML IV CONT (23:40)
[2025-09-27] VITALS (9 sets, daily range): BP systolic 101–129; BP diastolic 44–66; PULSE 59–78; RESP 16–18; TEMP 36.4–36.8; O2SAT 91–95
[2025-09-27] MEDS: oxyCODONE HCL (*CRX) 5 MG TAB IR PO ×2 (03:45→09:47)
[2025-09-27 05:17] LABS: Hematocrit 29.1 % (37.0-47.0); Hemoglobin 9.4 g/dL (12.0-15.0); Immature Granulocyte Percent A 0.4 % (0-0.5); Lymphocytes Absolute Auto 1.68 K/mm3 (0.9-3.2); Mean Corpuscular HGB Conc 32.3 g/dl (32-36); Mean Corpuscular Hemoglobin 29.7 pg (26-34); Mean Corpuscular Volume 92.1 fl (80-100); Nucleated Red Blood Cells Absolute Auto 0.000 K/mm3 (0.0-0.012); Nucleated Red Blood Cells Perc 0.0 % (0.0-0.2); Platelet Count Result 202 k/mm3 (150-375); Red Blood Count 3.16 M/mm3 (4.2-5.4); White Blood Count 9.5 K/mm3 (4.5-10.0)
[2025-09-27] MEDS: IBUPROFEN IV 800 MG/200 ML 800 MG/200 ML BAG 400 MG IVPB (05:36)
[2025-09-27 05:44] LABS: Anion Gap 3 mmol/L (4-12); Blood Urea Nitrogen 20 mg/dL (7-17); Calcium 7.7 mg/dL (8.4-10.2); Carbon Dioxide 34 mmol/L (22-30); Chloride 102 mmol/L (98-107); Estimated CRCL calculation 40 ml/min; Estimated Glomerular Filt Rate 39; Glucose 93 mg/dL (65-110); Potassium 2.9 mmol/L (3.4-5.0); Sodium 139 mmol/L (137-145)
[2025-09-27] MEDS: AZTREONAM 1 GM in SODIUM CHLORIDE 0.9% IV 50 ML IVPB (06:07)
[2025-09-27] MEDS: MAGNESIUM SULF 2 GM/WATER 50ML 2 GM/50 ML BAG IVPB (09:29)
[2025-09-27] MEDS: SIMVASTATIN 20 MG TABLET 40 MG PO (09:33)
[2025-09-27] MEDS: buPROPion HCL XL (24 HR) 150 MG TABCR 300 MG PO (09:33)
[2025-09-27] MEDS: PANTOPRAZOLE 40 MG TABLET PO (09:33)
[2025-09-27] MEDS: CITALOPRAM HYDROBROMIDE 20 MG TABLET 40 MG PO (09:33)
[2025-09-27] MEDS: POTASSIUM CHLORIDE 20 MEQ ER TABLET PO (09:33)
[2025-09-27] MEDS: LIDOCAINE 5% PATCH 1 PATCH TRANSDERM (09:34)
[2025-09-27] MEDS: LACTATED RINGERS 1,000 ML 130 ML IV CONT ×2 (09:51→21:22)
[2025-09-27] MEDS: POTASSIUM CHLORIDE INJ 40 MEQ in SODIUM CHLORIDE 0.9% IV 500 ML 130 MEQ IVPB (12:01)
--- NOTE | 2025-09-27 12:33 | P.PN_ITS ---
Progress Note: A&P Assessment and Plan (1) Appendicitis: Code(s): K37 - Unspecified appendicitis Status: Acute Assessment and Plan: Postop day 2 after open appendectomy. White blood count is normalized. We will go ahead stop the IV antibiotics today. No fever. Some hypotension last night but I think she was volume depleted that she was not drinking very much was not on IV fluids. She has been given some IV fluid boluses and some maintenance fluids today. She feels better. Blood pressure is better. Her potassium was low at 2.9 today. IV potassium boluses have been given and some IV fluids have been started with some potassium in it. We will continue to give her oral pain medications today. She is tolerating regular food. Anticipate discharge home tomorrow. Subjective Date/time seen: 09/27/25 12:33 Interval history: Patient is now postop day 2 after open appendectomy for acute appendicitis. Last evening she had relative hypotension with blood pressures 90s over 40s. She was coherent and otherwise clinically stable. He she had not been drinking very much during the day and so she was given 500cc of lactated Ringer bolus. Pain medications were held and her home blood pressure medications were held. This morning she is doing better and her systolic blood pressures were in the 110s. Her pain was still controlled with oral pain medications and she was tolerating solid food. White blood cell count is normal. Her potassium was low at 2.9 today. Placement with IV bolus potassium has been ordered. He was also given some IV fluids for maintenance fluids potassium. Exam GI: Other: The right lower quadrant surgical incision is intact with junior in place. Minor bruising but no hematoma. No redness or drainage. Objective Data Vital Signs Vital Signs: Vital Signs - 24 hr 09/26/25 16:00 09/26/25 19:59 09/26/25 20:00 Temperature 36.4 C 36.3 C L Pulse Rate 72 66 Respiratory Rate 16 16 Blood Pressure 98/53 L 112/58 L Pulse Oximetry 93 92 Oxygen Delivery Room Air 09/27/25 00:00 09/27/25 04:00 09/27/25 08:00 Temperature 36.8 C 36.6 C 36.7 C Pulse Rate 78 67 70 Respiratory Rate 18 16 16 Blood Pressure 119/44 L 121/51 L Pulse Oximetry 91 93 92 Oxygen Delivery 09/27/25 09:43 09/27/25 09:47 09/27/25 12:00 Temperature 36.4 C L 36.4 C L Pulse Rate 68 68 64 Respiratory Rate 18 18 17 Blood Pressure 128/66 101/50 L Pulse Oximetry 94 94 95 Oxygen Delivery Room Air Intake/Output Intake/Output: Intake & Output 09/24/25 09/25/25 09/26/25 09/27/25 23:59 23:59 23:59 23:59 Intake Total 2480 868 1330 Output Total 451 650 Balance 2480 824 680 Meds/Results Medications: Active Medications Generic Name Dose Route Start Last Admin Trade Name Freq PRN Reason Stop Dose Admin Acetaminophen 1,000 mg 09/25/25 12:58 Acetaminophen 500 Mg Tablet PO Q6H PRN Mild Pain (1-3) or Fever Hydrocodone Bitart/Acetaminophen 1 tab 09/25/25 12:58 09/26/25 22:51 Hydrocodone/Acetaminophen (*Crx) 5-325 Mg Tablet PO 1 tab Q4H PRN Administration Pain Rated 4-6 Aripiprazole 2 mg 09/26/25 09:00 09/27/25 09:33 Aripiprazole 2 Mg Tablet PO 2 mg DAILY MICHAEL Administration Bupropion HCl 300 mg 09/26/25 09:00 09/27/25 09:33 Bupropion Hcl Xl (24 Hr) 150 Mg Tabcr PO 300 mg DAILY MICHAEL Administration Citalopram Hydrobromide 40 mg 09/26/25 09:00 09/27/25 09:33 Citalopram Hydrobromide 20 Mg Tablet PO 40 mg DAILY MICHAEL Administration Diphenhydramine HCl 25 mg 09/25/25 05:23 09/25/25 06:00 Diphenhydramine Hcl Cap 25 Mg Capsule PO 25 mg Q6H PRN Administration Itching Hydrochlorothiazide 50 mg 09/26/25 09:00 09/26/25 10:15 Hydrochlorothiazide 25 Mg Tablet PO 50 mg On Hold: 09/26/25 23:22 DAILY MICHAEL Administration Aztreonam 1 gm/ Sodium 50 mls @ 100 mls/hr 09/25/25 06:00 09/27/25 06:07 Chloride IVPB 100 mls/hr Q8H MICHAEL Administration Potassium Chloride 40 meq/ 520 mls @ 130 mls/hr 09/27/25 08:45 09/27/25 12:01 Sodium Chloride IVPB 09/27/25 12:44 130 mls/hr ONCE ONE Administration Lactated Ringer's 1,000 mls @ 130 mls/hr 09/27/25 08:30 09/27/25 09:51 Lr - Lactated Ringers Iv IV CONT 130 mls/hr .[id number] MICHAEL Administration Lidocaine 1 patch 09/26/25 09:00 09/27/25 09:34 Lidocaine 5% Patch TRANSDERM 1 patch DAILY MICHAEL Administration Morphine Sulfate 4 mg 09/25/25 12:58 09/26/25 12:59 Morphine Sulfate (*Crx) 4 Mg/Ml Inj IV PUSH 4 mg Q3H PRN Administration Pain Rated 7-10 IF NPO Oxycodone HCl 5 mg 09/25/25 12:58 09/27/25 09:47 Oxycodone Hcl (*Crx) 5 Mg Tab Ir PO 5 mg Q4H PRN Administration Pain Rated 7-10 Pantoprazole Sodium 40 mg 09/26/25 09:00 09/27/25 09:33 Pantoprazole 40 Mg Tablet PO 40 mg DAILY MICHAEL Administration Potassium Chloride 20 meq 09/26/25 09:00 09/27/25 09:33 Potassium Chloride 20 Meq Er Tablet PO 20 meq DAILY MICHAEL Administration Propranolol HCl 180 mg 09/26/25 09:00 09/26/25 10:17 Propranolol Hcl Er 60 Mg Capsule PO 180 mg On Hold: 09/26/25 23:22 QAM MICHAEL Administration Simvastatin 40 mg 09/26/25 09:00 09/27/25 09:33 Simvastatin 20 Mg Tablet PO 40 mg DAILY MICHAEL Administration Topiramate 25 mg 09/26/25 21:00 09/26/25 22:04 Topiramate 25 Mg Tablet PO 25 mg HS MICHAEL Administration Trazodone HCl 100 mg 09/25/25 21:00 09/26/25 22:04 Trazodone Hcl 50 Mg Tablet PO 100 mg HS MICHAEL Administration Radiology Results: ITS Impressions Abdomen/Pelvis CT 09/25/25 11:46 IMPRESSION: 1. Acute appendicitis. No complicating features. Labs Labs: Laboratory Results - last 24 hr 09/27/25 05:02 WBC 9.5 RBC 3.16 L Hgb 9.4 L Hct 29.1 L MCV 92.1 MCH 29.7 MCHC 32.3 RDW 14.1 Plt Count 202 MPV 10.1 Immature Gran % (Auto) 0.4 Neut % (Auto) 70.2 Lymph % (Auto) 17.6 L Reynolds % (Auto) 9.0 H Eos % (Auto) 2.3 Baso % (Auto) 0.5 Lymph # (Auto) 1.68 Reynolds # (Auto) 0.9 H Eos # (Auto) 0.2 Baso # (Auto) 0.1 Abs Immat Gran (auto) 0.04 H Absolute Neuts (auto) 6.7 Absolute Nucleated RBC 0.000 Nucleated RBC % 0.0 Sodium 139 Potassium 2.9 L Chloride 102 Carbon Dioxide 34 H Anion Gap 3 L BUN 20 H Creatinine 1.33 H Estim Creat Clear Calc 40 Estimated GFR 39 L Glucose 93 Calcium 7.7 L
[2025-09-27] MEDS: HYDROcodone/acetaminophen (*CRX) 5-325 MG TABLET 1 TAB PO ×2 (16:55→21:09)
[2025-09-27] MEDS: TOPIRAMATE 25 MG TABLET PO (20:25)
[2025-09-28] MEDS: HYDROcodone/acetaminophen (*CRX) 5-325 MG TABLET 1 TAB PO ×2 (01:38→08:23)
[2025-09-28 04:00] VITALS: BP 138/58; PULSE 74; RESP 16; TEMP 36.6; O2SAT 95
[2025-09-28 05:00] LABS: Hematocrit 27.9 % (37.0-47.0); Hemoglobin 9.1 g/dL (12.0-15.0); Mean Corpuscular HGB Conc 32.6 g/dl (32-36); Mean Corpuscular Hemoglobin 30.3 pg (26-34); Mean Corpuscular Volume 93.0 fl (80-100); Platelet Count Result 208 k/mm3 (150-375); Red Blood Count 3.00 M/mm3 (4.2-5.4); White Blood Count 6.6 K/mm3 (4.5-10.0)
[2025-09-28 05:22] LABS: Anion Gap 2 mmol/L (4-12); Blood Urea Nitrogen 16 mg/dL (7-17); Calcium 7.7 mg/dL (8.4-10.2); Carbon Dioxide 35 mmol/L (22-30); Chloride 104 mmol/L (98-107); Estimated CRCL calculation 48 ml/min; Estimated Glomerular Filt Rate 49; Glucose 89 mg/dL (65-110); Potassium 3.1 mmol/L (3.4-5.0); Sodium 141 mmol/L (137-145)
[2025-09-28 08:00] VITALS: BP 137/59; PULSE 78; RESP 16; TEMP 36.5; O2SAT 95
[2025-09-28] MEDS: LIDOCAINE 5% PATCH 1 PATCH TRANSDERM (08:22)
[2025-09-28 08:23] VITALS: PULSE 74; RESP 16; O2SAT 95
[2025-09-28] MEDS: POTASSIUM CHLORIDE 20 MEQ ER TABLET PO (08:23)
[2025-09-28] MEDS: CITALOPRAM HYDROBROMIDE 20 MG TABLET 40 MG PO (08:23)
[2025-09-28] MEDS: SIMVASTATIN 20 MG TABLET 40 MG PO (08:23)
[2025-09-28] MEDS: PANTOPRAZOLE 40 MG TABLET PO (08:23)
[2025-09-28] MEDS: buPROPion HCL XL (24 HR) 150 MG TABCR 300 MG PO (08:23)
--- NOTE | 2025-09-28 09:16 | PM.DS ---
DS: Admitting Diagnosis Discharge Date September 28, 2025 Admitting Diagnosis Acute appendicitis DS: Discharge Diagnosis Discharge Diagnosis (1) Appendicitis: Code(s): K37 - Unspecified appendicitis Status: Acute DS: Summary Hospital Course Reason for hospitalization: Acute appendicitis Hospital Course: Patient came to the [facility] Emergency room on September 24, 2025 complaining of a 12hour history of worsening lower abdominal pain. The pain seemed to be worse in the right lower quadrant. She had an elevated white blood cell count on exam consistent with acute appendicitis. CT scan of the pelvis was performed showing acute appendicitis without perforation or abscess. She was admitted to the hospital and started on IV antibiotics. Kept NPO overnight. Given IV fluids. The next morning she was then taken to the operating room she underwent an open appendectomy. The open approach was chosen because the patient has a left abdominal wall pain pump in place which would interfere with placement of ports for laparoscopic appendectomy as well as having a very large piece of intraperitoneal abdominal wall mesh her prior hernia repair. An open appendectomy would avoid violating the mesh which seemed to be in very good position and decrease chances of infection of the mesh. She underwent the open appendectomy without issues. Postoperatively her course and recovery was uneventful and then was transferred back to the surgical floor for routine care afterwards. The day after her [place] [address] to [address]. However she remained hemodynamically stable and was afebrile. She remained on IV antibiotics for 48hours after surgery. This was due to the fact that she had a large piece of intraperitoneal mesh in place and she did have a pretty inflamed appendix. She had expected pain in the right lower quadrant abdominal wall where the incision was located. The incision was inspected and was clean dry and intact with jeremy in place without redness but there was a small amount of bruising. No hematoma was noted. She was given IV pain medications and then was transitioned eventually to oral pain medications. She was kept on her oral home medications. She tolerated clear liquids and advanced to regular diet within 12hours of her surgery without difficulty. Her IV antibiotics were stopped on postop day 2. She did have 1 issue with hypokalemia during her hospitalization and was given multiple doses of oral and IV boluses of potassium. And the day of discharge her potassium was 3.1 she was given additional dose of oral potassium supplementation of 40 mEq and instructed to eat some bananas when she got home. She was doing very well on postoperative day number 3 and was discharged home in improved condition. Status at Discharge Overall status at discharge: patient is progressing back to baseline Time Spent with Patient Time attestation: Total time spent providing and/or coordinating discharge services: Time spent: Less than 30 minutes Exam GI: Other: Abdomen is soft and obese. Right lower quadrant abdominal wall incision resolving ecchymosis. No redness or drainage. Jeremy in place. Expected mild tenderness to palpation. No incisional hernia. DS: Data Data Completed and Pending Pending studies at discharge: Pending at discharge 09/25/25 12:14 Surgical [PTH] Routine Labs on day of discharge: Labs from last 24 hours 09/28/25 04:36 WBC 6.6 RBC 3.00 L Hgb 9.1 L Hct 27.9 L MCV 93.0 MCH 30.3 MCHC 32.6 RDW 14.2 Plt Count 208 MPV 10.3 Sodium 141 Potassium 3.1 L Chloride 104 Carbon Dioxide 35 H Anion Gap 2 L BUN 16 Creatinine 1.09 H Estim Creat Clear Calc 48 Estimated GFR 49 L Glucose 89 Calcium 7.7 L Discharge Plan Discharge Attending physician on discharge: Guillermo Multani Discharging Clinician: Guillermo Multani Anticipated Discharge Date/Time: 09/28/25 09:09 Patient Disposition: Home Activity: other - see discharge instructions Diet: other - see discharge instructions Wound Care Instructions: other - see discharge instructions Discharge Instructions: May discharge patient home when stable. Patient to follow-up with Dr. Multani in the office in 7-10 days. Call [phone] for an appointment. May shower now but no soaking incision under water for 2 weeks. No lifting more than 5 to 10 lb for 4 weeks. No driving for 1 week or until no longer taking any narcotic pain medications. Resume all home medications and a prescription for narcotic pain medication will be sent to the patient's pharmacy if needed. May use Tylenol and/or ibuprofen in addition to or in place of narcotic pain medications. Regular diet as tolerated. Patient Instructions: Antibiotic Form Patient Language: Turkish Stand Alone Forms: General Discharge Information Follow-up/Referrals: Guillermo Multani MD [Physician, General Surgery] Referral Note: Follow-up with Dr. Multani in the office in 7 to 10 days for staple removal and wound check. Discharge Medications: New hydrocodone-acetaminophen 5-325 mg tablet 1 - 2 tablet PO Q4H PRN (Reason: pain) Qty: 20 0RF docusate sodium [Colace] 100 mg capsule 100 mg PO BID Qty: 30 1RF Continued simvastatin 40 mg tablet 40 mg PO DAILY potassium chloride 20 mEq tablet,ER particles/crystals 20 meq PO DAILY bupropion HCl 300 mg tablet extended release 24 hr 300 mg PO DAILY citalopram 40 mg tablet 40 mg PO DAILY hydrochlorothiazide 50 mg tablet 50 mg PO DAILY omeprazole 40 mg capsule,delayed release(DR/EC) 20 mg PO DAILY naproxen 375 mg tablet 375 mg PO BID aripiprazole 2 mg tablet 2 mg PO DAILY propranolol 120 mg capsule,extended release 24 hr 120 mg PO DAILY Rx Instructions: 60 mg daily and 120 mg daily to make 180 mg dose topiramate 25 mg capsule, sprinkle 25 mg PO .nightly trazodone 100 mg tablet 100 mg PO HS Date of admission: 09/26/25 10:35 Primary Care Provider: Mervin,Kyle Chávez Admitting Provider: Guillermo Multani Attending physician on admission: Guillermo Multani Condition: Stable
[2025-09-28 09:56] LABS: Magnesium 2.1 mg/dL (1.6-2.3)
== END 2025-09-28 10:51 | disposition home or self-care (01) | DRG 399 ==
LOC: ANHED 09-25 00:07 → ANH2MED 09-25 03:57
PROVIDERS: Student in an Organized Health Care Education/Training Program; Admitting Provider Surgery; PCP Internal Medicine; Visit Provider Surgery
PROC: 0DTJ4ZZ Resection of Appendix, Percutaneous Endoscopic Approach (ICD-10-PCS; CPT 44970; principal; 2025-09-25 11:00)
DX: K35.80 Unspecified acute appendicitis (principal); E78.00 Pure hypercholesterolemia, unspecified; K21.9 Gastro-esophageal reflux disease without esophagitis; G47.33 Obstructive sleep apnea (adult) (pediatric); E87.6 Hypokalemia; Z86.73 Personal history of transient ischemic attack (TIA), and cerebral infarction without residual deficits; Z98.1 Arthrodesis status; Z98.84 Bariatric surgery status; Z96.653 Presence of artificial knee joint, bilateral; Z90.721 Acquired absence of ovaries, unilateral; Z90.49 Acquired absence of other specified parts of digestive tract; Z90.710 Acquired absence of both cervix and uterus; E66.9 Obesity, unspecified; Z68.34 Body mass index [BMI] 34.0-34.9, adult
CPT/HCPCS: 36415; 74177; 80048; 80053; 81001; 83690; 83735; 85025; 85027; 85610; 85730; 87086; 87186; 88304; 96361; 96365; 96375; 96376; 99285; A9270; G0378; J0330; J0457; J0744; J1100; J1741; J1836; J2004; J2270; J2405; J2704; J3010; J3475; J3480; J7040; J7120; Q9967